=== PATIENT | male | born 1980 | race Caucasian/White ===

== ENCOUNTER 2025-01-16 10:36 | Inpatient (IN) | payer OTHER, SELFPAY ==
--- NOTE | ~2025-01-16 | MR_ITS ---
EXAM: MRI of the left foot without and with IV contrast. TECHNIQUE: Multiplanar multisequence MR imaging was performed through the left midfoot and forefoot before and after administration of contrast. INDICATION: Soft tissue ulceration the second digit Contrast: 10 mL Gadavist. PRIOR: January 16, 2025 x-ray FINDINGS: Lisfranc ligament: Intact Soft tissues: There is edema and moderate to severe fatty replacement of foot musculature. There is no hyperenhancement of the deep soft tissues. There is edema in the dorsal subcutaneous soft tissues without hyperenhancement. There is edema involving the deep and superficial soft tissues of the second digit at the base of the toe through the left lateral of the DIP joint with hyperenhancement. There is an 18 mm wide area of skin ulceration dorsal to the head of the proximal phalanx. There is no loculated fluid collection. There is a joint effusion with mild hyperenhancement of the synovium. Metatarsophalangeal (MTP) joint and sesamoids of the great toe: There is a joint effusion. Joint capsule structures and plantar plate complex are intact. Lesser MTP joints & Plantar plates: Intact and unremarkable. Bones/Marrow: The head of the proximal phalanx of the second digit demonstrates very subtle decreased signal on T1 imaging with cortical thinning. There is mildly increased signal on fluid sensitive sequences in the diaphysis through the head of the proximal phalanx with concordant mild enhancement. Bone marrow signal is physiologic otherwise. MR/MR foot LT wo/w con IMPRESSION: There is dorsal skin ulceration adjacent the second proximal phalanx head with cellulitis involving deep and superficial soft tissues of the second toe extending from the base of the toe through the DIP joint. There are subtle signal changes on T1 imaging in the head of the proximal phalanx that could be reactive in nature or could represent early osteomyelitis. Signal changes and mild enhancement in the diaphysis of the proximal phalanx are probably reactive in nature. Small joint effusion with mild enhancement without thickening of the synovium is probably reactive in nature and less likely to represent a septic arthritis. First MTP joint effusion. Electronically signed by: Lai Escudero MD 01/16/2025 04:30 PM EDT
--- NOTE | ~2025-01-16 | XR_ITS ---
EXAMINATION: XR FOOT, LEFT CLINICAL INFORMATION: pain, injury COMPARISON: None available. TECHNIQUE: AP, lateral, and oblique views of the left foot. FINDINGS: No acute cortical disruption or gross malalignment. No lytic or blastic lesions. Exostosis at the Achilles tendon insertion. No gross joint effusion. No subcutaneous emphysema. Soft tissue calcifications in the plantar regions of the toes. Sclerosis in the navicular. XR/XR foot LT min 3V IMPRESSION: Degenerative changes without acute fracture or dislocation. Enthesopathy, Achilles tendon. Electronically signed by: Adolfo Ho MD 01/16/2025 01:11 PM EDT
--- NOTE | ~2025-01-16 | US_ITS ---
EXAMINATION: US TRIPLEX LOWER EXTREMITY, LEFT CLINICAL INFORMATION: Edema, left lower extremity COMPARISON: None available. TECHNIQUE: Color-flow triplex imaging with spectral analysis and compression Doppler were performed on the left lower extremity. FINDINGS: Respiratory variation, normal compression and augmented flow are demonstrated in the interrogated left common femoral vein, superficial femoral vein, profunda femoral vein, popliteal vein and midcalf peroneal and posterior tibial venous segments . There is no Pennington's cyst. US/US venous duplex LE IMPRESSION: No acute deep venous thrombosis interrogated veins, left lower extremity. Negative for DVT. Electronically signed by: Adolfo Ho MD 01/16/2025 12:06 PM EDT
[2025-01-16 10:43] VITALS: BP 181/85; PULSE 122; RESP 18; TEMP 36.4; O2SAT 97; BMI 43.0
--- NOTE | 2025-01-16 10:50 | ECG_ITS ---
Test Reason : stomach pain Blood Pressure : */* mmHG Vent. Rate : 123 BPM Atrial Rate : 123 BPM P-R Int : 146 ms QRS Dur : 86 ms QT Int : 312 ms P-R-T Axes : 7 -58 19 degrees QTcB Int : 446 ms Sinus tachycardia Left axis deviation cannot exclude old Inferior infarct , age undetermined Abnormal ECG No previous ECGs available Referred By: Sahara Xavier Electronically Signed By: HARSHAD MESA
[2025-01-16 11:08] LABS: MANUAL DIFF FLAG NO
[2025-01-16 11:15] LABS: Hematocrit 40.6 % (42.0-52.0); Hemoglobin 13.9 g/dl (14.0-18.0); Imm Gran Abs Auto 0.03 X10*3/uL (0.00-0.03); Imm Gran Pct Auto 0.2 % (0.0-0.4); Lymphocytes Absolute Auto 1.2 X10*3/uL (1.2-4.9); Mean Corpuscular HGB Conc 34.2 g/dl (31.0-36.0); Mean Corpuscular Hemoglobin 27.4 pg (27.0-33.0); Mean Corpuscular Volume 79.9 fL (80.0-98.0); NRBC Abs Auto 0.000 X10*3/uL (0.0-0.012); NRBC Pct Auto 0.0 /100WBC (0.0-0.2); Platelet Count 219 X10*3/uL (160-400); Red Blood Count 5.08 X10*6/uL (4.60-5.80); White Blood Count 13.2 X10*3/uL (4.8-10.8)
[2025-01-16 11:30] LABS: Alanine Aminotransferase 23 U/L (0-40); Albumin Level 4.3 g/dL (3.5-5.0); Alkaline Phosphatase 97 U/L (39-117); Anion Gap 15 (12-20); Aspartate Amino Transferase 16 U/L (5-37); Blood Urea Nitrogen 15 mg/dL (9-16); Calcium 9.8 mg/dL (8.4-10.2); Carbon Dioxide 21 mmol/L (22-29); Chloride 100 mmol/L (96-108); Creatinine Clr Calc Pharmacy 193.8; Estimated Glomerular Filt Rate > 60; Magnesium 1.6 mg/dL (1.6-2.6); Potassium 4.3 mmol/L (3.3-5.1); Sodium 132 mmol/L (135-145); Total Protein 7.4 g/dL (6.5-8.0)
[2025-01-16 11:31] LABS: B Type Natriuretic Peptide 31 pg/mL (<100)
[2025-01-16 11:34] LABS: Troponin-I High Sensitivity 3.1 ng/L (<3.5-35.0)
--- NOTE | 2025-01-16 12:01 | ED_ITS ---
HPI - General Adult General Chief complaint: General Medical Stated complaint: Upset Stomach Head Pain Leg Pain Time Seen by Provider: 01/16/25 12:01 Source: patient Mode of arrival: ambulatory Limitations: no limitations History of Present Illness ED Provider: Sahara Xavier PA-C HPI narrative: Patient is a 44 year old assigned male at with no reported medical history presenting to the emergency department today with a headache, nausea, and left lower ankle / foot pain. Patient states that over the last 2 weeks he has had fogginess and headaches as well as a left foot wound that is worsening. Patient states that the wound on his foot started as a blister and has now worsened. Patient states that he started feeling nauseous this morning. Patient denies any dizziness, lightheadedness, abdominal pain, vomiting, fever, chills, blurry vision, double vision, loss of vision, chest pain, difficulty breathing, shortness of breath, back pain, night sweats, pain with urination, increased urinary frequency, increased urinary urgency, blood in his urine or stool, syncope or a near syncopal episode, bowel incontinence, bladder incontinence, or any other complaints at this time. Related Data Home Medications ?Medication ?Instructions ?Recorded ?Confirmed No Known Home Meds 01/16/25 01/16/25 Allergies Allergy/AdvReac Type Severity Reaction Status Date / Time No Known Allergies* Allergy Unknown Uncoded 01/16/25 10:47 Review of Systems 2 Constitutional: Constitutional: Reports no additional constitutional complaints, Denies chills, Denies fever(s), Reports headache(s) and Denies night sweats Eyes: Eyes: Reports no additional eye complaints, Denies blurry vision, Denies change in vision, Denies diplopia, Denies eye discharge, Denies loss of vision and Denies eye pain ENT: Denies dizziness and Reports headache(s) Cardiovascular: Cardiovascular: Reports no additional cardiovascular complaints, Denies chest pain, Denies lightheadedness, Denies Loss of Consciousness and Denies dyspnea Respiratory: Respiratory: Reports no additional respiratory complaints and Denies dyspnea Gastrointestinal: Gastrointestinal: Reports no additional gastrointestinal complaints, Denies abdominal pain, Denies melena, Denies hematochezia, Denies change in bowel habits, Denies change in stool character, Reports nausea and Denies vomiting Genitourinary: Genitourinary: Reports no additional male genitourinary complaints, Denies hematuria, Denies oliguria, Denies difficulty urinating, Denies dysuria, Denies urinary frequency, Denies urinary hesitancy, Denies urinary incontinence and Denies urinary urgency Musculoskeletal: Musculoskeletal: Reports no additional musculoskeletal complaints, Denies numbness and Denies tingling Comments: left foot pain / left ankle pain / left foot wound Neurologic: Denies dizziness, Reports headache(s), Denies loss of vision, Denies numbness and Denies tingling Psychiatric: Psychiatric: Reports no additional psychiatric complaints Endocrine: Endocrine: Reports no additional endocrine complaints Hematologic/Lymphatic: Hematologic/Lymphatic: Reports no additional hematologic/lymphatic complaints Allergic/Immunologic: Allergic/Immunologic: Reports no additional allergic/immunologic complaints [facility] Past Medical History Attestation statement: The following information was validated with the patient. Source: old records reviewed and nursing notes reviewed Social History Social History Advance Directives: No Advance Directives Information Provided: Yes Do you have a plan to hurt others: No Plan Physical Exam ED Vital Signs: Vital Signs - 24 hr 01/16/25 10:43 01/16/25 12:45 Temperature 97.6 F 99.9 F Pulse Rate 122 H 121 H Respiratory Rate 18 18 Blood Pressure 181/85 H 127/81 Pulse Oximetry 97 96 Oxygen Delivery Method Room Air Room Air BMI result Body Mass Index 43.0 Const General: cooperative, no acute distress, alert and awake Nutritional Appearance: well nourished Orientation/consciousness: patient oriented x3 HENMT Head: Yes normal to inspection and Yes atraumatic Ears: hearing grossly normal bilaterally and external ears normal General nose exam: Normal external nose present, no nasal discharge noted and no epistaxis Face and sinus: Yes normal facial exam, No abrasion and No laceration Mouth: Normal oral and palatal mucosa present, no drooling and no muffled voice Eyes General: appearance normal, both eyes and all related structures Periorbital: periorbital findings normal Eyelids: Yes eyelids normal Conjunctivae: conjunctivae normal Pupils: Equal, round and reactive pupils present EOM: EOMs intact bilaterally Neck Neck: Yes normal visual inspection and Yes full ROM Resp Effort & Inspection: normal respiratory effort and able to speak in complete sentences Neuro General: patient oriented x3, moves all extremities and CN's II-XI intact bilaterally Cranial nerves: Yes Equal, round and reactive pupils present Cognition (Neuro): normal cognition Extrem Other: General: Yes full ROM and Yes capillary refill normal Psych Appearance: grossly normal Mental Status: mental status grossly normal Affect: normal affect Attitude: cooperative Thought process: Normal thought process present Thought content: Normal thought content present Insight: Good insight present (Psych) Medications Administered Generic Name Dose Route Start Last Admin Trade Name Freq PRN Reason Stop Dose Admin Piperacillin Sod/Tazobactam 50 mls @ 100 mls/hr 01/16/25 18:00 01/16/25 18:19 Sod 3.375 gm/ Sodium Chloride IV Infused Q6H GIGI Infusion Insulin Human Lispro 0 unit 01/16/25 16:30 01/16/25 17:49 Insulin Lispro 100 Unit/Ml 3 Ml Vial SUBCUT 8 unit QIDACHS [facility] Administration Protocol Sodium Chloride 3 ml 01/16/25 16:00 01/16/25 15:48 0.9 % Sodium Chloride Flush 3 Ml Syringe IVFLUSH Not Given QSHIFT [facility] Discontinued Medications Generic Name Dose Route Start Last Admin Trade Name Freq PRN Reason Stop Dose Admin Gadobutrol 10 ml 01/16/25 16:16 01/16/25 16:17 Gadobutrol 10 Ml Vial IVPUSH 01/16/25 16:17 10 ml ONCE ONE Administration Piperacillin Sod/Tazobactam 50 mls @ 100 mls/hr 01/16/25 12:15 01/16/25 13:01 Sod 3.375 gm/ Sodium Chloride IV 01/16/25 12:44 Infused ONCE ONE Infusion Vancomycin HCl 2,000 mg in 500 mls @ 250 mls/hr 01/16/25 12:30 01/16/25 15:07 Vancomycin/Ns IV 01/16/25 14:29 Infused ONCE ONE Infusion Lactated Ringer's 1,000 mls @ 999 mls/hr 01/16/25 13:45 01/16/25 15:36 Lr IV 01/16/25 14:45 Infused .Q1H1M GIGI Infusion Sodium Chloride 1,000 mls @ 999 mls/hr 01/16/25 14:37 01/16/25 16:26 Ns IV 01/16/25 15:37 Infused .Q1H1M STA Infusion Medical Decision Making Medical Decision Making MDM Narrative: Patient is a 44 year old assigned male at with no reported medical history presenting to the emergency department today with a headache, nausea, and left lower ankle / foot pain. Patient's physical exam was as noted in the physical exam portion of this note. Patient's blood work showed WBC 13.2, ESR 26, glucose 377, hgb A1C 11.6, CRP 15.30, and beta-hydroxy of 0.40. Patient's EKG showed tachycardia. Patient's foot x-ray and left lower US showed no acute process. Patient's clinical presentation is most consistent with new onset DM and cellulitis of the left foot. I spoke with the hospitalist team who agreed to admission. I explained my physical exam findings as well as all test results to the patient. I answered all questions asked by the patient. I became suspicious of sepsis in this patient at 1215pm however I did NOT suspect severe sepsis. Patient was given IV Vancomycin and Zosyn. Patient verbalized agreement and understanding with this treatment plan and admission. Differential Diagnosis Differential Diagnoses: The differential diagnosis associated with the presentation includes Cellulitis Osteomyelitis Sepsis New onset DM Admission/Observation Consideration of admission/observation: Escalation of care including admission/observation considered Patient admitted as noted in the MDM Rationale portion of this note. Consult Healthcare Provider Management of the patient was discussed with: Hospitalist (agreed to admission as noted in the MDM Rationale portion of this note. ) Lab Data [facility] Lab Attestation statement: I reviewed the patient's lab results. My interpretation of these results are in the MDM Rationale portion of this note. 01/16/25 11:04 01/16/25 11:04 Labs: Lab Results 01/16/25 01/16/25 Range/Units 11:04 12:25 WBC 13.2 H (4.8-10.8) X10*3/uL RBC 5.08 (4.60-5.80) X10*6/uL Hgb 13.9 L (14.0-18.0) g/dl Hct 40.6 L (42.0-52.0) % MCV 79.9 L (80.0-98.0) fL MCH 27.4 (27.0-33.0) pg MCHC 34.2 (31.0-36.0) g/dl RDW 14.0 (11.0-16.0) % Plt Count 219 (160-400) X10*3/uL MPV 10.2 (9.4-12.4) fL Immature Gran % (Auto) 0.2 (0.0-0.4) % Neut % (Auto) 84.7 H (45-73) % Lymph % (Auto) 8.9 L (20-40) % [place] % (Auto) 5.9 (2-11) % Eos % (Auto) 0.1 (0-4) % Baso % (Auto) 0.2 (0-2) % Lymph # (Auto) 1.2 (1.2-4.9) X10*3/uL [place] # (Auto) 0.8 (0.1-1.2) X10*3/uL Eos # (Auto) 0.0 (0.0-0.4) X10*3/uL Baso # (Auto) 0.0 (0.0-0.2) X10*3/uL Abs Immat Gran (auto) 0.03 (0.00-0.03) X10*3/uL Absolute Neuts (auto) 11.2 H (2.0-8.3) x10*3/uL Absolute Nucleated RBC 0.000 (0.0-0.012) X10*3/uL Nucleated RBC % (auto) 0.0 (0.0-0.2) /100WBC ESR 26 H (0-15) MM/HR Sodium 132 L (135-145) mmol/L Potassium 4.3 (3.3-5.1) mmol/L Chloride 100 (96-108) mmol/L Carbon Dioxide 21 L (22-29) mmol/L Anion Gap 15 (12-20) BUN 15 (9-16) mg/dL Creatinine 0.75 (0.5-1.4) mg/dL Estim Creat Clear Calc 193.8 Estimated GFR > 60 Random Glucose 377 H* (60-115) mg/dL Estimat Average Glucose 286 mg/dL Hemoglobin A1c % 11.6 H (<6.0) % Lactic Acid 2.0 (0.5-2.0) mmol/L Calcium 9.8 (8.4-10.2) mg/dL Magnesium 1.6 (1.6-2.6) mg/dL Total Bilirubin 0.9 (0.0-1.0) mg/dL AST 16 (5-37) U/L ALT 23 (0-40) U/L Alkaline Phosphatase 97 (39-117) U/L Troponin I High Sens 3.1 (<3.5-35.0) ng/L C-Reactive Protein 15.30 H (< or = 0.50) mg/dL B-Natriuretic Peptide 31 (<100) pg/mL Total Protein 7.4 (6.5-8.0) g/dL Albumin 4.3 (3.5-5.0) g/dL Beta-Hydroxybutyrate 0.40 H (0.02-0.27) mmol/L Independent Interpretation I performed an independent interpretation of an: EKG, Plain X-Ray and Ultrasound Interpretation: My interpretation is in agreement with the radiologist's impression of these imaging studies. L EXAMINATION: US TRIPLEX LOWER EXTREMITY, LEFT CLINICAL INFORMATION: Edema, left lower extremity COMPARISON: None available. TECHNIQUE: Color-flow triplex imaging with spectral analysis and compression Doppler were performed on the left lower extremity. FINDINGS: Respiratory variation, normal compression and augmented flow are demonstrated in the interrogated left common femoral vein, superficial femoral vein, profunda femoral vein, popliteal vein and midcalf peroneal and posterior tibial venous segments . There is no Pennington's cyst. US/US venous duplex LE IMPRESSION: No acute deep venous thrombosis interrogated veins, left lower extremity. Negative for DVT. Electronically signed by: Adolfo Ho MD 01/16/2025 12:06 PM EDT Dictated By: Adolfo Angelo MD Signed By: Electronically signed by Adolfo Smith MD 01/16/25 1206 EXAMINATION: XR FOOT, LEFT CLINICAL INFORMATION: pain, injury COMPARISON: None available. TECHNIQUE: AP, lateral, and oblique views of the left foot. FINDINGS: No acute cortical disruption or gross malalignment. No lytic or blastic lesions. Exostosis at the Achilles tendon insertion. No gross joint effusion. No subcutaneous emphysema. Soft tissue calcifications in the plantar regions of the toes. Sclerosis in the navicular. XR/XR foot LT min 3V IMPRESSION: Degenerative changes without acute fracture or dislocation. Enthesopathy, Achilles tendon. Electronically signed by: Adolfo Ho MD 01/16/2025 01:11 PM EDT Dictated By: Adolfo Angelo MD Signed By: Electronically signed by Adolfo Smith MD 01/16/25 1311 I independently interpreted this EKG and am in agreement with the below findings: Vent. Rate: 123 BPM Atrial Rate: 123 BPM P-R Int: 146 ms QRS Dur: 86 ms QT Int: 312 ms P-R-T Axes: 7 -58 19 degrees QTcB Int: 446 ms Sinus tachycardia Left anterior fascicular block Inferior infarct, age undetermined Abnormal ECG No previous ECGs available DD/ 1059 Radiology Impression Discussion of test interpretation with radiology: I have reviewed the radiologist's reading. Chronic Conditions Patient?s care impacted by: Diabetes (new onset) Critical Care Time Critical Care Time Critical Care Time: Yes Total Critical Care Time: 49 Attestation: I spent 49 minutes of Critical Care Time with this patient. This does not include time spent on separately reported billable procedures. Discharge Plan Discharge Clinical Impression: Diabetes, Cellulitis Patient Disposition: Admitted As Inpatient
[2025-01-16 12:32] LABS: Hemoglobin A1C 374.4909 umol/L; Total Hemoglobin (HGBA1C) 3609.8410 umol/L
[2025-01-16 12:45] VITALS: BP 127/81; PULSE 121; RESP 18; TEMP 37.7; O2SAT 96
[2025-01-16] MEDS: vancomycin/NS 2,000 MG/500 ML PLAST..BAG 250 MG IV (13:07)
--- NOTE | 2025-01-16 13:56 | P.HPHOSP_ITS ---
History of Present Illness Date of Service: 01/16/25 Attending physician on admission: Tank Arzola Chief Complaint: Left foot swelling Florentin Philippe is a 44 years old man with past medical history significant for type 2 diabetes mellitus not on therapy due to insurance issue presents to the emergency department complaining of left foot swelling that started yesterday. About a week ago he noted a blister on top of the 2nd toe that is now draining foul-smelling discharge. He denied any fever, chills, nausea or vomiting. He denied any acute cardiopulmonary or gastrointestinal symptoms. He denied alcohol abuse, illicit drug use or tobacco smoking. In the ED, he was found to have stable vital signs except for tachycardia. Blood workup showed leukocytosis of 13.2. CRP is 15.30. Hemoglobin is 13.9 and platelets 219. There are no significant electrolyte imbalances. Glucose is 377. Renal function and LFTs are normal. Beta hydroxybutyrate is 0.40. Left lower extremity venous ultrasound showed no DVT. Left foot x-ray showed degenerative changes without acute fracture, dislocation or osteomyelitis changes. ECG shows sinus tachycardia, 123 beats per minute, left anterior fascicular block without ischemic changes. ED tx: Zosyn 3.375 mg IV, vancomycin 2 g, LR 1 L bolus Review of Systems 2 Review of Systems: All 12 systems were reviewed and normal except as noted in HPI. [facility] Social History Advance Directives: No Advance Directives Information Provided: Yes Do you have a plan to hurt others: No Plan Meds Allergies Allergy/AdvReac Type Severity Reaction Status Date / Time No Known Allergies* Allergy Unknown Uncoded 01/16/25 10:47 Active Medications: Current Medications Acetaminophen (Acetaminophen 325 Mg Tablet) 975 mg PO Q6H PRN PRN Reason: Pain, Mild 1-3,fever,headache Calcium Carbonate (Calcium Carbonate 750 Mg Tab.Chew) 750 mg PO Q4H PRN PRN Reason: Heartburn Enoxaparin Sodium (Enoxaparin Sodium 40 Mg/0.4 Ml Syringe) 40 mg SUBCUT Q24H GIGI Vancomycin HCl (Vancomycin/Ns) 2,000 mg in 500 mls @ 250 mls/hr IV ONCE ONE Stop: 01/16/25 14:29 Last Admin: 01/16/25 13:07 Dose: 250 mls/hr Lactated Ringer's (Lr) 1,000 mls @ 999 mls/hr IV .Q1H1M GIGI Stop: 01/16/25 14:45 Magnesium Hydroxide (Milk Of Magnesia 30 Ml Oral.Susp) 30 ml PO DAILY PRN PRN Reason: Constipation Melatonin (Melatonin 3 Mg Tablet) 6 mg PO BEDTIME PRN PRN Reason: Insomnia Sodium Chloride (0.9 % Sodium Chloride Flush 3 Ml Syringe) 3 ml IVFLUSH QSHIFT GIGI Home Medications ?Medication ?Instructions ?Recorded ?Confirmed ?Last Taken ?Type No Known Home Meds 01/16/25 01/16/25 Un known History Physical Exam 2 Vital Signs and Narrative: Vital Signs: Last Vital Signs Temp 99.9 F 01/16/25 12:45 Pulse 121 H 01/16/25 12:45 Resp 18 01/16/25 12:45 BP 127/81 01/16/25 12:45 Pulse Ox 96 01/16/25 12:45 O2 Del Method Room Air 01/16/25 12:45 BMI result Body Mass Index 43.0 Constitutional - Awake and Alert, No apparent distress. Afebrile. HEENT - PER, EOMI Heart - RRR, No murmurs. Lungs - Normal lung expansion, Normal respiratory effort, No respiratory distress, CTA bilaterally Abdomen - NT / ND; +BS; No rebound or guarding Extremities - left lower extremity: Pitting edema up to upper third of the leg. Left foot: Diffuse erythema and discoloration of the skin over the dorsum of the foot and toes. Quite toe with dystrophic thickened nail. Second toe with well demarcated sacral ulcer over the dorsum surface measuring approximately 1- 1.5 cm with surrounding erythema and no necrosis. Wound is foul smelling. Musculoskeletal - Normal inspection, normal ROM Skin - Warm/Dry Neurological - Alert & oriented x3. Moving all the extremities spontaneously. Normal speech. Psychological - Appropriate affect Results Labs 01/16/25 11:04 01/16/25 11:04 Labs: Laboratory Results - last 24 hr 01/16/25 01/16/25 11:04 12:25 MCV 79.9 L MCH 27.4 MCHC 34.2 RDW 14.0 Plt Count 219 MPV 10.2 Immature Gran % (Auto) 0.2 Neut % (Auto) 84.7 H Lymph % (Auto) 8.9 L [place] % (Auto) 5.9 Eos % (Auto) 0.1 Baso % (Auto) 0.2 Lymph # (Auto) 1.2 [place] # (Auto) 0.8 Eos # (Auto) 0.0 Baso # (Auto) 0.0 Abs Immat Gran (auto) 0.03 Absolute Neuts (auto) 11.2 H Absolute Nucleated RBC 0.000 Nucleated RBC % (auto) 0.0 ESR 26 H Anion Gap 15 Estim Creat Clear Calc 193.8 Estimated GFR > 60 Random Glucose 377 H* Estimat Average Glucose 286 Hemoglobin A1c % 11.6 H Lactic Acid 2.0 Calcium 9.8 Magnesium 1.6 Total Bilirubin 0.9 AST 16 ALT 23 Alkaline Phosphatase 97 C-Reactive Protein 15.30 H B-Natriuretic Peptide 31 Total Protein 7.4 Albumin 4.3 Beta-Hydroxybutyrate 0.40 H Imaging Radiologist's Impressions: Impressions Venous Duplex 01/16/25 11:24 IMPRESSION: No acute deep venous thrombosis interrogated veins, left lower extremity. Negative for DVT. Electronically signed by: Adolfo Ho MD 01/16/2025 12:06 PM EDT RP Foot X-Ray 01/16/25 12:50 IMPRESSION: Degenerative changes without acute fracture or dislocation. Enthesopathy, Achilles tendon. Electronically signed by: Adolfo Ho MD 01/16/2025 01:11 PM EDT RP Assessment and Plan (1) Uncontrolled type 2 diabetes mellitus with hyperglycemia: Status: Acute (2) Obesity, class 3: Status: Acute Plan Florentin Philippe is a 44 y/o man presents with: Left 2nd toe infected diabetic ulcer with SIRS/sepsis criteria but no severe sepsis Continue empiric IV antibiotic therapy with ceftriaxone and azithromycin. Continue IV fluids. One consult. Blood cultures obtained in the ED -will follow results. Obtain left foot MRI to assess for osteomyelitis. Elevate extremity. Uncontrolled type 2 diabetes mellitus. BG checks before meals and bedtime. Insulin sliding scale. Diabetic diet. Check hemoglobin A1c. Obesity, class 3. Weight loss. Code status: Full DVT prophylaxis: Lovenox Patient will need hospitalization for at least 2 midnights for left foot infected diabetic ulcer treatment with IV antibiotics and diabetes mellitus control with insulin. Quality Stroke Does the patient have a stroke diagnosis?: No VTE Prior VTE?: No VTE Risk Level:: Medical - moderate - high VTE Device Contraindication: Treatment Not Indicated VTE Drug Contraindication: N/A - Med Ordered
--- NOTE | 2025-01-16 14:05 | PHA.MEDREC ---
Addendum entered by Grace Weinstein RPh 01/16/25 15:03: MED REC REVIEWED BY [facility] Original Note: Pharmacy Consult ? Medication Reconciliation Pharmacy has completed the medication reconciliation. Patient states he is not taking any medications.
[2025-01-16] MEDS: Lactated Ringers 1,000 ML 999 ML IV (14:35)
--- NOTE | 2025-01-16 14:58 | PC.NURSE ---
MRI screening form completed with patient-- faxed to MRI dept
--- NOTE | 2025-01-16 15:35 | PC.NURSE ---
pt taken to MRI by ED transport
[2025-01-16 16:30] VITALS: BP 139/86; PULSE 110; RESP 20; TEMP 37.7; O2SAT 97
[2025-01-16 17:26] LABS: Glucose, Whole Blood 325 mg/dL (60-115)
[2025-01-16 18:45] VITALS: BP 136/78; PULSE 106; RESP 19; TEMP 37.4; O2SAT 97
[2025-01-16 20:54] VITALS: BP 133/60; PULSE 93; RESP 18; TEMP 37.6; O2SAT 97
[2025-01-16 20:54] LABS: Glucose, Whole Blood 295 mg/dL (60-115)
[2025-01-16 21:33] VITALS: BMI 43.3
--- NOTE | 2025-01-16 22:37 | HO.SKINPHOTO ---
Location: Left 2nd toe Category: DM ulcer Stage: Length: Width: Depth: cm Location: Category: Stage: Length: Width: Depth: cm Location: Category: Stage: Length: Width: Depth: cm Location: Category: Stage: Length: Width: Depth: cm Location: Category: Stage: Length: Width: Depth: cm Location: Category: Stage: Length: Width: Depth: cm
[2025-01-16] MEDS: 0.9 % Sodium Chloride Flush 3 ML SYRINGE IVFLUSH (23:13)
[2025-01-17 03:37] VITALS: BP 114/58; PULSE 90; RESP 16; TEMP 36.3; O2SAT 97
[2025-01-17 04:00] VITALS: BP 132/60; PULSE 80; RESP 18; TEMP 36.2; O2SAT 95
[2025-01-17 07:19] LABS: Glucose, Whole Blood 266 mg/dL (60-115)
[2025-01-17 07:31] VITALS: BP 136/78; PULSE 90; RESP 18; TEMP 36.2; O2SAT 96
[2025-01-17 07:57] LABS: Hematocrit 35.5 % (42.0-52.0); Hemoglobin 11.8 g/dl (14.0-18.0); Mean Corpuscular HGB Conc 33.2 g/dl (31.0-36.0); Mean Corpuscular Hemoglobin 26.9 pg (27.0-33.0); Mean Corpuscular Volume 81.1 fL (80.0-98.0); NRBC Abs Auto 0.000 X10*3/uL (0.0-0.012); NRBC Pct Auto 0.0 /100WBC (0.0-0.2); Platelet Count 176 X10*3/uL (160-400); Red Blood Count 4.38 X10*6/uL (4.60-5.80); White Blood Count 7.2 X10*3/uL (4.8-10.8)
[2025-01-17 08:06] LABS: Hemoglobin A1C 315.1418 umol/L; Total Hemoglobin (HGBA1C) 3071.3168 umol/L
[2025-01-17 08:17] LABS: Anion Gap 13 (12-20); Blood Urea Nitrogen 15 mg/dL (9-16); Calcium 8.8 mg/dL (8.4-10.2); Carbon Dioxide 25 mmol/L (22-29); Chloride 102 mmol/L (96-108); Cholesterol 214 mg/dL (<200); Creatinine Clr Calc Pharmacy 191.8; Estimated Glomerular Filt Rate > 60; HDL Cholesterol 33 mg/dL (>40); Magnesium 1.7 mg/dL (1.6-2.6); Potassium 4.2 mmol/L (3.3-5.1); Sodium 136 mmol/L (135-145); Thyroid Stimulating Hormone 0.62 uIU/mL (0.32-4.0); Triglycerides 323 mg/dL (<150)
[2025-01-17] MEDS: Insulin Glargine,Hum.rec.anlog 100 UNIT/ML 10 ML VIAL 15 UNIT SUBCUT (08:51)
[2025-01-17] MEDS: 0.9 % Sodium Chloride Flush 3 ML SYRINGE IVFLUSH ×3 (08:51→23:39)
--- NOTE | 2025-01-17 09:55 | MHC.CM.PN ---
Addendum entered by Rahel Rosenberg 01/17/25 10:15: PER MD ROUNDS, PT LIKELY TO NEED IV ABX, REFERRAL SENT TO [facility] PT HAS NO PCP, [facility] ALSO ASKED TO PROVIDE RN SERVICES Original Note: PT REPORTS HE LIVES WITH HIS PARENTS AND IS INDEPENDENT WITH CARE HE HAS NO SERVICES, HE HAS BEEN WITHOUT DM MEDS/SUPPLIES HE ALSO HAS NO PCP HE WAS UNINSURED UNTIL RECENTLY PCP BROCHURE PROVIDED HE DECLINES A HCP DCP: HOME NO SERVICES VIA FAMILY TRANSPORT. PT WILL NEED COST OF MEDS/SUPPLIES CHECKED PRIOR TO DC
[2025-01-17 10:08] LABS: Reflex LDLD? No
--- NOTE | 2025-01-17 10:59 | HO.WOUND ---
Wound Consult: Initial 44yr old?male admitted to [facility] [place] - See progress notes and H&P for detailed history.? Wound consult placed for .? Patient agreeable to assessment and photo documentation.? Etiology: ??Present on Admission Measurements: cm x cm x cm Wound Bed: Drainage / Odor: Edges: ? Judi wound: ? No Induration, Fluctuance or Warmth noted Pain: Goals of Treatment: ? Recommendations: 1. Turn and Reposition every 2 hours and as needed for patient comfort.? Use pillows or wedges to support off loading positions. 2. Off Load all bony prominences with use of pillows and heel boots if needed.? Apply Preventative foams where needed. ? 3. Monitor for incontinence and moisture control, use barrier creams when needed for prevention and treatment. 4. Provide adequate and supplemental nutrition.? 5. Order or Continue low air loss mattress. 6. When applicable maintain blood glucose levels per Providers order. Re-consult wound care Nurse for wound deterioration or wound changes. Left Toe- Cleanse with NS moist gauze, Pat dry.? Apply barrier to periwound, apply Durafiber AG to wound bed, cover with dry gauze, ABd pad and wrap.? Change Daily while inpatient and Change every other day at time of d/c. Recommend follow up out patient Wound Clinic at [address] [place] [id number] and to call for an appointment at time of discharge. [phone].?
[2025-01-17 11:11] LABS: Glucose, Whole Blood 317 mg/dL (60-115)
--- NOTE | 2025-01-17 12:01 | HE.PHANOTE ---
RE: vanco Trough returned @ 6.5. Increased frequency to 1500 mg Q8H with predicted AUC 539 and trough 16.6. Next trough to be drawn 01/18 @1000. Will continue to monitor.
--- NOTE | 2025-01-17 12:53 | HO.WOUND ---
Wound Consult: Initial 44yr old?male admitted to [facility] [place] on 01/16/25 - See progress notes and H&P for detailed history.? Wound consult placed for Left 2nd toe.? Patient agreeable to assessment and photo documentation.? Patient reports he was not treating his diabetes prior to this admission. Patient was educated on importance of outpatient folow up with his PCP and Endocrinolgist for Diabetic teaching and management, in addition I recommend he follow up with out pt wound clinic for continued wound healing. Left Foot Etiology: Diabetic 2nd Toe??Present on Admission Measurements: 2.5cm x 2cm x 0.6cm Wound Bed: Drainage / Odor: No odor banks creamy yellow drainage Edges: ? macerated and epibole Judi wound: ?Macerated red pink tissue No Induration, No Fluctuance noted Pain: denies reports neuropathy Goals of Treatment: ? Moisture management with antimicrobial properties with Durafiber AG Plantar and web space noted to be intact at this time. Recommendations: Provide adequate and supplemental nutrition.? When applicable maintain blood glucose levels per Providers order. Left Toe- Elevate foot with pillows. Limit prolonged walking and standing. Cleanse with NS moist gauze, Pat dry.? Apply barrier to periwound, apply Durafiber AG to wound bed, cover with dry gauze, ABd pad and wrap.? Change Daily while inpatient and Change every other day at time of d/c. Recommend follow up out patient Wound Clinic at [address] [place] [id number] and to call for an appointment at time of discharge. [phone].? Re-consult wound care Nurse for wound deterioration or wound changes.
--- NOTE | 2025-01-17 13:01 | HO.PM.IMPN ---
Subjective Subjective Date of Service: 01/17/25 Interval History: Feeling better overall Pain well-controlled No fever or chills Reports has not been on diabetic medications in some time; not adhering to a diabetic diet 1/2 blood cultures positive for Gram+ cocci Review of Systems Review of Systems: Yes all other systems are reviewed and are negative Physical Exam Exam: Exam: General: AOx3, no acute distress Resp: CTA bilaterally CVS: S1, S2, RRR GI: +BS, NT, no distention Skin: Warm, dry Neuro: Cranial nerves II-XII grossly intact bilaterally. Motor grossly intact bilaterally Extremities: Right foot wrapped in clean and dry dressing; see picture in H&P for initial presentation Psych: Appropriate affect Vital Signs: Vital Signs: Last Vital Signs Temp 97.2 F 01/17/25 07:31 Pulse 90 01/17/25 07:31 Resp 18 01/17/25 07:31 BP 136/78 01/17/25 07:31 Pulse Ox 96 01/17/25 07:31 O2 Del Method Room Air 01/17/25 07:31 BMI result Body Mass Index 43.3 Objective Data Active Medications Acetaminophen (Acetaminophen 325 Mg Tablet) 975 mg PO Q6H PRN PRN Reason: Pain, Mild 1-3,fever,headache Calcium Carbonate (Calcium Carbonate 750 Mg Tab.Chew) 750 mg PO Q4H PRN PRN Reason: Heartburn Dextrose (Dextrose 50 % 25 Gm/50 Ml Syringe) 25 gm IVPUSH Q15M PRN; Protocol PRN Reason: per Hypoglycemia Standing Ord. Enoxaparin Sodium (Enoxaparin Sodium 40 Mg/0.4 Ml Syringe) 40 mg SUBCUT Q24H [facility] Last Admin: 01/17/25 08:52 Dose: 40 mg Documented By: VALERI Glucose (Glucose Gel 15 Gm Gel..Gram.) 15 gm PO Q15M PRN; Protocol PRN Reason: per Hypoglycemia Standing Ord. Piperacillin Sod/Tazobactam (Sod 3.375 gm/ Sodium Chloride) 50 mls @ 100 mls/hr IV Q6H [facility] Last Admin: 01/17/25 12:40 Dose: 100 mls/hr Documented By: VALERI Vancomycin HCl 1,500 mg/ (Sodium Chloride) 500 mls @ 333.333 mls/hr IV Q8H [facility] Insulin Glargine (Insulin Glargine,Hum.Rec.Anlog 100 Unit/Ml 10 Ml Vial) 15 unit SUBCUT DAILY [facility] Last Admin: 01/17/25 08:51 Dose: 15 unit Documented By: VALERI Insulin Human Lispro (Insulin Lispro 100 Unit/Ml 3 Ml Vial) 0 unit SUBCUT QIDACHS [facility]; Protocol Last Admin: 01/17/25 12:40 Dose: 8 unit Documented By: VALERI Magnesium Hydroxide (Milk Of Magnesia 30 Ml Oral.Susp) 30 ml PO DAILY PRN PRN Reason: Constipation Melatonin (Melatonin 3 Mg Tablet) 6 mg PO BEDTIME PRN PRN Reason: Insomnia Pharmacy Consult (Consult Rx Vancomycin Dosing) 1 each MISCELLANE DAILY PRN PRN Reason: Consult order Sodium Chloride (0.9 % Sodium Chloride Flush 3 Ml Syringe) 3 ml IVFLUSH QSHIFT [facility] Last Admin: 01/17/25 08:51 Dose: 3 ml Documented By: VALERI Labs 01/17/25 07:29 01/17/25 07:29 Labs: Laboratory Results - last 24 hr 01/16/25 01/16/25 01/16/25 11:04 17:22 20:50 MCV MCH MCHC RDW Plt Count MPV Absolute Nucleated RBC Nucleated RBC % (auto) ESR 26 H Anion Gap Estim Creat Clear Calc Estimated GFR POC Glucose 325 H 295 H Random Glucose Estimat Average Glucose Hemoglobin A1c % Calcium Magnesium Triglycerides Cholesterol LDL Cholesterol, Calc HDL Cholesterol TSH Random Vancomycin 01/17/25 01/17/25 01/17/25 07:15 07:29 10:56 MCV 81.1 MCH 26.9 L MCHC 33.2 RDW 14.0 Plt Count 176 MPV 10.2 Absolute Nucleated RBC 0.000 Nucleated RBC % (auto) 0.0 ESR Anion Gap 13 Estim Creat Clear Calc 191.8 Estimated GFR > 60 POC Glucose 266 H Random Glucose 321 H Estimat Average Glucose 283 Hemoglobin A1c % 11.5 H Calcium 8.8 D Magnesium 1.7 Triglycerides 323 H Cholesterol 214 H LDL Cholesterol, Calc 117 H HDL Cholesterol 33 L TSH 0.62 Random Vancomycin 6.5 L 01/17/25 11:07 MCV MCH MCHC RDW Plt Count MPV Absolute Nucleated RBC Nucleated RBC % (auto) ESR Anion Gap Estim Creat Clear Calc Estimated GFR POC Glucose 317 H Random Glucose Estimat Average Glucose Hemoglobin A1c % Calcium Magnesium Triglycerides Cholesterol LDL Cholesterol, Calc HDL Cholesterol TSH Random Vancomycin Microbiology Microbiology Results: Microbiology 01/16/25 12:25 Blood Culture - Preliminary Blood - Venous Prelim: GPC Gram Stain only Assessment and Plan (1) Cellulitis: Status: Acute Plan Pt is a 44-year-old male with a PMH significant for diabetes type 2 currently not on home medication due to insurance who presented to the ED with left foot swelling and wound on 2nd foot. Pt was admitted to the hospital for left lower extremity cellulitis with concerns for early osteomyelitis. Left foot cellulitis with sepsis and concerns for early osteomyelitis Initially met sepsis criteria with leukocytosis and tachycardia; no severe features MRI showing possible early osteomyelitis of 2nd toe In the setting of uncontrolled diabetes Continue vanc and Zosyn, day 2 Infectious disease consult Wound care consult Gram-positive bacteremia 1/2 BCx ppositive for Gram-positive cocci Treat with vanc and Zosyn as above Infectious disease consult Follow culture sensitivities Uncontrolled diabetes type 2 Has not been taking any home medication due to insurance issues A1c 11.[address] on sliding scale insulin, Lantus 15 units daily Diabetic diet, diabetic counseling Hyperlipidemia Triglycerides 323, cholesterol 214, LDL 117, HDL 33 Needs to establish with PCP for followup and monitoring Pt needs continued hospitalization due to need for continued IV antibiotics while awaiting culture sensitivities and possible PICC line for prolonged IV antibiotics. Quality Stroke Does the patient have a stroke diagnosis?: No VTE Prior VTE?: No VTE Risk Level:: Medical - moderate - high VTE Device Contraindication: Treatment Not Indicated VTE Drug Contraindication: N/A - Med Ordered
[2025-01-17 15:15] VITALS: BP 135/84; PULSE 72; RESP 18; TEMP 36.4; O2SAT 97
[2025-01-17 16:00] LABS: Glucose, Whole Blood 259 mg/dL (60-115)
[2025-01-17 20:00] VITALS: BP 148/81; PULSE 92; RESP 19; TEMP 36.7; O2SAT 97
[2025-01-17 21:05] LABS: Glucose, Whole Blood 264 mg/dL (60-115)
[2025-01-18 03:58] VITALS: BP 128/58; PULSE 83; RESP 20; TEMP 36.1; O2SAT 97
[2025-01-18 06:47] LABS: Creatinine Clr Calc Pharmacy 199.7; Estimated Glomerular Filt Rate > 60
[2025-01-18 07:43] LABS: Glucose, Whole Blood 272 mg/dL (60-115)
[2025-01-18 07:51] VITALS: BP 145/89; PULSE 80; RESP 18; TEMP 36; O2SAT 97
[2025-01-18] MEDS: Insulin Glargine,Hum.rec.anlog 100 UNIT/ML 10 ML VIAL 15 UNIT SUBCUT (07:52)
[2025-01-18] MEDS: 0.9 % Sodium Chloride Flush 3 ML SYRINGE IVFLUSH ×2 (07:55→21:23)
[2025-01-18] MEDS: Insulin Glargine,Hum.rec.anlog 100 UNIT/ML 10 ML VIAL SUBCUT (08:43)
--- NOTE | 2025-01-18 09:20 | P.CONGS_ITS ---
History of Present Illness Consult details Consult date: 01/18/25 <Indiana Martinez PA-C - Last Filed: 01/18/25 11:00> Reason for consult: wound care <DEVORAH River Last Filed: 01/18/25 11:00> Requesting physician: Jermaine Andrade <Indiana Martinez PA-C - Last Filed: 01/18/25 11:00> Narrative: Florentin Philippe is a 44 year old man with PMH significant for type 2 diabetes mellitus not on medication who presented to the ED with complaints of left foot pain, swelling and redness. He reports he developed a blister on the top of his left foot about a week ago. It ruptured and he developed an open wound. He then began to develop pain, redness and swelling of his left second toe/foot. He denied any fever, chills, nausea or vomiting. He was admitted to the hospitalist service for further treatment of the infected left foot ulcer, cellulitis and sepsis. He is on IV vanco and zosyn. General surgery was consulted for the left foot ulcer. 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 He had new boots on and developed the blister. He denies similar prior episodes. He is a diabetic not on any medications with POCs in the mid 200s to 300s. He currently denies any foot pain and thinks the swelling has improved. <DEVORAH River Last Filed: 01/18/25 11:00> Review of Systems 2 Review of Systems: Yes all other systems are reviewed and are negative < DEVORAH River Last Filed: 01/18/25 11:00> [facility] Social History Social History: Social History Household Members: Family Housing: House Do you presently have visiting nurse or other home services: No Patient Tobacco Use Status: Never used Tobacco service: No <DEVORAH River Last Filed: 01/18/25 11:00> Meds Allergies/Adverse reactions: Allergies Allergy/AdvReac Type Severity Reaction Status Date / Time No Known Allergies* Allergy Unknown Uncoded 01/16/25 10:47 <Indiana Martinez PA-C - Last Filed: 01/18/25 11:00> Active Medications: Current Medications Acetaminophen (Acetaminophen 325 Mg Tablet) 975 mg PO Q6H PRN PRN Reason: Pain, Mild 1-3,fever,headache Calcium Carbonate (Calcium Carbonate 750 Mg Tab.Chew) 750 mg PO Q4H PRN PRN Reason: Heartburn Dextrose (Dextrose 50 % 25 Gm/50 Ml Syringe) 25 gm IVPUSH Q15M PRN; Protocol PRN Reason: per Hypoglycemia Standing Ord. Enoxaparin Sodium (Enoxaparin Sodium 40 Mg/0.4 Ml Syringe) 40 mg SUBCUT Q24H [facility] Last Admin: 01/18/25 07:53 Dose: 40 mg Glucose (Glucose Gel 15 Gm Gel..Gram.) 15 gm PO Q15M PRN; Protocol PRN Reason: per Hypoglycemia Standing Ord. Piperacillin Sod/Tazobactam (Sod 3.375 gm/ Sodium Chloride) 50 mls @ 100 mls/hr IV Q6H [facility] Last Infusion: 01/18/25 07:21 Dose: Infused Vancomycin HCl 1,500 mg/ (Sodium Chloride) 500 mls @ 333.333 mls/hr IV Q8H [facility] Last Infusion: 01/18/25 06:40 Dose: Infused Insulin Glargine (Insulin Glargine,Hum.Rec.Anlog 100 Unit/Ml 10 Ml Vial) 20 unit SUBCUT DAILY [facility] Last Admin: 01/18/25 08:38 Dose: Not Given Insulin Human Lispro (Insulin Lispro 100 Unit/Ml 3 Ml Vial) 0 unit SUBCUT QIDACHS [facility]; Protocol Last Admin: 01/18/25 07:53 Dose: 6 unit Magnesium Hydroxide (Milk Of Magnesia 30 Ml Oral.Susp) 30 ml PO DAILY PRN PRN Reason: Constipation Melatonin (Melatonin 3 Mg Tablet) 6 mg PO BEDTIME PRN PRN Reason: Insomnia Pharmacy Consult (Consult Rx Vancomycin Dosing) 1 each MISCELLANE DAILY PRN PRN Reason: Consult order Sodium Chloride (0.9 % Sodium Chloride Flush 3 Ml Syringe) 3 ml IVFLUSH QSHIFT [facility] Last Admin: 01/18/25 07:55 Dose: 3 ml <Indiana Martinez PA-C - Last Filed: 01/18/25 11:00> Home medications: Home Medications ?Medication ?Instructions ?Recorded ?Confirmed ?Last Taken ?Type No Known Home Meds 01/16/25 01/16/25 Un known History <DEVORAH River Last Filed: 01/18/25 11:00> Physical Exam 2 Vital Signs: Vital Signs: Last Vital Signs Temp 96.8 F 01/18/25 07:51 Pulse 80 01/18/25 07:51 Resp 18 01/18/25 07:51 BP 145/89 H 01/18/25 07:51 Pulse Ox 97 01/18/25 07:51 O2 Del Method Room Air 01/18/25 07:51 BMI result Body Mass Index 43.3 <DEVORAH River Last Filed: 01/18/25 11:00> Const: General: comfortable, no acute distress and alert <DEVORAH River Last Filed: 01/18/25 11:00> Nutritional Appearance: obese <DEVORAH River Last Filed: 01/18/25 11:00> Orientation/consciousness: patient oriented x3 <DEVORAH River Last Filed: 01/18/25 11:00> Resp: Effort & Inspection: normal respiratory effort <DEVORAH River Last Filed: 01/18/25 11:00> Skin: Other: warm and dry <DEVORAH River Last Filed: 01/18/25 11:00> Neuro: General: patient oriented x3 and moves all extremities <DEVORAH River Last Filed: 01/18/25 11:00> Extrem: Other: left foot with 2cm x 2cm ulcer of dorsal aspect of second toe with some overlying slough, no necrotic tissue, no purulence or drainage noted, very mild edema and surrounding erythema <DEVORAH River Last Filed: 01/18/25 11:00> Results Labs Result diagrams: 01/17/25 07:29 01/20/25 06:15 <DEVORAH River Last Filed: 01/18/25 11:00> Labs: Abnormal lab results 01/17/25 01/17/2501/17/25 Range/Units 10:56 11:07 15:57 POC Glucose 317 H 259 H (60-115) mg/dL Random Vancomycin 6.5 L (15-20) mcg/mL 01/17/25 01/18/25 Range/Units 21:01 07:40 POC Glucose 264 H 272 H (60-115) mg/dL Random Vancomycin (15-20) mcg/mL [facility] 01/18/25 05:47 Creatinine 0.73 All other labs normal. <Indiana Martinez PA-C - Last Filed: 01/18/25 11:00> Imaging Additional studies: MRI and labs reviewed left foot MRI: dorsal skin ulceration adjacent the second proximal phalanx head with cellulitis involving deep and superficial soft tissues of the second toe extending from the base of the toe through the DIP joint with subtle signal changes on T1 imaging in the head of the proximal phalanx that could be reactive in nature or could represent early osteomyelitis. <Indiana Martinez PA-C Last Filed: 01/18/25 11:00> Assessment and Plan (1) Cellulitis: Qualifiers: Laterality: left Site of cellulitis: extremity Site of cellulitis of extremity: toe Qualified Code(s): L03.032 - Cellulitis of left toe <DEVORAH River Last Filed: 01/18/25 11:00> Status: Acute <DEVORAH River Last Filed: 01/18/25 11:00> (2) Uncontrolled type 2 diabetes mellitus with hyperglycemia: Status: Acute <DEVORAH River Last Filed: 01/18/25 11:00> (3) Ulcer of left second toe: Status: Acute <DEVORAH River Last Filed: 01/18/25 11:00> 44 year old man with PMH significant for type 2 diabetes mellitus who developed open wound to left second toe followed by erythema, pain and edema admitted for infected wound of left toe with cellulitis, sepsis. He is on IV vanco and zosyn. Overall, wound is clean appearing and no debridement is currently necessary. He was seen by wound care coordinator and silver alginate was recommended to wound bed and I agree with this, continue daily local wound care while he remains inpatient. Left foot elevation to reduce edema, cont IV abx. 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 We discussed good local wound care with f/u in wound care center and POC control to promote wound healing. Recommend good fitting shoes to prevent further skin breakdown. He understands and agrees with the plan. <Indiana Martinez PA-C - Last Filed: 01/18/25 11:00> 44 year old man with PMH significant for type 2 diabetes mellitus who developed open wound to left second toe followed by erythema, pain and edema admitted for infected wound of left toe with cellulitis, sepsis. He is on IV vanco and zosyn. Overall, wound is clean appearing and no debridement is currently necessary. He was seen by wound care coordinator and silver alginate was recommended to wound bed and I agree with this, continue daily local wound care while he remains inpatient. Left foot elevation to reduce edema, cont IV abx. Would recommend ID consult for concern of the osteomyelitis for her recommendations about possible nursing home IV abx. We discussed good local wound care with f/u in wound care center and POC control to promote wound healing. Recommend good fitting shoes to prevent further skin breakdown. He understands and agrees with the plan. Patient is seen and examined independently. Hemoglobin A1c in the range of 11.5 isn't going to allow for good wound healing. Patient has palpable pedal pulse so vascular system is good. Wound is as described above and involving the tendon tissue. Plan to do dressing changes and treat with IV antibiotics. Aggressive glucose control both short term and nursing home is essential. Offloading shoe we will be helpful to not rub this area. Patient understands and agrees with the above plan <Pepper Giraldo MD - Last Filed: 01/20/25 21:22> Procedures Date of Service Date of Service: 01/18/25 <Indiana Martinez PA-C - Last Filed: 01/18/25 11:00> 01/20/25 <Pepper Giraldo MD - Last Filed: 01/20/25 21:22>
--- NOTE | 2025-01-18 09:57 | HO.PM.IMPN ---
Subjective Subjective Date of Service: 01/18/25 Interval History: Feeling better No significant pain in foot No acute events overnight No other acute medical complaints at this time Review of Systems Review of Systems: Yes all other systems are reviewed and are negative Physical Exam Exam: Exam: General: AOx3, no acute distress Resp: CTA bilaterally CVS: S1, S2, RRR GI: +BS, NT, no distention Skin: Warm, dry Neuro: Cranial nerves II-XII grossly intact bilaterally. Motor grossly intact bilaterally Extremities: Left foot and 2nd toe as pictured below Psych: Appropriate affect Vital Signs: Vital Signs: Last Vital Signs Temp 96.8 F 01/18/25 07:51 Pulse 80 01/18/25 07:51 Resp 18 01/18/25 07:51 BP 145/89 H 01/18/25 07:51 Pulse Ox 97 01/18/25 07:51 O2 Del Method Room Air 01/18/25 07:51 BMI result Body Mass Index 43.3 Objective Data Active Medications Acetaminophen (Acetaminophen 325 Mg Tablet) 975 mg PO Q6H PRN PRN Reason: Pain, Mild 1-3,fever,headache Calcium Carbonate (Calcium Carbonate 750 Mg Tab.Chew) 750 mg PO Q4H PRN PRN Reason: Heartburn Dextrose (Dextrose 50 % 25 Gm/50 Ml Syringe) 25 gm IVPUSH Q15M PRN; Protocol PRN Reason: per Hypoglycemia Standing Ord. Enoxaparin Sodium (Enoxaparin Sodium 40 Mg/0.4 Ml Syringe) 40 mg SUBCUT Q24H COUNT INCLUDES [facility] Last Admin: 01/18/25 07:53 Dose: 40 mg Documented By: KIRSTIE Glucose (Glucose Gel 15 Gm Gel..Gram.) 15 gm PO Q15M PRN; Protocol PRN Reason: per Hypoglycemia Standing Ord. Piperacillin Sod/Tazobactam (Sod 3.375 gm/ Sodium Chloride) 50 mls @ 100 mls/hr IV Q6H COUNT INCLUDES THE [facility] Last Infusion: 01/18/25 07:21 Dose: Infused Documented By: SHANTA Vancomycin HCl 1,500 mg/ (Sodium Chloride) 500 mls @ 333.333 mls/hr IV Q8H COUNT INCLUDES [facility] Last Infusion: 01/18/25 06:40 Dose: Infused Documented By: SHANTA Insulin Glargine (Insulin Glargine,Hum.Rec.Anlog 100 Unit/Ml 10 Ml Vial) 20 unit SUBCUT DAILY COUNT INCLUDES [facility] Last Admin: 01/18/25 08:38 Dose: Not Given Documented By: KIRSTIE Non-Admin Reason: Physician Approved Insulin Human Lispro (Insulin Lispro 100 Unit/Ml 3 Ml Vial) 0 unit SUBCUT QIDACHS COUNT INCLUDES THE [facility]; Protocol Last Admin: 01/18/25 07:53 Dose: 6 unit Documented By: KIRSTIE Magnesium Hydroxide (Milk Of Magnesia 30 Ml Oral.Susp) 30 ml PO DAILY PRN PRN Reason: Constipation Melatonin (Melatonin 3 Mg Tablet) 6 mg PO BEDTIME PRN PRN Reason: Insomnia Pharmacy Consult (Consult Rx Vancomycin Dosing) 1 each MISCELLANE DAILY PRN PRN Reason: Consult order Sodium Chloride (0.9 % Sodium Chloride Flush 3 Ml Syringe) 3 ml IVFLUSH QSHIFT COUNT [facility]CLUDES [facility] Last Admin: 01/18/25 07:55 Dose: 3 ml Documented By: KIRSTIE Labs 01/17/25 07:29 01/18/25 05:47 Labs: Laboratory Results - last 24 hr 01/17/25 01/17/25 01/17/25 10:56 11:07 15:57 Estim Creat Clear Calc Estimated GFR POC Glucose 317 H 259 H Random Vancomycin 6.5 L 01/17/25 01/18/25 01/18/25 21:01 05:47 07:40 Estim Creat Clear Calc 199.7 Estimated GFR > 60 POC Glucose 264 H 272 H Random Vancomycin Microbiology Microbiology Results: Microbiology 01/16/25 12:25 Blood Culture - Preliminary Blood - Venous No growth after 24 hours. 01/16/25 12:25 Blood Culture - Preliminary Blood - Venous Prelim: GPC Gram Stain only Assessment and Plan (1) Cellulitis: Status: Acute Assessment and Plan: Pt is a 44-year-old male with a PMH significant for diabetes type 2 currently not on home medication due to insurance who presented to the ED with left foot swelling and wound on 2nd foot. Pt was admitted to the hospital for left lower extremity cellulitis with concerns for early osteomyelitis. Left foot cellulitis and ulceration with sepsis and concerns for early osteomyelitis Initially met sepsis criteria with leukocytosis and tachycardia; no severe features MRI showing possible early osteomyelitis of 2nd toe In the setting of uncontrolled diabetes Continue vanc and Zosyn, day 3 Infectious disease consult General surgery consult Wound care consult Gram-positive bacteremia 1/2 BCx ppositive for Gram-positive cocci Treat with vanc and Zosyn as above Infectious disease consult Follow culture sensitivities Uncontrolled diabetes type 2 Has not been taking any home medication due to insurance issues A1c 11.[address] on sliding scale insulin, Lantus 20 units daily Diabetic diet, diabetic counseling Hyperlipidemia Triglycerides 323, cholesterol 214, LDL 117, HDL 33 Needs to establish with PCP for followup and monitoring Pt needs continued hospitalization due to need for continued IV antibiotics while awaiting culture sensitivities and possible PICC line for prolonged IV antibiotics. Quality Stroke Does the patient have a stroke diagnosis?: No VTE Prior VTE?: No VTE Risk Level:: Medical - moderate - high VTE Device Contraindication: Treatment Not Indicated VTE Drug Contraindication: N/A - Med Ordered
[2025-01-18 11:10] LABS: Glucose, Whole Blood 258 mg/dL (60-115)
--- NOTE | 2025-01-18 11:35 | HE.PHANOTE ---
re: vanco Trough returned at 15.3. Decreasing dose to 1250 mg Q8H to ensure safety and efficacy. Predicted AUC 426 and trough 13. Next trough to be drawn 01/19 @1000.
--- NOTE | 2025-01-18 11:52 | MHC.CM.PN ---
Per MD rounds patient not medically cleared for dc. Awaiting ID eval. Will likely need PICC & IV abx. [facility] can accept and provide nursing (no PCP). CM will continue to follow.
--- NOTE | 2025-01-18 13:27 | P.CNID_ITS ---
History of Present Illness Data of Consult Service Date: 01/18/25 Requesting physician: Jermaine Andrade Primary Care Provider: None Physician HPI Reason for consult: infection left foot,DM He presents with second toe redness and swelling. He had blister one week ago and it popped and was worse after. He has no fever or chills. MRI shows possible second proximal phalanx T1 signal. Blood culture 1/2 staph species,pending. Review of Systems 2 Review of Systems: Yes all other systems are reviewed and are negative [facility] Family History Family history: reviewed and not pertinent Social History Social History Household Members: Family Housing: House Do you presently have visiting nurse or other home services: No Patient Tobacco Use Status: Never used Tobacco service: No Meds Allergies Allergy/AdvReac Type Severity Reaction Status Date / Time No Known Allergies* Allergy Unknown Uncoded 01/16/25 10:47 Active Medications: Current Medications Acetaminophen (Acetaminophen 325 Mg Tablet) 975 mg PO Q6H PRN PRN Reason: Pain, Mild 1-3,fever,headache Calcium Carbonate (Calcium Carbonate 750 Mg Tab.Chew) 750 mg PO Q4H PRN PRN Reason: Heartburn Dextrose (Dextrose 50 % 25 Gm/50 Ml Syringe) 25 gm IVPUSH Q15M PRN; Protocol PRN Reason: per Hypoglycemia Standing Ord. Enoxaparin Sodium (Enoxaparin Sodium 40 Mg/0.4 Ml Syringe) 40 mg SUBCUT Q24H [facility] Last Admin: 01/18/25 07:53 Dose: 40 mg Glucose (Glucose Gel 15 Gm Gel..Gram.) 15 gm PO Q15M PRN; Protocol PRN Reason: per Hypoglycemia Standing Ord. Piperacillin Sod/Tazobactam (Sod 3.375 gm/ Sodium Chloride) 50 mls @ 100 mls/hr IV Q6H [facility] Last Infusion: 01/18/25 12:45 Dose: Infused Vancomycin HCl 1,250 mg/ (Sodium Chloride) 250 mls @ 166.667 mls/hr IV Q8H [facility] Last Admin: 01/18/25 12:42 Dose: 166.67 mls/hr Insulin Glargine (Insulin Glargine,Hum.Rec.Anlog 100 Unit/Ml 10 Ml Vial) 20 unit SUBCUT DAILY [facility] Last Admin: 01/18/25 08:38 Dose: Not Given Insulin Human Lispro (Insulin Lispro 100 Unit/Ml 3 Ml Vial) 0 unit SUBCUT QIDACHS [facility]; Protocol Last Admin: 01/18/25 11:20 Dose: 6 unit Magnesium Hydroxide (Milk Of Magnesia 30 Ml Oral.Susp) 30 ml PO DAILY PRN PRN Reason: Constipation Melatonin (Melatonin 3 Mg Tablet) 6 mg PO BEDTIME PRN PRN Reason: Insomnia Pharmacy Consult (Consult Rx Vancomycin Dosing) 1 each MISCELLANE DAILY PRN PRN Reason: Consult order Sodium Chloride (0.9 % Sodium Chloride Flush 3 Ml Syringe) 3 ml IVFLUSH QSHIFT [facility] Last Admin: 01/18/25 07:55 Dose: 3 ml Home Medications ?Medication ?Instructions ?Recorded ?Confirmed ?Last Taken ?Type No Known Home Meds 01/16/25 01/16/25 Un known History Physical Exam 2 Vital Signs: Vital Signs: Last Vital Signs Temp 96.8 F 01/18/25 07:51 Pulse 80 01/18/25 07:51 Resp 18 01/18/25 07:51 BP 145/89 H 01/18/25 07:51 Pulse Ox 97 01/18/25 07:51 O2 Del Method Room Air 01/18/25 07:51 BMI result Body Mass Index 43.3 Const: General: cooperative HEENT: Head: Yes normal to inspection Face and sinus: Yes normal facial exam Mouth: Normal oral and palatal mucosa present Teeth and gingiva: d entition normal Eyes: General: appearance normal, both eyes and all related structures P upils: Equal, round and reactive pupils present Resp: Effort & Inspection: normal respiratory effort Cardio: Rate: regular rate Rhythm: regular rhythm GI: Palpation (GI): Soft to palpation and nontender : General: Yes no CVA tenderness Back/Spine/Pelvis: Back: no CVA tenderness Skin: General skin exam: no rashes or lesions noted Neuro: General: moves all extremities Cranial nerves: Yes Equal, round and reactive pupils present Extrem: Other: left second toe open and red,rounded area .5 cm Psych: Appearance: grossly normal Results Labs 01/17/25 07:29 01/18/25 05:47 Labs: BMP 01/18/25 05:47 Creatinine 0.73 Microbiology Microbiology Results: Microbiology 01/16/25 12:25 Blood - Venous Blood Culture - Preliminary Staphylococcus species 01/16/25 12:25 Blood - Venous Blood Culture - Preliminary No growth after 24 hours. Assessment and Plan (1) Uncontrolled type 2 diabetes mellitus with hyperglycemia: Status: Acute (2) Ulcer of left second toe: Status: Acute Plan Possible staph or strep,less likely gram negative. Vancomycin and piperacillin/tazobactam for now. Will get six weeks IV antibiotics ?Daptomycin. Follow Podiatry outpatient.
[2025-01-18 15:29] VITALS: BP 165/80; PULSE 91; RESP 16; TEMP 36.6; O2SAT 95
[2025-01-18 16:07] LABS: Glucose, Whole Blood 244 mg/dL (60-115)
[2025-01-18 19:35] VITALS: BP 142/80; PULSE 102; RESP 18; TEMP 36.4; O2SAT 95
[2025-01-18 20:09] LABS: Glucose, Whole Blood 265 mg/dL (60-115)
[2025-01-19 03:18] VITALS: BP 132/61; PULSE 81; RESP 18; TEMP 36.2; O2SAT 98
[2025-01-19 07:23] LABS: Creatinine Clr Calc Pharmacy 199.7; Estimated Glomerular Filt Rate > 60
[2025-01-19 07:34] LABS: Glucose, Whole Blood 269 mg/dL (60-115)
[2025-01-19 07:43] VITALS: BP 144/82; PULSE 83; RESP 16; TEMP 36.4; O2SAT 97
[2025-01-19] MEDS: Insulin Glargine,Hum.rec.anlog 100 UNIT/ML 10 ML VIAL 25 UNIT SUBCUT (07:50)
[2025-01-19] MEDS: 0.9 % Sodium Chloride Flush 3 ML SYRINGE IVFLUSH ×2 (07:51→19:29)
[2025-01-19 11:18] LABS: Glucose, Whole Blood 192 mg/dL (60-115)
--- NOTE | 2025-01-19 11:27 | HO.PM.IMPN ---
Subjective Subjective Date of Service: 01/19/25 Interval History: No acute events overnight Overall feeling well POCs remain elevated over 200 Review of Systems Review of Systems: Yes all other systems are reviewed and are negative Physical Exam Exam: Exam: General: AOx3, no acute distress Resp: CTA bilaterally CVS: S1, S2, RRR GI: +BS, NT, no distention Skin: Warm, dry Neuro: Cranial nerves II-XII grossly intact bilaterally. Motor grossly intact bilaterally Extremities: Left foot covered in clean dressing Psych: Appropriate affect Vital Signs: Vital Signs: Last Vital Signs Temp 97.5 F 01/19/25 07:43 Pulse 83 01/19/25 07:43 Resp 16 01/19/25 07:43 BP 144/82 H 01/19/25 07:43 Pulse Ox 97 01/19/25 07:43 O2 Del Method Room Air 01/19/25 07:43 BMI result Body Mass Index 43.3 Objective Data Active Medications Acetaminophen (Acetaminophen 325 Mg Tablet) 975 mg PO Q6H PRN PRN Reason: Pain, Mild 1-3,fever,headache Calcium Carbonate (Calcium Carbonate 750 Mg Tab.Chew) 750 mg PO Q4H PRN PRN Reason: Heartburn Dextrose (Dextrose 50 % 25 Gm/50 Ml Syringe) 25 gm IVPUSH Q15M PRN; Protocol PRN Reason: per Hypoglycemia Standing Ord. Enoxaparin Sodium (Enoxaparin Sodium 40 Mg/0.4 Ml Syringe) 40 mg SUBCUT Q24H [facility] Last Admin: 01/19/25 07:51 Dose: 40 mg Documented By: KIRSTIE Glipizide (Glipizide 5 Mg Tablet) 5 mg PO BIDWM [facility] Last Admin: 01/19/25 07:50 Dose: 5 mg Documented By: KIRSTIE Glucose (Glucose Gel 15 Gm Gel..Gram.) 15 gm PO Q15M PRN; Protocol PRN Reason: per Hypoglycemia Standing Ord. Piperacillin Sod/Tazobactam (Sod 3.375 gm/ Sodium Chloride) 50 mls @ 100 mls/hr IV Q6H [facility] Last Infusion: 01/19/25 06:48 Dose: Infused Documented By: JAIRO Vancomycin HCl 1,250 mg/ (Sodium Chloride) 250 mls @ 166.667 mls/hr IV Q8H [facility] Last Infusion: 01/19/25 06:12 Dose: Infused Documented By: JAIRO Insulin Glargine (Insulin Glargine,Hum.Rec.Anlog 100 Unit/Ml 10 Ml Vial) 25 unit SUBCUT DAILY [facility] Last Admin: 01/19/25 07:50 Dose: 25 unit Documented By: KIRSTIE Insulin Human Lispro (Insulin Lispro 100 Unit/Ml 3 Ml Vial) 0 unit SUBCUT QIDACHS [facility]; Protocol Last Admin: 01/19/25 07:50 Dose: 6 unit Documented By: KIRSTIE Magnesium Hydroxide (Milk Of Magnesia 30 Ml Oral.Susp) 30 ml PO DAILY PRN PRN Reason: Constipation Melatonin (Melatonin 3 Mg Tablet) 6 mg PO BEDTIME PRN PRN Reason: Insomnia Pharmacy Consult (Consult Rx Vancomycin Dosing) 1 each MISCELLANE DAILY PRN PRN Reason: Consult order Sodium Chloride (0.9 % Sodium Chloride Flush 3 Ml Syringe) 3 ml IVFLUSH QSHIFT [facility] Last Admin: 01/19/25 07:51 Dose: 3 ml Documented By: KIRSTIE Labs 01/17/25 07:29 01/19/25 06:06 Labs: Laboratory Results - last 24 hr 01/18/25 01/18/25 01/19/25 16:02 20:03 06:06 Hold Purple Top SEE NOTE Estim Creat Clear Calc 199.7 Estimated GFR > 60 POC Glucose 244 H 265 H Hold Yellow Top See Note Vancomycin Trough 01/19/25 01/19/25 01/19/25 07:29 10:07 11:14 Hold Purple Top Estim Creat Clear Calc Estimated GFR POC Glucose 269 H 192 H Hold Yellow Top Vancomycin Trough 13.2 Microbiology Microbiology Results: Microbiology 01/16/25 12:25 Blood Culture - Final Blood - Venous Staphylococcus aureus 01/16/25 12:25 Blood Culture - Preliminary Blood - Venous No growth after 48 hours. Assessment and Plan (1) Ulcer of left second toe: Status: Acute (2) Cellulitis: Status: Acute Plan Pt is a 44-year-old male with a PMH significant for diabetes type 2 currently not on home medication due to insurance who presented to the ED with left foot swelling and wound on 2nd foot. Pt was admitted to the hospital for left lower extremity cellulitis with concerns for early osteomyelitis. Left foot cellulitis and ulceration with sepsis and concerns for early osteomyelitis Initially met sepsis criteria with leukocytosis and tachycardia; no severe features MRI showing possible early osteomyelitis of 2nd toe In the setting of uncontrolled diabetes Continue vanc and Zosyn, day 4 Infectious disease following, recommended IV antibiotics x6 weeks upon d/c, ?dapto General surgery consulted, no debridement currently necessary Wound care consulted, recommend: Provide adequate and supplemental nutrition.? When applicable maintain blood glucose levels per Providers order. Left Toe- Elevate foot with pillows. Limit prolonged walking and standing. Cleanse with NS moist gauze, Pat dry.? Apply barrier to periwound, apply Durafiber AG to wound bed, cover with dry gauze, ABd pad and wrap.? Change Daily while inpatient and Change every other day at time of d/c. Recommend follow up out patient Wound Clinic at [address] [place] [id number] and to call for an appointment at time of discharge. [phone].? Gram-positive bacteremia 1/2 BCx ppositive for Gram-positive cocci Treat with vanc and Zosyn as above Infectious disease following Follow culture sensitivities Uncontrolled diabetes type 2 Has not been taking any home medication due to insurance issues A1c 11.6 POCs continue to be elevated, >200 Continue SSI, Lantus increased to 25 units daily, will start Glipizide 5mg bidwm Diabetic diet, diabetic counseling Hyperlipidemia Triglycerides 323, cholesterol 214, LDL 117, HDL 33 Needs to establish with PCP for followup and monitoring Pt needs continued hospitalization due to need for continued IV antibiotics while awaiting culture sensitivities and PICC line for prolonged IV antibiotics. Quality Stroke Does the patient have a stroke diagnosis?: No VTE Prior VTE?: No VTE Risk Level:: Medical - moderate - high VTE Device Contraindication: Treatment Not Indicated VTE Drug Contraindication: N/A - Med Ordered
[2025-01-19 15:18] VITALS: BP 145/70; PULSE 89; RESP 16; TEMP 36.1; O2SAT 97
[2025-01-19 16:26] LABS: Glucose, Whole Blood 159 mg/dL (60-115)
[2025-01-19 20:00] VITALS: BP 148/80; PULSE 94; RESP 18; TEMP 36.5; O2SAT 98
[2025-01-19 20:15] LABS: Glucose, Whole Blood 235 mg/dL (60-115)
[2025-01-20 03:27] VITALS: BP 148/76; PULSE 82; RESP 18; TEMP 36.3; O2SAT 96
[2025-01-20 06:51] LABS: Creatinine Clr Calc Pharmacy 227.8; Estimated Glomerular Filt Rate > 60
[2025-01-20 07:24] VITALS: BP 141/81; PULSE 85; RESP 16; TEMP 36.6; O2SAT 97
[2025-01-20 07:40] LABS: Glucose, Whole Blood 205 mg/dL (60-115)
[2025-01-20] MEDS: Insulin Glargine,Hum.rec.anlog 100 UNIT/ML 10 ML VIAL 25 UNIT SUBCUT (08:02)
[2025-01-20] MEDS: 0.9 % Sodium Chloride Flush 3 ML SYRINGE IVFLUSH ×2 (08:04→23:54)
[2025-01-20 11:16] LABS: Glucose, Whole Blood 189 mg/dL (60-115)
--- NOTE | 2025-01-20 11:26 | P.PNIM_ITS ---
Subjective Subjective Date of Service: 01/20/25 Interval History: No acute events overnight Doing well, no complaints Blood sugars mildly improved BCx staph aureus with pen/amp susceptibility Review of Systems Review of Systems: Yes all other systems are reviewed and are negative Physical Exam 2 Exam: Exam: General: AOx3, no acute distress Resp: CTA bilaterally CVS: S1, S2, RRR GI: +BS, NT, no distention Skin: Warm, dry Neuro: Cranial nerves II-XII grossly intact bilaterally. Motor grossly intact bilaterally Extremities: Left foot and 2nd toe as below Psych: Appropriate affect Vital Signs: Vital Signs: Last Vital Signs Temp 97.9 F 01/20/25 07:24 Pulse 85 01/20/25 07:24 Resp 16 01/20/25 07:24 BP 141/81 H 01/20/25 07:24 Pulse Ox 97 01/20/25 07:24 O2 Del Method Room Air 01/20/25 07:24 BMI result Body Mass Index 43.3 Objective Data Active Medications Acetaminophen (Acetaminophen 325 Mg Tablet) 975 mg PO Q6H PRN PRN Reason: Pain, Mild 1-3,fever,headache Calcium Carbonate (Calcium Carbonate 750 Mg Tab.Chew) 750 mg PO Q4H PRN PRN Reason: Heartburn Dextrose (Dextrose 50 % 25 Gm/50 Ml Syringe) 25 gm IVPUSH Q15M PRN; Protocol PRN Reason: per Hypoglycemia Standing Ord. Enoxaparin Sodium (Enoxaparin Sodium 40 Mg/0.4 Ml Syringe) 40 mg SUBCUT Q24H [facility] Last Admin: 01/20/25 08:02 Dose: 40 mg Documented By: KIRSTIE Glipizide (Glipizide 5 Mg Tablet) 5 mg PO BIDWM [facility] Last Admin: 01/20/25 08:02 Dose: 5 mg Documented By: KIRSTIE Glucose (Glucose Gel 15 Gm Gel..Gram.) 15 gm PO Q15M PRN; Protocol PRN Reason: per Hypoglycemia Standing Ord. Piperacillin Sod/Tazobactam (Sod 3.375 gm/ Sodium Chloride) 50 mls @ 100 mls/hr IV Q6H [facility] Last Infusion: 01/20/25 05:53 Dose: Infused Documented By: JAIRO Vancomycin HCl 1,250 mg/ (Sodium Chloride) 250 mls @ 166.667 mls/hr IV Q8H [facility] Last Infusion: 01/20/25 05:18 Dose: Infused Documented By: JAIRO Insulin Glargine (Insulin Glargine,Hum.Rec.Anlog 100 Unit/Ml 10 Ml Vial) 25 unit SUBCUT DAILY [facility] Last Admin: 01/20/25 08:02 Dose: 25 unit Documented By: KIRSTIE Insulin Human Lispro (Insulin Lispro 100 Unit/Ml 3 Ml Vial) 0 unit SUBCUT QIDACHS [facility]; Protocol Last Admin: 01/20/25 08:02 Dose: 4 unit Documented By: KIRSTIE Magnesium Hydroxide (Milk Of Magnesia 30 Ml Oral.Susp) 30 ml PO DAILY PRN PRN Reason: Constipation Melatonin (Melatonin 3 Mg Tablet) 6 mg PO BEDTIME PRN PRN Reason: Insomnia Pharmacy Consult (Consult Rx Vancomycin Dosing) 1 each MISCELLANE DAILY PRN PRN Reason: Consult order Sodium Chloride (0.9 % Sodium Chloride Flush 3 Ml Syringe) 3 ml IVFLUSH QSHIFT [facility] Last Admin: 01/20/25 08:04 Dose: 3 ml Documented By: KIRSTIE Labs 01/17/25 07:29 01/20/25 06:15 Labs: Laboratory Results - last 24 hr 01/19/25 01/19/25 01/20/25 16:22 19:42 06:15 Hold Purple Top SEE NOTE Estim Creat Clear Calc 227.8 Estimated GFR > 60 POC Glucose 159 H 235 H Random Vancomycin 01/20/25 01/20/25 01/20/25 07:27 09:54 11:08 Hold Purple Top Estim Creat Clear Calc Estimated GFR POC Glucose 205 H 189 H Random Vancomycin 13.3 L Microbiology Microbiology Results: Microbiology 01/16/25 12:25 Blood Culture - Final Blood - Venous Staphylococcus aureus Assessment and Plan (1) Osteophyte, left foot: Status: Acute Assessment and Plan: Pt is a 44-year-old male with a PMH significant for diabetes type 2 currently not on home medication due to insurance who presented to the ED with left foot swelling and wound on 2nd foot. Pt was admitted to the hospital for left lower extremity cellulitis with concerns for early osteomyelitis. Left foot cellulitis and ulceration with sepsis and concerns for early osteomyelitis Initially met sepsis criteria with leukocytosis and tachycardia; no severe features MRI showing possible early osteomyelitis of 2nd toe In the setting of uncontrolled diabetes Continue vanc and Zosyn, day 5 Infectious disease following, recommended IV antibiotics x6 weeks upon d/c, ?dapto General surgery consulted, no debridement currently necessary Wound care consulted, recommend: Left Toe- Elevate foot with pillows. Limit prolonged walking and standing. Cleanse with NS moist gauze, Pat dry.? Apply barrier to periwound, apply Durafiber AG to wound bed, cover with dry gauze, ABd pad and wrap.? Change Daily while inpatient and Change every other day at time of d/c. Recommend follow up out patient Wound Clinic at [address] [place] [phone] and to call for an appointment at time of discharge. [phone].? Gram-positive bacteremia 1/2 BCx positive for Staphylococcus aureus susceptible to pen/amp Treat with vanc and Zosyn as above Will repeat BXc on 01/20 Infectious disease following Follow repeat BCx Uncontrolled diabetes type 2 Has not been taking any home medication due to insurance issues A1c 11.6 POCs getting better, though still often >200 Continue SSI, Lantus 25 units daily, Glipizide 5mg bidwm Diabetic diet, diabetic counseling Hyperlipidemia Triglycerides 323, cholesterol 214, LDL 117, HDL 33 Needs to establish with PCP for followup and monitoring Pt needs continued hospitalization due to need for continued IV antibiotics while awaiting culture sensitivities and PICC line for prolonged IV antibiotics. Quality Stroke Does the patient have a stroke diagnosis?: No VTE Prior VTE?: No VTE Risk Level:: Medical - moderate - high VTE Device Contraindication: Treatment Not Indicated VTE Drug Contraindication: N/A - Med Ordered
[2025-01-20 16:00] VITALS: BP 141/76; PULSE 93; RESP 16; TEMP 36.3; O2SAT 97
[2025-01-20 16:29] LABS: Glucose, Whole Blood 208 mg/dL (60-115)
[2025-01-20 19:47] VITALS: BP 133/69; PULSE 95; RESP 17; TEMP 36.2; O2SAT 97
[2025-01-20 20:47] LABS: Glucose, Whole Blood 238 mg/dL (60-115)
--- NOTE | 2025-01-20 21:23 | P.PNGS_ITS ---
Subjective Subjective Date of Service: 01/20/25 Interval history: Patient feeling better no new issues glucose levels are more in control he wants to do whatever he can to save this foot Physical Exam 2 Vital Signs: Vital Signs: Last Vital Signs Temp 97.2 F 01/20/25 19:47 Pulse 95 01/20/25 19:47 Resp 17 01/20/25 19:47 BP 133/69 01/20/25 19:47 Pulse Ox 97 01/20/25 19:47 O2 Del Method Room Air 01/20/25 19:47 BMI result Body Mass Index 43.3 Const: General: cooperative, healthy appearing, comfortable and no acute distress Extrem: Other: Left 2nd toe wound looks a little stitch cleaner the surrounding skin that was peeling off is removed there is underlying erythema that looks more reactive. The actual open ulcerated wound involves the tendon but no true bone is seen at the base. Overall looks stitch cleaner and healthier. Objective Data Active Medications Acetaminophen (Acetaminophen 325 Mg Tablet) 975 mg PO Q6H PRN PRN Reason: Pain, Mild 1-3,fever,headache Calcium Carbonate (Calcium Carbonate 750 Mg Tab.Chew) 750 mg PO Q4H PRN PRN Reason: Heartburn Dextrose (Dextrose 50 % 25 Gm/50 Ml Syringe) 25 gm IVPUSH Q15M PRN; Protocol PRN Reason: per Hypoglycemia Standing Ord. Enoxaparin Sodium (Enoxaparin Sodium 40 Mg/0.4 Ml Syringe) 40 mg SUBCUT Q24H [facility] Last Admin: 01/20/25 08:02 Dose: 40 mg Documented By: KIRSTIE Glipizide (Glipizide 5 Mg Tablet) 5 mg PO BIDWM [facility] Last Admin: 01/20/25 17:05 Dose: 5 mg Documented By: KIRSTIE Glucose (Glucose Gel 15 Gm Gel..Gram.) 15 gm PO Q15M PRN; Protocol PRN Reason: per Hypoglycemia Standing Ord. Piperacillin Sod/Tazobactam (Sod 3.375 gm/ Sodium Chloride) 50 mls @ 100 mls/hr IV Q6H [facility] Last Infusion: 01/20/25 18:20 Dose: Infused Documented By: KIRSTIE Vancomycin HCl 1,250 mg/ (Sodium Chloride) 250 mls @ 166.667 mls/hr IV Q8H [facility] Last Admin: 01/20/25 19:38 Dose: 166.67 mls/hr Documented By: IVONE Insulin Glargine (Insulin Glargine,Hum.Rec.Anlog 100 Unit/Ml 10 Ml Vial) 25 unit SUBCUT DAILY [facility] Last Admin: 01/20/25 08:02 Dose: 25 unit Documented By: KIRSTIE Insulin Human Lispro (Insulin Lispro 100 Unit/Ml 3 Ml Vial) 0 unit SUBCUT QIDACHS [facility]; Protocol Last Admin: 01/20/25 20:47 Dose: 4 unit Documented By: IVONE Magnesium Hydroxide (Milk Of Magnesia 30 Ml Oral.Susp) 30 ml PO DAILY PRN PRN Reason: Constipation Melatonin (Melatonin 3 Mg Tablet) 6 mg PO BEDTIME PRN PRN Reason: Insomnia Pharmacy Consult (Consult Rx Vancomycin Dosing) 1 each MISCELLANE DAILY PRN PRN Reason: Consult order Sodium Chloride (0.9 % Sodium Chloride Flush 3 Ml Syringe) 3 ml IVFLUSH QSHIFT [facility] Last Admin: 01/20/25 16:59 Dose: Not Given Documented By: KIRSTIE Non-Admin Reason: Previously Administered Labs 01/17/25 07:29 01/20/25 06:15 Labs: Laboratory Results - last 24 hr 01/20/25 01/20/25 01/20/25 06:15 07:27 09:54 Hold Purple Top SEE NOTE Estim Creat Clear Calc 227.8 Estimated GFR > 60 POC Glucose 205 H Random Vancomycin 13.3 L 01/20/25 01/20/25 01/20/25 11:08 16:16 20:32 Hold Purple Top Estim Creat Clear Calc Estimated GFR POC Glucose 189 H 208 H 238 H Random Vancomycin Procedures Date of Service Date of Service: 01/20/25 Progress Note: A&P Assessment and plan (1) Ulcer of left second toe: Status: Acute Plan 44-year-old male with diabetic foot left 2nd toe wound 1st of all need to be very aggressive with his glucose control is his hemoglobin A1c is very elevated 11.5. Continue with IV antibiotics as above and we will do just daily dressing changes of saline wet-to-dry while he is here in the hospital and can convert to alginate as an outpatient with follow up in the [facility]. Patient understands and agrees with the above plan Time Spent With Patient Time: Total time managing care of this patient today ____ minutes. Quality Stroke Does the patient have a stroke diagnosis?: No VTE Prior VTE?: No VTE Risk Level:: Medical - moderate - high VTE Device Contraindication: Treatment Not Indicated VTE Drug Contraindication: N/A - Med Ordered
[2025-01-21 03:25] VITALS: BP 129/64; PULSE 78; RESP 16; TEMP 36.1; O2SAT 98
[2025-01-21 07:09] VITALS: BP 136/79; PULSE 87; RESP 16; TEMP 36.1; O2SAT 97
[2025-01-21 07:17] LABS: Glucose, Whole Blood 212 mg/dL (60-115)
[2025-01-21 07:33] LABS: Creatinine Clr Calc Pharmacy 211.3; Estimated Glomerular Filt Rate > 60
--- NOTE | 2025-01-21 07:41 | P.PNIM_ITS ---
Subjective Subjective Date of Service: 01/21/25 Interval History: Left 2nd toe ulcer secondary to suboptimally controlled type 2 DM currently improving Patient does not have any current issues Wishes to know when he would get discharged-explained to him that we need to get insurance and outpatient management settled up before he can be discharged Physical Exam 2 Exam: Exam: General: AOx3, morbid obesity Resp: CTA bilaterally CVS: S1, S2, RRR GI: +BS, NT, no distention Neuro: Cranial nerves II-XII grossly intact bilaterally. Motor grossly intact bilaterally Extremities: L 2nd toe cellulituis Psych: Appropriate affect Vital Signs: Vital Signs: Last Vital Signs Temp 96.9 F 01/21/25 07:09 Pulse 87 01/21/25 07:09 Resp 16 01/21/25 07:09 BP 136/79 01/21/25 07:09 Pulse Ox 97 01/21/25 07:09 O2 Del Method Room Air 01/21/25 07:09 BMI result Body Mass Index 43.3 Objective Data Active Medications Acetaminophen (Acetaminophen 325 Mg Tablet) 975 mg PO Q6H PRN PRN Reason: Pain, Mild 1-3,fever,headache Calcium Carbonate (Calcium Carbonate 750 Mg Tab.Chew) 750 mg PO Q4H PRN PRN Reason: Heartburn Dextrose (Dextrose 50 % 25 Gm/50 Ml Syringe) 25 gm IVPUSH Q15M PRN; Protocol PRN Reason: per Hypoglycemia Standing Ord. Enoxaparin Sodium (Enoxaparin Sodium 40 Mg/0.4 Ml Syringe) 40 mg SUBCUT Q24H [facility] Last Admin: 01/20/25 08:02 Dose: 40 mg Documented By: KIRSTIE Glipizide (Glipizide 5 Mg Tablet) 5 mg PO BIDWM [facility] Last Admin: 01/20/25 17:05 Dose: 5 mg Documented By: KIRSTIE Glucose (Glucose Gel 15 Gm Gel..Gram.) 15 gm PO Q15M PRN; Protocol PRN Reason: per Hypoglycemia Standing Ord. Piperacillin Sod/Tazobactam (Sod 3.375 gm/ Sodium Chloride) 50 mls @ 100 mls/hr IV Q6H [facility] Last Infusion: 01/21/25 05:55 Dose: Infused Documented By: IVONE Vancomycin HCl 1,250 mg/ (Sodium Chloride) 250 mls @ 166.667 mls/hr IV Q8H [facility] Last Infusion: 01/21/25 05:06 Dose: Infused Documented By: IVONE Insulin Glargine (Insulin Glargine,Hum.Rec.Anlog 100 Unit/Ml 10 Ml Vial) 25 unit SUBCUT DAILY [facility] Last Admin: 01/20/25 08:02 Dose: 25 unit Documented By: KIRSTIE Insulin Human Lispro (Insulin Lispro 100 Unit/Ml 3 Ml Vial) 0 unit SUBCUT QIDACHS [facility]; Protocol Last Admin: 01/20/25 20:47 Dose: 4 unit Documented By: IVONE Magnesium Hydroxide (Milk Of Magnesia 30 Ml Oral.Susp) 30 ml PO DAILY PRN PRN Reason: Constipation Melatonin (Melatonin 3 Mg Tablet) 6 mg PO BEDTIME PRN PRN Reason: Insomnia Pharmacy Consult (Consult Rx Vancomycin Dosing) 1 each MISCELLANE DAILY PRN PRN Reason: Consult order Sodium Chloride (0.9 % Sodium Chloride Flush 3 Ml Syringe) 3 ml IVFLUSH QSHIFT [facility] Last Admin: 01/20/25 23:54 Dose: 3 ml Documented By: IVONE Labs 01/17/25 07:29 01/21/25 06:41 Labs: Laboratory Results - last 24 hr 01/20/25 01/20/25 01/20/25 09:54 11:08 16:16 Hold Purple Top Estim Creat Clear Calc Estimated GFR POC Glucose 189 H 208 H Random Vancomycin 13.3 L 01/20/25 01/21/25 01/21/25 20:32 06:29 06:41 Hold Purple Top Cancelled SEE NOTE Estim Creat Clear Calc 211.3 Estimated GFR > 60 POC Glucose 238 H Random Vancomycin 01/21/25 07:13 Hold Purple Top Estim Creat Clear Calc Estimated GFR POC Glucose 212 H Random Vancomycin Assessment and Plan (1) Osteophyte, left foot: Status: Acute Assessment and Plan: Pt is a 44-year-old male with a PMH significant for diabetes type 2 currently not on home medication due to insurance who presented to the ED with left foot swelling and wound on 2nd foot. Pt was admitted to the hospital for left lower extremity cellulitis with concerns for early osteomyelitis. Currently improving, we will need to have PCP, Wound Care prior to discharge Left foot cellulitis and ulceration with sepsis and concerns for early osteomyelitis secondary to skin comments all staph or strep-currently improving on broad-spectrum antibiotics Initially met sepsis criteria with leukocytosis and tachycardia; no severe features MRI showing possible early osteomyelitis of 2nd toe Continue vanc and Zosyn, day 6 Infectious disease following, recommended IV antibiotics x6 weeks upon d/c, ?dapto General surgery consulted, no debridement currently necessary Wound care consulted, recommend: Left Toe- Elevate foot with pillows. Limit prolonged walking and standing. Cleanse with NS moist gauze, Pat dry.? Apply barrier to periwound, apply Durafiber AG to wound bed, cover with dry gauze, ABd pad and wrap.? Change Daily while inpatient and Change every other day at time of d/c. Recommend follow up out patient Wound Clinic at [address] [place] [id number] and to call for an appointment at time of discharge. [phone].? Gram-positive MSSA bacteremia ?likely contaminant-pansensitive 1/2 BCx positive for MSSA pansensitive Treat with vanc and Zosyn as above Uncontrolled diabetes type 2, A1C -11.6 Has not been taking any home medication due to insurance issues POCs getting better, though still often >200 Continue SSI, Lantus 25 units daily, Glipizide 5mg bidwm Diabetic diet, diabetic counseling, supplies needs to be adjusted Hyperlipidemia Triglycerides 323, cholesterol 214, LDL 117, HDL 33 Needs to establish with PCP for followup and monitoring Pt needs continued hospitalization due to need for continued IV antibiotics while awaiting culture sensitivities and PICC line for prolonged IV antibiotics. Case management and wound care to be coordinated prior to DC Quality Stroke Does the patient have a stroke diagnosis?: No VTE Prior VTE?: No VTE Risk Level:: Medical - moderate - high VTE Device Contraindication: Treatment Not Indicated VTE Drug Contraindication: N/A - Med Ordered
[2025-01-21] MEDS: Insulin Glargine,Hum.rec.anlog 100 UNIT/ML 10 ML VIAL 25 UNIT SUBCUT (07:53)
[2025-01-21] MEDS: 0.9 % Sodium Chloride Flush 3 ML SYRINGE IVFLUSH ×3 (07:56→20:41)
--- NOTE | 2025-01-21 10:36 | P.PNGS_ITS ---
Subjective Subjective Date of Service: 01/24/25 Interval history: Patient feeling good no new issues. Physical Exam 2 Vital Signs: Vital Signs: Last Vital Signs Temp 96.9 F 01/21/25 07:09 Pulse 87 01/21/25 07:09 Resp 16 01/21/25 07:09 BP 136/79 01/21/25 07:09 Pulse Ox 97 01/21/25 07:09 O2 Del Method Room Air 01/21/25 07:09 BMI result Body Mass Index 43.3 Skin: Other: Dressings are intact. Objective Data Active Medications Acetaminophen (Acetaminophen 325 Mg Tablet) 975 mg PO Q6H PRN PRN Reason: Pain, Mild 1-3,fever,headache Calcium Carbonate (Calcium Carbonate 750 Mg Tab.Chew) 750 mg PO Q4H PRN PRN Reason: Heartburn Dextrose (Dextrose 50 % 25 Gm/50 Ml Syringe) 25 gm IVPUSH Q15M PRN; Protocol PRN Reason: per Hypoglycemia Standing Ord. Enoxaparin Sodium (Enoxaparin Sodium 40 Mg/0.4 Ml Syringe) 40 mg SUBCUT Q24H [facility] Last Admin: 01/21/25 07:54 Dose: 40 mg Documented By: ANANT Glipizide (Glipizide 5 Mg Tablet) 5 mg PO BIDWM [facility] Last Admin: 01/21/25 07:54 Dose: 5 mg Documented By: ANANT Glucose (Glucose Gel 15 Gm Gel..Gram.) 15 gm PO Q15M PRN; Protocol PRN Reason: per Hypoglycemia Standing Ord. Piperacillin Sod/Tazobactam (Sod 3.375 gm/ Sodium Chloride) 50 mls @ 100 mls/hr IV Q6H [facility] Last Infusion: 01/21/25 05:55 Dose: Infused Documented By: IVONE Vancomycin HCl 1,250 mg/ (Sodium Chloride) 250 mls @ 166.667 mls/hr IV Q8H [facility] Last Infusion: 01/21/25 05:06 Dose: Infused Documented By: IVONE Insulin Glargine (Insulin Glargine,Hum.Rec.Anlog 100 Unit/Ml 10 Ml Vial) 25 unit SUBCUT DAILY [facility] Last Admin: 01/21/25 07:53 Dose: 25 unit Documented By: ANANT Insulin Human Lispro (Insulin Lispro 100 Unit/Ml 3 Ml Vial) 0 unit SUBCUT QIDACHS [facility]; Protocol Last Admin: 01/21/25 07:53 Dose: 4 unit Documented By: ANANT Magnesium Hydroxide (Milk Of Magnesia 30 Ml Oral.Susp) 30 ml PO DAILY PRN PRN Reason: Constipation Melatonin (Melatonin 3 Mg Tablet) 6 mg PO BEDTIME PRN PRN Reason: Insomnia Pharmacy Consult (Consult Rx Vancomycin Dosing) 1 each MISCELLANE DAILY PRN PRN Reason: Consult order Sodium Chloride (0.9 % Sodium Chloride Flush 3 Ml Syringe) 3 ml IVFLUSH [facility] Last Admin: 01/21/25 07:56 Dose: 3 ml Documented By: ANANT Labs 01/24/25 05:51 01/24/25 05:51 Labs: Laboratory Results - last 24 hr 01/20/25 01/20/25 01/20/25 11:08 16:16 20:32 Hold Purple Top Estim Creat Clear Calc Estimated GFR POC Glucose 189 H 208 H 238 H Random Vancomycin 01/21/25 01/21/25 01/21/25 06:29 06:41 07:13 Hold Purple Top Cancelled SEE NOTE Estim Creat Clear Calc 211.3 Estimated GFR > 60 POC Glucose 212 H Random Vancomycin 01/21/25 10:00 Hold Purple Top Estim Creat Clear Calc Estimated GFR POC Glucose Random Vancomycin 12.7 L Procedures Date of Service Date of Service: 01/24/25 Progress Note: A&P Assessment and plan (1) Diabetes: Status: Acute (2) Ulcer of left second toe: Status: Acute Assessment and Plan: 44 year old male with diabetic foot wound on toe - cont with dressing and iv antibiotics. Time Spent With Patient Time: Total time managing care of this patient today ____ minutes. Quality Stroke Does the patient have a stroke diagnosis?: No VTE Prior VTE?: No VTE Risk Level:: Medical - moderate - high VTE Device Contraindication: Treatment Not Indicated VTE Drug Contraindication: N/A - Med Ordered
[2025-01-21 11:34] LABS: Glucose, Whole Blood 172 mg/dL (60-115)
[2025-01-21 15:30] VITALS: BP 130/79; PULSE 89; RESP 18; TEMP 36.3; O2SAT 98
[2025-01-21 16:12] LABS: Glucose, Whole Blood 158 mg/dL (60-115)
[2025-01-21 20:00] VITALS: BP 135/87; PULSE 95; RESP 18; TEMP 36.1; O2SAT 96
[2025-01-21 20:22] LABS: Glucose, Whole Blood 220 mg/dL (60-115)
--- NOTE | 2025-01-22 00:43 | PM.EVENT ---
Event Note Date of Service: 01/22/25 Event Note: MSSA bacteremia even though 1/2 in setting of probable OM never contaminant Needs six weeks Kefzol preferably,did stop Zosyn and Vancomycin Needs TTE as well. Time Spent With Patient Time: Total time managing care of this patient today ____ minutes.
[2025-01-22 03:17] VITALS: BP 132/75; PULSE 86; RESP 18; TEMP 37.4; O2SAT 99
[2025-01-22 06:23] LABS: MANUAL DIFF FLAG NO
[2025-01-22 06:37] LABS: Hematocrit 35.9 % (42.0-52.0); Hemoglobin 12.1 g/dl (14.0-18.0); Imm Gran Abs Auto 0.04 X10*3/uL (0.00-0.03); Imm Gran Pct Auto 0.6 % (0.0-0.4); Lymphocytes Absolute Auto 1.2 X10*3/uL (1.2-4.9); Mean Corpuscular HGB Conc 33.7 g/dl (31.0-36.0); Mean Corpuscular Hemoglobin 27.1 pg (27.0-33.0); Mean Corpuscular Volume 80.3 fL (80.0-98.0); NRBC Abs Auto 0.000 X10*3/uL (0.0-0.012); NRBC Pct Auto 0.0 /100WBC (0.0-0.2); Platelet Count 200 X10*3/uL (160-400); Red Blood Count 4.47 X10*6/uL (4.60-5.80); White Blood Count 6.4 X10*3/uL (4.8-10.8)
[2025-01-22 07:06] LABS: Alanine Aminotransferase 38 U/L (0-40); Albumin Level 3.6 g/dL (3.5-5.0); Alkaline Phosphatase 72 U/L (39-117); Anion Gap 12 (12-20); Aspartate Amino Transferase 24 U/L (5-37); Blood Urea Nitrogen 12 mg/dL (9-16); Calcium 9.0 mg/dL (8.4-10.2); Carbon Dioxide 24 mmol/L (22-29); Chloride 108 mmol/L (96-108); Creatinine Clr Calc Pharmacy 197.0; Estimated Glomerular Filt Rate > 60; Potassium 3.9 mmol/L (3.3-5.1); Sodium 140 mmol/L (135-145); Total Protein 6.5 g/dL (6.5-8.0)
[2025-01-22 07:16] VITALS: BP 163/81; PULSE 89; RESP 16; TEMP 36.1; O2SAT 97
[2025-01-22 07:20] LABS: Glucose, Whole Blood 182 mg/dL (60-115)
[2025-01-22] MEDS: Insulin Glargine,Hum.rec.anlog 100 UNIT/ML 10 ML VIAL 25 UNIT SUBCUT (07:49)
[2025-01-22] MEDS: 0.9 % Sodium Chloride Flush 3 ML SYRINGE IVFLUSH ×3 (07:56→21:06)
--- NOTE | 2025-01-22 08:47 | P.PNIM_ITS ---
Subjective Subjective Date of Service: 01/22/25 Interval History: Patient has been deemed to have MSSA bacteremia, hence Zosyn and vanc have been stopped and Kefzol has been initiated He is getting TTE and if negative we will likely switch him to have 6 weeks of Kefzol Review of Systems Review of Systems: Yes all other systems are reviewed and are negative Physical Exam 2 Exam: Exam: General: AOx3, morbid obesity Resp: CTA bilaterally CVS: S1, S2, RRR GI: +BS, NT, no distention Neuro: Cranial nerves II-XII grossly intact bilaterally. Motor grossly intact bilaterally Extremities: L 2nd toe cellulituis Psych: Appropriate affect Vital Signs: Vital Signs: Last Vital Signs Temp 97.0 F 01/22/25 07:16 Pulse 89 01/22/25 07:16 Resp 16 01/22/25 07:16 BP 163/81 H 01/22/25 07:16 Pulse Ox 97 01/22/25 07:16 O2 Del Method Room Air 01/22/25 07:16 BMI result Body Mass Index 43.3 Objective Data Active Medications Acetaminophen (Acetaminophen 325 Mg Tablet) 975 mg PO Q6H PRN PRN Reason: Pain, Mild 1-3,fever,headache Calcium Carbonate (Calcium Carbonate 750 Mg Tab.Chew) 750 mg PO Q4H PRN PRN Reason: Heartburn Dextrose (Dextrose 50 % 25 Gm/50 Ml Syringe) 25 gm IVPUSH Q15M PRN; Protocol PRN Reason: per Hypoglycemia Standing Ord. Enoxaparin Sodium (Enoxaparin Sodium 40 Mg/0.4 Ml Syringe) 40 mg SUBCUT Q24H [facility] Last Admin: 01/22/25 07:49 Dose: 40 mg Documented By: ANANT Glipizide (Glipizide 5 Mg Tablet) 5 mg PO BIDWM [facility] Last Admin: 01/22/25 07:49 Dose: 5 mg Documented By: ANANT Glucose (Glucose Gel 15 Gm Gel..Gram.) 15 gm PO Q15M PRN; Protocol PRN Reason: per Hypoglycemia Standing Ord. Cefazolin Sodium/Dextrose (Ancef) 2 gm in 50 mls @ 100 mls/hr IV Q8H [facility] Last Infusion: 01/22/25 08:24 Dose: Infused Documented By: ANANT Insulin Glargine (Insulin Glargine,Hum.Rec.Anlog 100 Unit/Ml 10 Ml Vial) 25 unit SUBCUT DAILY [facility] Last Admin: 01/22/25 07:49 Dose: 25 unit Documented By: ANANT Insulin Human Lispro (Insulin Lispro 100 Unit/Ml 3 Ml Vial) 0 unit SUBCUT QIDACHS [facility]; Protocol Last Admin: 01/22/25 07:48 Dose: 2 unit Documented By: ANANT Magnesium Hydroxide (Milk Of Magnesia 30 Ml Oral.Susp) 30 ml PO DAILY PRN PRN Reason: Constipation Melatonin (Melatonin 3 Mg Tablet) 6 mg PO BEDTIME PRN PRN Reason: Insomnia Sodium Chloride (0.9 % Sodium Chloride Flush 3 Ml Syringe) 3 ml IVFLUSH QSHIFT [facility] Last Admin: 01/22/25 07:56 Dose: 3 ml Documented By: ANANT Labs 01/22/25 06:00 01/22/25 06:00 Labs: Laboratory Results - last 24 hr 01/21/25 01/21/25 01/21/25 10:00 11:29 16:04 MCV MCH MCHC RDW Plt Count MPV Immature Gran % (Auto) Neut % (Auto) Lymph % (Auto) Harper % (Auto) Eos % (Auto) Baso % (Auto) Lymph # (Auto) Harper # (Auto) Eos # (Auto) Baso # (Auto) Abs Immat Gran (auto) Absolute Neuts (auto) Absolute Nucleated RBC Nucleated RBC % (auto) Anion Gap Estim Creat Clear Calc Estimated GFR POC Glucose 172 H 158 H Random Glucose Calcium Total Bilirubin AST ALT Alkaline Phosphatase Total Protein Albumin Random Vancomycin 12.7 L 01/21/25 01/22/25 01/22/25 20:18 06:00 07:16 MCV 80.3 MCH 27.1 MCHC 33.7 RDW 13.8 Plt Count 200 MPV 9.9 Immature Gran % (Auto) 0.6 H Neut % (Auto) 73.9 H Lymph % (Auto) 18.0 L Harper % (Auto) 5.6 Eos % (Auto) 1.4 Baso % (Auto) 0.5 Lymph # (Auto) 1.2 Harper # (Auto) 0.4 Eos # (Auto) 0.1 Baso # (Auto) 0.0 Abs Immat Gran (auto) 0.04 H Absolute Neuts (auto) 4.7 Absolute Nucleated RBC 0.000 Nucleated RBC % (auto) 0.0 Anion Gap 12 Estim Creat Clear Calc 197.0 Estimated GFR > 60 POC Glucose 220 H 182 H Random Glucose 172 H Calcium 9.0 Total Bilirubin 0.4 AST 24 ALT 38 Alkaline Phosphatase 72 Total Protein 6.5 Albumin 3.6 Random Vancomycin Microbiology Microbiology Results: Microbiology 01/16/25 12:25 Blood Culture - Final Blood - Venous No growth after 5 days. 01/20/25 11:43 Blood Culture - Preliminary Blood - Venous No growth after 24 hours. 01/20/25 11:43 Blood Culture - Preliminary Blood - Venous No growth after 24 hours. Assessment and Plan (1) Osteophyte, left foot: Status: Acute Assessment and Plan: Pt is a 44-year-old male with a PMH significant for diabetes type 2 currently not on home medication due to insurance who presented to the ED with left foot swelling and wound on 2nd foot. Pt was admitted to the hospital for left lower extremity cellulitis with concerns for early osteomyelitis. Currently improving, we will need to have PCP, Wound Care prior to discharge Left foot cellulitis and ulceration with sepsis and concerns for early osteomyelitis secondary to skin comments all staph or strep-currently improving on broad-spectrum antibiotics Pansensitive MSSA bacteremia MRI showing possible early osteomyelitis of 2nd toe Blood culture 1/2 bottles was positive for MSSA bacteremia Initially was treated with broad-spectrum antibiotics on vancomycin and Zosyn and is currently being switched to cefazolin 2 g t.i.d. TTE ordered Will likely be DC on PICC line with Cefazolin to complete 6 weeks of abx Will reorder BCX 2 to look for resolution of bacteremia Wound care consulted, recommend: Left Toe- Elevate foot with pillows. Limit prolonged walking and standing. Cleanse with NS moist gauze, Pat dry.? Apply barrier to periwound, apply Durafiber AG to wound bed, cover with dry gauze, ABd pad and wrap.? Change Daily while inpatient and Change every other day at time of d/c. Recommend follow up out patient Wound Clinic at [address] [place] [phone] and to call for an appointment at time of discharge. [phone].? Uncontrolled diabetes type 2, A1C -11.6 Has without home medication due to insurance issues POC euglycemic with current regimen Continue SSI, Lantus 25 units daily, Glipizide 5mg bidwm Diabetic diet, diabetic counseling, supplies needs to be adjusted Hyperlipidemia Triglycerides 323, cholesterol 214, LDL 117, HDL 33 Initiated him on statins 20 mg Needs to establish with PCP for followup and monitoring DVT prophylaxis with Lovenox Quality Stroke Does the patient have a stroke diagnosis?: No VTE Prior VTE?: No VTE Risk Level:: Medical - moderate - high VTE Device Contraindication: Treatment Not Indicated VTE Drug Contraindication: N/A - Med Ordered
[2025-01-22 11:12] LABS: Glucose, Whole Blood 158 mg/dL (60-115)
--- NOTE | 2025-01-22 12:00 | CA_ITS ---
Transthoracic Echocardiogram Patient (Last, First, Middle): Florentin Philippe A Gender: Male Date of : 1980 Age: 44 Procedure Date: 01/22/2025 Procedure Type: Transthoracic Echocardiogram Location: S3E Height: 187.96 cm Weight: 152.86 kg BSA: 2.71 m2 Heart Rate: bpm BP: 163 / 81 mmHg Release Coordinator: Referring MD: Nely Wilson MD Symptoms: mssa BACTEREMIA Study Quality: Technically Difficult due to body habitus ECG Rhythm: Sinus Conclusions: - Normal left ventricular size and systolic function. There is mildly increased left ventricular wall thickness. The visually estimated ejection fraction is between 55-60%. - E/E prime ratio is between 8 and 15 consistent with indeterminate filling pressures. - Normal right ventricular cavity size and systolic function. - The aortic valve was not well visualized. Findings Left Ventricle Normal left ventricular size and systolic function. There is mildly increased left ventricular wall thickness. The visually estimated ejection fraction is between 55-60%. Abnormal diastolic function is noted. Spectral Doppler is indicative of a pseudonormal filling pattern. E/E prime ratio is between 8 and 15 consistent with indeterminate filling pressures. Right Ventricle Normal right ventricular cavity size and systolic function. Atria The left atrium is mildly dilated. The right atrium is normal in size. Aortic Valve The aortic valve was not well visualized. There is no aortic valve stenosis. There is no aortic valve regurgitation. Mitral Valve Likely normal mitral valve structure and function. There is no mitral valve regurgitation. There is no mitral valve stenosis. Pulmonic Valve The pulmonic valve was not well visualized. Tricuspid Valve Likely normal tricuspid valve structure and function. There is no tricuspid valve regurgitation. The right ventricular systolic pressure is 31 mmHg. Significantly elevated right atrial pressure. There is no evidence of pulmonary hypertension. Great Vessels There is mild dilatation of the ascending aorta measuring 3.70 cm. Venous The inferior vena cava is dilated and does not collapse with inspiration. Pericardium/Pleural There is no evidence of pericardial effusion. Prior Study Comparison No prior study available for comparison. Recommendations, Care & Conclusions Consider a TRUPTI if clinically appropriate. Measurements 2D Linear Measurements IVSd: 1.21 0.6-0.9/0.6-1.0 cm LVIDd: 4.09 3.9-5.3/4.2-5.9 cm LVIDd Index: 1.51 2.4-3.2/2.2-3.1 cm/m2 LVIDs: 2.73 2.0-3.6 cm LVPWd: 1.24 0.7-1.1 cm Ao Root: 3.60 2.1-3.5 cm LA Diam: 4.60 2.7-3.8/3.0-4.0 cm LAIDs Index: 1.70 1.5-2.3 cm/m2 LV Mass: 219.76 67-162/88-224 g LV Mass Index: 81.09 43-95/49-115 g/m2 LVOT Diam: 2.60 3.0+(-)1.3 cm Mitral Valve MV Pk E: 0.80 MV PK A: 0.77 MV Decel Time: 124.00 E/A: 1.00 E'Lateral: 6.74 E'Medial: 5.00 E/E' Med: 15.90 E/E' Lat: 11.80 PHT: 36.00 MVA PHT: 6.11 Decel Charlotte: 6.42 Aortic Valve AoV Pk Damon: 0.95 AoV Mn Damon: 0.63 AoV VTI: 0.18 AoV Pk Grad: 4.00 Aov Mn Grad: 2.00 JIM Cont.VTI: 4.22 LVOT LVOT Pk Damon: 0.69 LVOT Mn Damon: 0.45 LVOT VTI: 0.14 LVOT Pk Grad: 2.00 LVOT Mn Grad: 1.00 LVOT Diam: 2.60 LVOT Area: 5.31 Diastolic Function MV Pk E: 0.80 MV Pk A: 0.77 E/A: 1.00 E'Medial: 5.00 E/E' Med: 15.90 E' Laterial: 6.74 E/E' Lat: 11.80 Right Ventricle TAPSE (mm): 30.00 TVS' Damon: 16.00 Tricuspid Valve TR Pk Damon: 2.41 TR Pk Grad: 23.00 RA Press: 8.00 RVSP: 31.00 Great Vessels Aorta Ao Root-2D: 3.60 2.0-3.7 cm Ao Asc: 3.70 2.1-3.4 cm Pulmonary Valve PV Pk Damon: 1.12 Peak PV Grad: 5.00 Updated in Other Vendor System with Status of Final Jaswinder Miles MD electronically signed on 01/22/2025 8:08:10 PM with status of Final
[2025-01-22 15:03] VITALS: BP 138/79; PULSE 87; RESP 16; TEMP 36.4; O2SAT 99
[2025-01-22 16:09] LABS: Glucose, Whole Blood 147 mg/dL (60-115)
[2025-01-22 19:30] VITALS: BP 140/73; PULSE 90; RESP 18; TEMP 37.2; O2SAT 96
[2025-01-22 20:13] LABS: Glucose, Whole Blood 184 mg/dL (60-115)
[2025-01-23 03:06] VITALS: BP 117/59; PULSE 84; RESP 18; TEMP 36.8; O2SAT 98
[2025-01-23 05:56] LABS: MANUAL DIFF FLAG NO
[2025-01-23 06:01] LABS: Hematocrit 34.6 % (42.0-52.0); Hemoglobin 11.5 g/dl (14.0-18.0); Imm Gran Abs Auto 0.03 X10*3/uL (0.00-0.03); Imm Gran Pct Auto 0.4 % (0.0-0.4); Lymphocytes Absolute Auto 1.4 X10*3/uL (1.2-4.9); Mean Corpuscular HGB Conc 33.2 g/dl (31.0-36.0); Mean Corpuscular Hemoglobin 26.9 pg (27.0-33.0); Mean Corpuscular Volume 81.0 fL (80.0-98.0); NRBC Abs Auto 0.000 X10*3/uL (0.0-0.012); NRBC Pct Auto 0.0 /100WBC (0.0-0.2); Platelet Count 200 X10*3/uL (160-400); Red Blood Count 4.27 X10*6/uL (4.60-5.80); White Blood Count 7.2 X10*3/uL (4.8-10.8)
[2025-01-23 06:16] LABS: Alanine Aminotransferase 35 U/L (0-40); Albumin Level 3.8 g/dL (3.5-5.0); Alkaline Phosphatase 72 U/L (39-117); Anion Gap 12 (12-20); Aspartate Amino Transferase 22 U/L (5-37); Blood Urea Nitrogen 13 mg/dL (9-16); Calcium 9.3 mg/dL (8.4-10.2); Carbon Dioxide 27 mmol/L (22-29); Chloride 107 mmol/L (96-108); Creatinine Clr Calc Pharmacy 160.2; Estimated Glomerular Filt Rate > 60; Potassium 4.2 mmol/L (3.3-5.1); Sodium 142 mmol/L (135-145); Total Protein 6.7 g/dL (6.5-8.0)
[2025-01-23 07:01] VITALS: BP 140/73; PULSE 87; RESP 16; TEMP 36.7; O2SAT 97
[2025-01-23 07:28] LABS: Glucose, Whole Blood 168 mg/dL (60-115)
[2025-01-23] MEDS: Insulin Glargine,Hum.rec.anlog 100 UNIT/ML 10 ML VIAL 25 UNIT SUBCUT (07:42)
[2025-01-23] MEDS: 0.9 % Sodium Chloride Flush 3 ML SYRINGE IVFLUSH ×3 (07:43→23:53)
--- NOTE | 2025-01-23 08:11 | P.PNIM_ITS ---
Subjective Subjective Date of Service: 01/23/25 Interval History: Nonbacteremic thus far Wound looks clinically better If -ve BC prelim until tomorrow, will likely get a PICC line and be started on IV 6 weeks abx Review of Systems Review of Systems: Yes all other systems are reviewed and are negative Physical Exam 2 Exam: Exam: General: AOx3, morbid obesity Resp: CTA bilaterally CVS: S1, S2, RRR GI: +BS, NT, no distention Extremities: L 2nd toe cellulituis bandaged Vital Signs: Vital Signs: Last Vital Signs Temp 98.1 F 01/23/25 07:01 Pulse 87 01/23/25 07:01 Resp 16 01/23/25 07:01 BP 140/73 H 01/23/25 07:01 Pulse Ox 97 01/23/25 07:01 O2 Del Method Room Air 01/23/25 07:01 BMI result Body Mass Index 43.3 Objective Data Active Medications Acetaminophen (Acetaminophen 325 Mg Tablet) 975 mg PO Q6H PRN PRN Reason: Pain, Mild 1-3,fever,headache Atorvastatin Calcium (Atorvastatin Calcium 20 Mg Tablet) 20 mg PO DAILY [facility] Last Admin: 01/23/25 07:42 Dose: 20 mg Documented By: STACY Calcium Carbonate (Calcium Carbonate 750 Mg Tab.Chew) 750 mg PO Q4H PRN PRN Reason: Heartburn Dextrose (Dextrose 50 % 25 Gm/50 Ml Syringe) 25 gm IVPUSH Q15M PRN; Protocol PRN Reason: per Hypoglycemia Standing Ord. Enoxaparin Sodium (Enoxaparin Sodium 40 Mg/0.4 Ml Syringe) 40 mg SUBCUT Q24H [facility] Last Admin: 01/23/25 07:44 Dose: 40 mg Documented By: STACY Glipizide (Glipizide 5 Mg Tablet) 5 mg PO BIDWM [facility] Last Admin: 01/23/25 07:42 Dose: 5 mg Documented By: STACY Glucose (Glucose Gel 15 Gm Gel..Gram.) 15 gm PO Q15M PRN; Protocol PRN Reason: per Hypoglycemia Standing Ord. Cefazolin Sodium/Dextrose (Ancef) 2 gm in 50 mls @ 100 mls/hr IV Q8H [facility] Last Admin: 01/23/25 07:44 Dose: 100 mls/hr Documented By: STACY Insulin Glargine (Insulin Glargine,Hum.Rec.Anlog 100 Unit/Ml 10 Ml Vial) 25 unit SUBCUT DAILY [facility] Last Admin: 01/23/25 07:42 Dose: 25 unit Documented By: STACY Insulin Human Lispro (Insulin Lispro 100 Unit/Ml 3 Ml Vial) 0 unit SUBCUT QIDACHS [facility]; Protocol Last Admin: 01/23/25 07:43 Dose: 2 unit Documented By: STACY Magnesium Hydroxide (Milk Of Magnesia 30 Ml Oral.Susp) 30 ml PO DAILY PRN PRN Reason: Constipation Melatonin (Melatonin 3 Mg Tablet) 6 mg PO BEDTIME PRN PRN Reason: Insomnia Sodium Chloride (0.9 % Sodium Chloride Flush 3 Ml Syringe) 3 ml IVFLUSH QSHIFT [facility] Last Admin: 01/23/25 07:43 Dose: 3 ml Documented By: STACY Labs 01/23/25 05:41 01/23/25 05:41 Labs: Laboratory Results - last 24 hr 01/22/25 01/22/25 01/22/25 11:09 16:03 17:38 MCV MCH MCHC RDW Plt Count MPV Immature Gran % (Auto) Neut % (Auto) Lymph % (Auto) [place] % (Auto) Eos % (Auto) Baso % (Auto) Lymph # (Auto) [place] # (Auto) Eos # (Auto) Baso # (Auto) Abs Immat Gran (auto) Absolute Neuts (auto) Absolute Nucleated RBC Nucleated RBC % (auto) Hold Purple Top SEE NOTE Anion Gap Estim Creat Clear Calc Estimated GFR POC Glucose 158 H 147 H Random Glucose Calcium Total Bilirubin AST ALT Alkaline Phosphatase Total Protein Albumin 01/22/25 01/23/25 01/23/25 20:02 05:41 07:03 MCV 81.0 MCH 26.9 L MCHC 33.2 RDW 13.9 Plt Count 200 MPV 9.6 Immature Gran % (Auto) 0.4 Neut % (Auto) 71.2 Lymph % (Auto) 19.2 L [place] % (Auto) 7.1 Eos % (Auto) 1.7 Baso % (Auto) 0.4 Lymph # (Auto) 1.4 [place] # (Auto) 0.5 Eos # (Auto) 0.1 Baso # (Auto) 0.0 Abs Immat Gran (auto) 0.03 Absolute Neuts (auto) 5.1 Absolute Nucleated RBC 0.000 Nucleated RBC % (auto) 0.0 Hold Purple Top Anion Gap 12 Estim Creat Clear Calc 160.2 Estimated GFR > 60 POC Glucose 184 H 168 H Random Glucose 166 H Calcium 9.3 Total Bilirubin 0.5 AST 22 ALT 35 Alkaline Phosphatase 72 Total Protein 6.7 Albumin 3.8 Microbiology Microbiology Results: Microbiology 01/20/25 11:43 Blood Culture - Preliminary Blood - Venous No growth after 48 hours. 01/20/25 11:43 Blood Culture - Preliminary Blood - Venous No growth after 48 hours. Assessment and Plan (1) Osteophyte, left foot: Status: Acute Assessment and Plan: Pt is a 44-year-old male with a PMH significant for diabetes type 2 currently not on home medication due to insurance who presented to the ED with left foot swelling and wound on 2nd foot. Pt was admitted to the hospital for left lower extremity cellulitis with concerns for early osteomyelitis. Currently improving, we will need to have PCP, Wound Care prior to discharge Left foot cellulitis and ulceration with sepsis and concerns for early osteomyelitis secondary to skin comments all staph or strep-currently improving on broad-spectrum antibiotics Pansensitive MSSA bacteremia MRI showing possible early osteomyelitis of 2nd toe Blood culture 1/2 bottles was positive for MSSA bacteremia Initially was treated with broad-spectrum antibiotics is currently on cefazolin 2 g t.i.d. TTE ordered -ve for vegetation Will likely be DC on PICC line with Cefazolin to complete 6 weeks of abx Wound care consulted, recommend: Left Toe- Elevate foot with pillows. Limit prolonged walking and standing. Cleanse with NS moist gauze, Pat dry.? Apply barrier to periwound, apply Durafiber AG to wound bed, cover with dry gauze, ABd pad and wrap.? Change Daily while inpatient and Change every other day at time of d/c. Recommend follow up out patient Wound Clinic at [address] [place] [id number] and to call for an appointment at time of discharge. [phone].? Uncontrolled diabetes type 2, A1C -11.6 Has without home medication due to insurance issues POC euglycemic with current regimen Continue SSI, Lantus 25 units daily, Glipizide 5mg bidwm Diabetic diet, diabetic counseling, supplies needs to be adjusted Hyperlipidemia Initiated him on statins 20 mg Needs to establish with PCP for followup and monitoring DVT prophylaxis with Lovenox This note is constructed using voice recognition software. While every effort has been made to ensure accuracy, infantry operations specialist errors may have been included. Quality Stroke Does the patient have a stroke diagnosis?: No VTE Prior VTE?: No VTE Risk Level:: Medical - moderate - high VTE Device Contraindication: Treatment Not Indicated VTE Drug Contraindication: N/A - Med Ordered
--- NOTE | 2025-01-23 10:46 | MHC.CM.PN ---
Per MD rounds patient not medically clear for dc. Awaiting final cultures. Will need PICC, likely tomorrow. [facility] updated. CM will continue to follow.
[2025-01-23 11:09] LABS: Glucose, Whole Blood 142 mg/dL (60-115)
--- NOTE | 2025-01-23 12:51 | HO.WOUND ---
Wound Consult: Follow up 44 yr old male admitted to [facility] on 01/16/25 - See progress notes and H&P for detailed history. Wound consult placed for left foot/second toe. Patient agreeable to assessment and photo documentation. Discussed importance of blood glucose management and outpatient wound center follow up upon discharge. Patient verbalized understanding, in agreement. Patient reports overall improvement to swelling and redness in foot and toe. patient was seen by general surgery over the weekend with recommendations for wet to dry. upon assessment today there is increased moisture noted to raised tissue in wound bed, moisture to erick wound, would recommend changing to durafiber ag for moisture management, increased drainage absorption. Etiology: left second toe diabetic foot wound Measurements: 1.5cm x 1cm x 0.2cm Wound Bed: moist red raised tissue, moist yellow with central area of moist exposed tendon Drainage / Odor: small amount of serosanguineous no odor Edges: ? open attached Erick wound: ? No Induration, Fluctuance or Warmth noted, swelling and redness noted to toe, patient reports decreased since admission. Pain: none Goals of Treatment: ? moisture balance, moisture management with durafiber ag Recommendations: 1. Turn and Reposition every 2 hours and as needed for patient comfort. Use pillows or wedges to support off loading positions. 2. Off Load all bony prominences with use of pillows and heel boots if needed. Apply Preventative foams where needed. 3. Monitor for incontinence and moisture control, use barrier creams when needed for prevention and treatment. 4. Provide adequate and supplemental nutrition. 5. Order or Continue low air loss mattress. 6. When applicable maintain blood glucose levels per Providers order. Left second toe: cleanse with normal saline, pat dry, apply durafiber ag, wrap with rolled gauze, change every other day and PRN. Re-consult wound care Nurse for wound deterioration or wound changes.
--- NOTE | 2025-01-23 12:57 | MHC.CM.PN ---
Addendum entered by Clare Palafox RN 01/23/25 13:10: REFERRAL FAXED TO WOUND CLINIC Original Note: PER MD ROUNDS NOT MEDICALLY CLEARED FOR DC AT THIS TIME. WILL NEED PICC FOR 6 WKS IV CEFAZOLIN Q8. [facility] TO BEDSIDE FOR TEACH AND ORDERS. WILL NEED TO UPDATE ORDERS W/ END DATE ONCE AVAILABLE. [facility] WILL ALSO PROVIDE SN, PATIENT DOES NOT HAVE PCP. CM DISCUSSED W/ PATIENT WHO IS COMFORTABLE WITH PLAN. HE REPORTS HIS MOM CAN ASSIST W/ WOUND CARE & WILL COME TO [facility] TODAY FOR WOUND CARE TEACH. RN AWARE. DISCUSSED THE IMPORTANCE OF ESTABLISHING CARE W/ PCP AND PROVIDED [facility] PROVIDER BROCHURE. PATIENT WILL SCHEDULE AN APPT. CM WILL CONTINUE TO FOLLOW.
--- NOTE | 2025-01-23 13:26 | PC.NURSE ---
Education provided to family regarding wound care for discharge. Taught via demonstration of dressing change, Cleanse with NS, pat dry, apply durafiber and ABD pad and wrap with gauze. Mother verbalized that she is confident in her abilities to provide this specific wound care.
[2025-01-23 15:18] VITALS: BP 130/78; PULSE 90; RESP 20; TEMP 36.6; O2SAT 98
[2025-01-23 16:09] LABS: Glucose, Whole Blood 143 mg/dL (60-115)
--- NOTE | 2025-01-23 19:15 | P.CDIM_ITS ---
PROVIDER RESPONSE TEXT: To clarify, the appropriate diagnosis supported by the clinical indicators: Acute osteomyelitis: 2nd digit of left foot QUERY TEXT: PHYSICIAN'S DOCUMENTATION REQUEST Date of Query: 01/18/2025 11:31 AM EDT Patient Name: Florentin Philippe Admit Date: 01/16/2025 Dear Jermaine NIEVES, A review of the medical record indicates additional documentation may be needed. Please review below and update the documentation accordingly. Documentation on (insert date) indicates Osteomyelitis. Clinical Indicators: Based on the above, please clarify in the Progress Notes further specificity regarding the type of Osteomyelitis. Acute osteomyelitis Please include specific site with laterality and known or suspected infectious agent Acute hematogenous osteomyelitis Please include specific site with laterality and known or suspected infectious agent Subacute osteomyelitis Please include specific site with laterality and known or suspected infectious agent Chronic osteomyelitis Please include specific site with laterality and known or suspected infectious agent Chronic hemotogenous osteomyelitis Please include specific site with laterality and known or suspected infectious agent Chronic multifocal osteomyelitis Please include specific site with laterality and known or suspected infectious agent Chronic osteomyelitis with draining sinus Please include specific site with laterality and known or suspected infectious agent Vasyl's abscess Please include specific site with laterality and known or suspected infectious agent Osteomyelitis Please include specific site with laterality and known or suspected infectious agent Periostitis without osteomyelitis Please include specific site with laterality and known or suspected infectious agent Other (explain) Clinically unable to determine (explain) Thank you, Kristel Nicholson, CCS, CDIS Use of terms such as suspected, likely, concern for, or probable (associated with a specific diagnosis that is being evaluated, monitored, or treated as if it exists) are acceptable and can be coded in the inpatient setting, when documented at the time of discharge. Please use your independent medical judgment in providing your response. THIS QUERY IS PART OF THE PERMANENT MEDICAL RECORD
[2025-01-23 19:34] VITALS: BP 136/77; PULSE 95; RESP 18; TEMP 36.2; O2SAT 98
[2025-01-23 19:50] LABS: Glucose, Whole Blood 177 mg/dL (60-115)
[2025-01-24 03:59] VITALS: BP 108/59; PULSE 81; RESP 19; TEMP 36.5; O2SAT 96
[2025-01-24 06:08] LABS: MANUAL DIFF FLAG NO
[2025-01-24 06:15] LABS: Hematocrit 35.0 % (42.0-52.0); Hemoglobin 11.9 g/dl (14.0-18.0); Imm Gran Abs Auto 0.03 X10*3/uL (0.00-0.03); Imm Gran Pct Auto 0.4 % (0.0-0.4); Lymphocytes Absolute Auto 1.5 X10*3/uL (1.2-4.9); Mean Corpuscular HGB Conc 34.0 g/dl (31.0-36.0); Mean Corpuscular Hemoglobin 26.9 pg (27.0-33.0); Mean Corpuscular Volume 79.2 fL (80.0-98.0); NRBC Abs Auto 0.000 X10*3/uL (0.0-0.012); NRBC Pct Auto 0.0 /100WBC (0.0-0.2); Platelet Count 203 X10*3/uL (160-400); Red Blood Count 4.42 X10*6/uL (4.60-5.80); White Blood Count 6.7 X10*3/uL (4.8-10.8)
[2025-01-24 06:31] LABS: Alanine Aminotransferase 30 U/L (0-40); Albumin Level 3.8 g/dL (3.5-5.0); Alkaline Phosphatase 71 U/L (39-117); Anion Gap 13 (12-20); Aspartate Amino Transferase 22 U/L (5-37); Blood Urea Nitrogen 17 mg/dL (9-16); Calcium 9.1 mg/dL (8.4-10.2); Carbon Dioxide 23 mmol/L (22-29); Chloride 108 mmol/L (96-108); Creatinine Clr Calc Pharmacy 202.5; Estimated Glomerular Filt Rate > 60; Potassium 4.0 mmol/L (3.3-5.1); Sodium 140 mmol/L (135-145); Total Protein 6.7 g/dL (6.5-8.0)
[2025-01-24 07:17] LABS: Glucose, Whole Blood 167 mg/dL (60-115)
[2025-01-24] MEDS: Insulin Glargine,Hum.rec.anlog 100 UNIT/ML 10 ML VIAL 25 UNIT SUBCUT (07:36)
[2025-01-24 07:59] VITALS: BP 135/76; PULSE 80; RESP 18; TEMP 36.6; O2SAT 97
--- NOTE | 2025-01-24 08:28 | HO.PM.IMPN ---
Subjective Subjective Date of Service: 01/24/25 Physical Exam Vital Signs: Vital Signs: Last Vital Signs Temp 97.9 F 01/24/25 07:59 Pulse 80 01/24/25 07:59 Resp 18 01/24/25 07:59 BP 135/76 01/24/25 07:59 Pulse Ox 97 01/24/25 07:59 O2 Del Method Room Air 01/24/25 07:59 BMI result Body Mass Index 43.3 Objective Data Active Medications Acetaminophen (Acetaminophen 325 Mg Tablet) 975 mg PO Q6H PRN PRN Reason: Pain, Mild 1-3,fever,headache Atorvastatin Calcium (Atorvastatin Calcium 20 Mg Tablet) 20 mg PO DAILY [facility] Last Admin: 01/23/25 07:42 Dose: 20 mg Documented By: STACY Calcium Carbonate (Calcium Carbonate 750 Mg Tab.Chew) 750 mg PO Q4H PRN PRN Reason: Heartburn Dextrose (Dextrose 50 % 25 Gm/50 Ml Syringe) 25 gm IVPUSH Q15M PRN; Protocol PRN Reason: per Hypoglycemia Standing Ord. Enoxaparin Sodium (Enoxaparin Sodium 40 Mg/0.4 Ml Syringe) 40 mg SUBCUT Q24H [facility] Last Admin: 01/23/25 07:44 Dose: 40 mg Documented By: STACY Glipizide (Glipizide 5 Mg Tablet) 5 mg PO BIDWM [facility] Last Admin: 01/24/25 07:36 Dose: 5 mg Documented By: OSCAR Glucose (Glucose Gel 15 Gm Gel..Gram.) 15 gm PO Q15M PRN; Protocol PRN Reason: per Hypoglycemia Standing Ord. Cefazolin Sodium/Dextrose (Ancef) 2 gm in 50 mls @ 100 mls/hr IV Q8H [facility] Last Infusion: 01/24/25 00:28 Dose: Infused Documented By: SHANTA Insulin Glargine (Insulin Glargine,Hum.Rec.Anlog 100 Unit/Ml 10 Ml Vial) 25 unit SUBCUT DAILY [facility] Last Admin: 01/24/25 07:36 Dose: 25 unit Documented By: OSCAR Insulin Human Lispro (Insulin Lispro 100 Unit/Ml 3 Ml Vial) 0 unit SUBCUT QIDACHS [facility]; Protocol Last Admin: 01/24/25 07:36 Dose: 2 unit Documented By: OSCAR Magnesium Hydroxide (Milk Of Magnesia 30 Ml Oral.Susp) 30 ml PO DAILY PRN PRN Reason: Constipation Melatonin (Melatonin 3 Mg Tablet) 6 mg PO BEDTIME PRN PRN Reason: Insomnia Sodium Chloride (0.9 % Sodium Chloride Flush 3 Ml Syringe) 3 ml IVFLUSH QSHIFT [facility] Last Admin: 01/23/25 23:53 Dose: 3 ml Documented By: SHANTA Labs 01/24/25 05:51 01/24/25 05:51 Labs: Laboratory Results - last 24 hr 01/23/25 01/23/25 01/23/25 10:59 16:03 19:45 MCV MCH MCHC RDW Plt Count MPV Immature Gran % (Auto) Neut % (Auto) Lymph % (Auto) [place] % (Auto) Eos % (Auto) Baso % (Auto) Lymph # (Auto) [place] # (Auto) Eos # (Auto) Baso # (Auto) Abs Immat Gran (auto) Absolute Neuts (auto) Absolute Nucleated RBC Nucleated RBC % (auto) Anion Gap Estim Creat Clear Calc Estimated GFR POC Glucose 142 H 143 H 177 H Random Glucose Calcium Total Bilirubin AST ALT Alkaline Phosphatase Total Protein Albumin 01/24/25 01/24/25 05:51 07:12 MCV 79.2 L MCH 26.9 L MCHC 34.0 RDW 13.8 Plt Count 203 MPV 9.8 Immature Gran % (Auto) 0.4 Neut % (Auto) 69.8 Lymph % (Auto) 21.8 [place] % (Auto) 6.4 Eos % (Auto) 1.3 Baso % (Auto) 0.3 Lymph # (Auto) 1.5 [place] # (Auto) 0.4 Eos # (Auto) 0.1 Baso # (Auto) 0.0 Abs Immat Gran (auto) 0.03 Absolute Neuts (auto) 4.7 Absolute Nucleated RBC 0.000 Nucleated RBC % (auto) 0.0 Anion Gap 13 Estim Creat Clear Calc 202.5 Estimated GFR > 60 POC Glucose 167 H Random Glucose 169 H Calcium 9.1 Total Bilirubin 0.5 AST 22 ALT 30 Alkaline Phosphatase 71 Total Protein 6.7 Albumin 3.8 Microbiology Microbiology Results: Microbiology 01/22/25 17:33 Blood Culture - Preliminary Blood - Venous No growth after 24 hours. 01/22/25 17:33 Blood Culture - Preliminary Blood - Venous No growth after 24 hours. Blood Culture - Preliminary No growth after 24 hours. Quality Stroke Does the patient have a stroke diagnosis?: No VTE Prior VTE?: No VTE Risk Level:: Medical - moderate - high VTE Device Contraindication: Treatment Not Indicated VTE Drug Contraindication: N/A - Med Ordered
[2025-01-24] MEDS: 0.9 % Sodium Chloride Flush 3 ML SYRINGE IVFLUSH ×2 (08:33→21:02)
[2025-01-24 11:34] LABS: Glucose, Whole Blood 129 mg/dL (60-115)
--- NOTE | 2025-01-24 14:31 | MHC.CM.PN ---
Patient still awaiting PICC line insertion. Scheduled for this afternoon. Per [facility] pharmacist, they are unable to schedule med delivery for tonight without line report by 3pm. Patient has not been brought down to IR and will not be brought down prior to 3pm. Plan for PICC today, stay overnight and dc after morning dose of abx. Will need to send PICC report to [facility] in am. Patient, RN updated. CM will continue to follow.
--- NOTE | 2025-01-24 15:07 | HO.PM.IMPN ---
Subjective Subjective Date of Service: 01/24/25 Interval History: Was supposed to get a PICC line today and be discharged, however by logistics he will likely be discharged tomorrow Review of Systems Review of Systems: Yes all other systems are reviewed and are negative Physical Exam Exam: Exam: General: AOx3, morbid obesity Resp: CTA bilaterally CVS: S1, S2, RRR GI: +BS, NT, no distention Extremities: L 2nd toe cellulituis bandaged Vital Signs: Vital Signs: Last Vital Signs Temp 97.9 F 01/24/25 07:59 Pulse 80 01/24/25 07:59 Resp 18 01/24/25 07:59 BP 135/76 01/24/25 07:59 Pulse Ox 97 01/24/25 07:59 O2 Del Method Room Air 01/24/25 07:59 BMI result Body Mass Index 43.3 Objective Data Active Medications Acetaminophen (Acetaminophen 325 Mg Tablet) 975 mg PO Q6H PRN PRN Reason: Pain, Mild 1-3,fever,headache Atorvastatin Calcium (Atorvastatin Calcium 20 Mg Tablet) 20 mg PO DAILY [facility] Last Admin: 01/24/25 08:32 Dose: 20 mg Documented By: OSCAR Calcium Carbonate (Calcium Carbonate 750 Mg Tab.Chew) 750 mg PO Q4H PRN PRN Reason: Heartburn Dextrose (Dextrose 50 % 25 Gm/50 Ml Syringe) 25 gm IVPUSH Q15M PRN; Protocol PRN Reason: per Hypoglycemia Standing Ord. Enoxaparin Sodium (Enoxaparin Sodium 40 Mg/0.4 Ml Syringe) 40 mg SUBCUT Q24H [facility] Last Admin: 01/24/25 08:32 Dose: 40 mg Documented By: OSCAR Glipizide (Glipizide 5 Mg Tablet) 5 mg PO BIDWM [facility] Last Admin: 01/24/25 07:36 Dose: 5 mg Documented By: OSCAR Glucose (Glucose Gel 15 Gm Gel..Gram.) 15 gm PO Q15M PRN; Protocol PRN Reason: per Hypoglycemia Standing Ord. Cefazolin Sodium/Dextrose (Ancef) 2 gm in 50 mls @ 100 mls/hr IV Q8H [facility] Last Infusion: 01/24/25 09:10 Dose: Infused Documented By: OSCAR Insulin Glargine (Insulin Glargine,Hum.Rec.Anlog 100 Unit/Ml 10 Ml Vial) 25 unit SUBCUT DAILY [facility] Last Admin: 01/24/25 07:36 Dose: 25 unit Documented By: OSCAR Insulin Human Lispro (Insulin Lispro 100 Unit/Ml 3 Ml Vial) 0 unit SUBCUT QIDACHS [facility]; Protocol Last Admin: 01/24/25 11:34 Dose: Not Given Documented By: OSCAR Non-Admin Reason: No Insulin Coverage Magnesium Hydroxide (Milk Of Magnesia 30 Ml Oral.Susp) 30 ml PO DAILY PRN PRN Reason: Constipation Melatonin (Melatonin 3 Mg Tablet) 6 mg PO BEDTIME PRN PRN Reason: Insomnia Sodium Chloride (0.9 % Sodium Chloride Flush 3 Ml Syringe) 3 ml IVFLUSH QSHIFT [facility] Last Admin: 01/24/25 08:33 Dose: 3 ml Documented By: OSCAR Labs 01/24/25 05:51 01/24/25 05:51 Labs: Laboratory Results - last 24 hr 01/23/25 01/23/25 01/24/25 16:03 19:45 05:51 MCV 79.2 L MCH 26.9 L MCHC 34.0 RDW 13.8 Plt Count 203 MPV 9.8 Immature Gran % (Auto) 0.4 Neut % (Auto) 69.8 Lymph % (Auto) 21.8 [place] % (Auto) 6.4 Eos % (Auto) 1.3 Baso % (Auto) 0.3 Lymph # (Auto) 1.5 [place] # (Auto) 0.4 Eos # (Auto) 0.1 Baso # (Auto) 0.0 Abs Immat Gran (auto) 0.03 Absolute Neuts (auto) 4.7 Absolute Nucleated RBC 0.000 Nucleated RBC % (auto) 0.0 Anion Gap 13 Estim Creat Clear Calc 202.5 Estimated GFR > 60 POC Glucose 143 H 177 H Random Glucose 169 H Calcium 9.1 Total Bilirubin 0.5 AST 22 ALT 30 Alkaline Phosphatase 71 Total Protein 6.7 Albumin 3.8 01/24/25 01/24/25 07:12 11:30 MCV MCH MCHC RDW Plt Count MPV Immature Gran % (Auto) Neut % (Auto) Lymph % (Auto) [place] % (Auto) Eos % (Auto) Baso % (Auto) Lymph # (Auto) [place] # (Auto) Eos # (Auto) Baso # (Auto) Abs Immat Gran (auto) Absolute Neuts (auto) Absolute Nucleated RBC Nucleated RBC % (auto) Anion Gap Estim Creat Clear Calc Estimated GFR POC Glucose 167 H 129 H Random Glucose Calcium Total Bilirubin AST ALT Alkaline Phosphatase Total Protein Albumin Microbiology Microbiology Results: Microbiology 01/22/25 17:33 Blood Culture - Preliminary Blood - Venous No growth after 24 hours. 01/22/25 17:33 Blood Culture - Preliminary Blood - Venous No growth after 24 hours. Blood Culture - Preliminary No growth after 24 hours. Assessment and Plan (1) Osteophyte, left foot: Status: Acute Assessment and Plan: Pt is a 44-year-old male with a PMH significant for diabetes type 2 currently not on home medication due to insurance who presented to the ED with left foot swelling and wound on 2nd foot. Pt was admitted to the hospital for left lower extremity cellulitis with concerns for early osteomyelitis. Resolved, currently awaiting PICC line and IV antibiotic management prior to discharge Left foot cellulitis and ulceration with sepsis and concerns for early osteomyelitis secondary to skin comments all staph or strep-currently improving on broad-spectrum antibiotics Pansensitive MSSA bacteremia MRI showing possible early osteomyelitis of 2nd toe Blood culture 1/2 bottles was positive for MSSA bacteremia TTE was negative for any clear vegetation, however [place] is currently not possible required as the patient appears to be responding to the current management Initially was treated with broad-spectrum antibiotics is currently on cefazolin 2 g t.i.d. since 01/22/2025 and the last date of total antibiotics 6 weeks dose is 03/04/2025 Wound care consulted, recommend: Left Toe- Elevate foot with pillows. Limit prolonged walking and standing. Cleanse with NS moist gauze, Pat dry.? Apply barrier to periwound, apply Durafiber AG to wound bed, cover with dry gauze, ABd pad and wrap.? Change Daily while inpatient and Change every other day at time of d/c. Recommend follow up out patient Wound Clinic at [address] [place] [id number] and to call for an appointment at time of discharge. [phone].? Uncontrolled diabetes type 2, A1C -11.6 Has without home medication due to insurance issues POC euglycemic with current regimen Continue SSI, Lantus 25 units daily, Glipizide 5mg bidwm Diabetic diet, diabetic counseling, supplies needs to be adjusted Hyperlipidemia Initiated him on statins 20 mg Needs to establish with PCP for followup and monitoring DVT prophylaxis with Lovenox This note is constructed using voice recognition software. While every effort has been made to ensure accuracy, cert pharmacy tech errors may have been included. Quality Stroke Does the patient have a stroke diagnosis?: No VTE Prior VTE?: No VTE Risk Level:: Medical - moderate - high VTE Device Contraindication: Treatment Not Indicated VTE Drug Contraindication: N/A - Med Ordered
[2025-01-24 16:06] VITALS: BP 146/82; PULSE 94; RESP 18; TEMP 36.4; O2SAT 97
--- NOTE | 2025-01-24 17:44 | P.PICC_ITS ---
PICC Line Insertion NPICC Diagnosis: Osteomyelitis Indication: halfway ABT Pertinent Labs: reviewed Technique: Following informed consent including risks, benefits and alternatives and using sterile technique including cap and mask, sterile gown, glove and drape, the right arm was prepped and draped in the usual sterile fashion of full barrier technique with CHG. Following completion of [place] Protocol the skin and soft tissues were anesthetized with 1% Lidocaine plain. Using ultrasound guidance, right brachial vein access was obtained. Over an 0.018 wire through peel-away sheath, a 4fr single lumen PASV PICC line was positioned. Catheter length is 44cm internal length, ocm external length, for a total trimmed length of 44cm. The procedure was performed in [facility]. Tip verification was performed by Enrico Klein with Sherlock 3CG. Tip located in SVC. Ultrasound was used to document vein patency and for needle entry. A formal ultrasound picture and cardiac rhythm strip was recorded. [facility] [employer] has released the line for use and it is currently dressed with a StatLock, Tegaderm, and CHG disc. Verification has been performed for blood return and line patency. Arm Circumference: 40cm Equipment: [email or web address] powerPICC solo catheter with sherlock 3CG tip Catheter Type: 4fr single lumen PASV catheter Lot #: [id number]
[2025-01-24 17:51] LABS: Glucose, Whole Blood 135 mg/dL (60-115)
[2025-01-24 20:00] VITALS: BP 154/84; PULSE 104; RESP 18; TEMP 36.3; O2SAT 98
[2025-01-24 20:21] LABS: Glucose, Whole Blood 186 mg/dL (60-115)
[2025-01-25 03:46] VITALS: BP 128/65; PULSE 80; RESP 18; TEMP 36.2; O2SAT 99
[2025-01-25 05:44] LABS: MANUAL DIFF FLAG NO
[2025-01-25 05:49] LABS: Hematocrit 35.1 % (42.0-52.0); Hemoglobin 11.9 g/dl (14.0-18.0); Imm Gran Abs Auto 0.04 X10*3/uL (0.00-0.03); Imm Gran Pct Auto 0.6 % (0.0-0.4); Lymphocytes Absolute Auto 1.4 X10*3/uL (1.2-4.9); Mean Corpuscular HGB Conc 33.9 g/dl (31.0-36.0); Mean Corpuscular Hemoglobin 26.9 pg (27.0-33.0); Mean Corpuscular Volume 79.2 fL (80.0-98.0); NRBC Abs Auto 0.000 X10*3/uL (0.0-0.012); NRBC Pct Auto 0.0 /100WBC (0.0-0.2); Platelet Count 214 X10*3/uL (160-400); Red Blood Count 4.43 X10*6/uL (4.60-5.80); White Blood Count 7.2 X10*3/uL (4.8-10.8)
[2025-01-25 06:14] LABS: Alanine Aminotransferase 29 U/L (0-40); Albumin Level 3.9 g/dL (3.5-5.0); Alkaline Phosphatase 73 U/L (39-117); Anion Gap 13 (12-20); Aspartate Amino Transferase 23 U/L (5-37); Blood Urea Nitrogen 16 mg/dL (9-16); Calcium 9.1 mg/dL (8.4-10.2); Carbon Dioxide 24 mmol/L (22-29); Chloride 107 mmol/L (96-108); Creatinine Clr Calc Pharmacy 173.6; Estimated Glomerular Filt Rate > 60; Potassium 4.0 mmol/L (3.3-5.1); Sodium 140 mmol/L (135-145); Total Protein 6.8 g/dL (6.5-8.0)
[2025-01-25 07:27] LABS: Glucose, Whole Blood 147 mg/dL (60-115)
[2025-01-25] MEDS: Insulin Glargine,Hum.rec.anlog 100 UNIT/ML 10 ML VIAL 25 UNIT SUBCUT (07:55)
[2025-01-25 07:59] VITALS: BP 129/79; PULSE 87; RESP 18; TEMP 36.1; O2SAT 96
--- NOTE | 2025-01-25 11:51 | P.DS_ITS ---
DS: Providers Provider Date of Service: 01/25/25 Date of admission: 01/16/25 14:04 Date of discharge: 01/25/25 Primary care physician: None Physician Consults: 01/16/25 14:19 Consult to Wound Care Routine Reason for consultation: Left foot 3rd digit infected ulcer 01/17/25 07:36 Consult to Infectious Diseases Routine [place]ing [place] [facility] [place] [place] [facility] Reason for consultation: ?Early osteo 01/17/25 16:26 Consult to General Surgery Routine Consulting Provider[place] [facility] [place] [facility] Reason for consultation: Open diabetic ulcer right 2nd toe DS: Diagnosis Discharge Diagnosis (1) Osteophyte, left foot: Status: Acute DS: Summary Hospital Course Hospital Course: Left foot cellulitis and ulceration with sepsis and concerns for early osteomyelitis secondary to skin comments all staph or strep-currently improving on broad-spectrum antibiotics Diabetic foot ulcer Pansensitive MSSA bacteremia resolving-need 6 weeks of total antibiotics last day is 03/04/2025 Pt is a 44-year-old male with a PMH significant for newly diagnosed untreated/undertreated due to insurance issues, diabetes type 2 currently not on home medication due to insurance who presented to the ED with left foot swelling and wound on 2nd foot. Pt was admitted to the hospital for left lower extremity cellulitis with concerns for early osteomyelitis. MRI showing possible early osteomyelitis of 2nd toe Blood culture 1/2 bottles was positive for MSSA bacteremia TTE was negative for any clear vegetation, however medina is currently not possible required as the patient appears to be responding to the current management Initially was treated with broad-spectrum antibiotics is currently on cefazolin 2 g t.i.d. since 01/22/2025 and the last date of total antibiotics 6 weeks dose is 03/04/2025 Patient has a new PCP and we will get FMLA through PCP Wound care consulted, recommend: Left Toe- Elevate foot with pillows. Limit prolonged walking and standing. Cleanse with NS moist gauze, Pat dry. Apply barrier to periwound, apply Durafiber AG to wound bed, cover with dry gauze, ABd pad and wrap. Change Daily while inpatient and Change every other day at time of d/c. Recommend follow up out patient Wound Clinic at [address] [place] [id number] and to call for an appointment at time of discharge. [phone]. Uncontrolled diabetes type 2, A1C -11.6 Has without home medication due to insurance issues POC euglycemic with current regimen Continue SSI, Lantus 25 units daily, Glipizide 5mg bidwm Diabetic diet, diabetic counseling, supplies needs to be adjusted Hyperlipidemia Initiated him on statins 20 mg Needs to establish with PCP for followup and monitoring DVT prophylaxis with Lovenox This note is constructed using voice recognition software. While every effort has been made to ensure accuracy, student recruiter errors may have been included. Time Attestation Discharge Coordination Time (in mins): Thirty-five Quality: Safe Use of Opioids Does Pt have an Active Cancer Diagnosis on the Problem List?: No Quality: Stroke Does the patient have a stroke diagnosis?: No Physical Exam Vital Signs: Vital Signs: Last Vital Signs Temp 97.0 F 01/25/25 07:59 Pulse 87 01/25/25 07:59 Resp 18 01/25/25 07:59 BP 129/79 01/25/25 07:59 Pulse Ox 96 01/25/25 07:59 O2 Del Method Room Air 01/25/25 07:59 BMI result Body Mass Index 43.3 DS: Data Data Completed and Pending Labs on day of discharge: Laboratory Results - last 24 hr 01/24/25 01/24/25 01/25/25 17:47 19:29 05:37 WBC 7.2 RBC 4.43 L Hgb 11.9 L Hct 35.1 L MCV 79.2 L MCH 26.9 L MCHC 33.9 RDW 13.7 Plt Count 214 MPV 9.6 Immature Gran % (Auto) 0.6 H Neut % (Auto) 71.9 Lymph % (Auto) 19.0 L Mclennan % (Auto) 6.4 Eos % (Auto) 1.7 Baso % (Auto) 0.4 Lymph # (Auto) 1.4 Mclennan # (Auto) 0.5 Eos # (Auto) 0.1 Baso # (Auto) 0.0 Abs Immat Gran (auto) 0.04 H Absolute Neuts (auto) 5.2 Absolute Nucleated RBC 0.000 Nucleated RBC % (auto) 0.0 Sodium 140 Potassium 4.0 Chloride 107 Carbon Dioxide 24 Anion Gap 13 BUN 16 Creatinine 0.84 Estim Creat Clear Calc 173.6 Estimated GFR > 60 POC Glucose 135 H 186 H Random Glucose 150 H Calcium 9.1 Total Bilirubin 0.5 AST 23 ALT 29 Alkaline Phosphatase 73 Total Protein 6.8 Albumin 3.9 01/25/25 07:23 WBC RBC Hgb Hct MCV MCH MCHC RDW Plt Count MPV Immature Gran % (Auto) Neut % (Auto) Lymph % (Auto) Mclennan % (Auto) Eos % (Auto) Baso % (Auto) Lymph # (Auto) Mclennan # (Auto) Eos # (Auto) Baso # (Auto) Abs Immat Gran (auto) Absolute Neuts (auto) Absolute Nucleated RBC Nucleated RBC % (auto) Sodium Potassium Chloride Carbon Dioxide Anion Gap BUN Creatinine Estim Creat Clear Calc Estimated GFR POC Glucose 147 H Random Glucose Calcium Total Bilirubin AST ALT Alkaline Phosphatase Total Protein Albumin Preliminary micro results at discharge 01/22/25 17:33 Blood Culture - Preliminary Blood - Venous No growth after 48 hours. Blood Culture - Preliminary No growth after 48 hours. 01/22/25 17:33 Blood Culture - Preliminary Blood - Venous No growth after 48 hours. 01/20/25 11:43 Blood Culture - Preliminary Blood - Venous No growth after 48 hours. 01/20/25 11:43 Blood Culture - Preliminary Blood - Venous No growth after 48 hours. Discharge Plan Discharge Anticipated Discharge Date/Time: 01/25/25 11:50 Patient Disposition: Home, Self-Care Discharge Diagnosis: OM L toe 2/2 newly diag DM2 Referrals: [facility] [Other] - 1 [place] [facility] [place] [place] - 1 Day Referral Note: Call the wound clinic to schedule a follow up appointment Physician,None [Primary Care Provider, Medical] - 1 Week Discharge Medications: New cefazolin in dextrose (iso-os) 2 gram/50 mL Piggyback 50 ml IV Q8H 60 Days Qty: 60 0RF Rx Instructions: 6 weeks abx total acetaminophen 325 mg Tablet 975 mg PO Q6H PRN (Reason: Pain, Mild 1-3,Fever,Headache) 15 Days Qty: 20 0RF atorvastatin 20 mg Tablet 20 mg PO DAILY 30 Days Qty: 30 3RF insulin glargine [Lantus U-100 Insulin] 100 unit/mL Solution 25 unit subcut DAILY 30 Days Qty: 7.5 3RF insulin lispro [Admelog U-100 Insulin lispro] 100 unit/mL Solution See Protocol subcut QIDACHS 30 Days Qty: 10 3RF Protocol: Insulin Correction Scale Less than or equal to 110 ---- Give (units): 0 111 to 150 Give (units): 0 151 to 200 Give (units): 2 201 to 250 Give (units): 4 251 to 300 Give (units): 6 301 to 350 Give (units): 8 Greater than 350 Give (units): 10 Call MD if Blood Glucose > : 350 glipizide 5 mg Tablet 5 mg PO BIDWM 30 Days Qty: 60 3RF Discharge Orders: Discharge Order (Routine); Ordered 01/24/25 Ordered By: Nely Wilson Diet: Diabetic diet Activity on Discharge: As tolerated Stand Alone Forms: Patient Portal Discharge page Print Language: Cuban Activity Restrictions/Additional Instructions: Left Toe- Elevate foot with pillows. Limit prolonged walking and standing. Cleanse with NS moist gauze, Pat dry.? Apply barrier to periwound, apply Durafiber AG to wound bed, cover with dry gauze, ABd pad and wrap.? Change Daily while inpatient and Change every other day at time of d/c. Recommend follow up out patient Wound Clinic at [address] [place] [phone] and to call for an appointment at time of discharge. [phone].? Care Plan Goals: Control of diabetes Resolution of osteomyelitis with 6 weeks of antibiotics Health Concerns: See above Plan of Treatment: See above Assessment: See above Discharge Date/Time: 01/25/25 11:22
== END 2025-01-25 11:22 | disposition home or self-care (01) | DRG 720 ==
LOC: HO.ED 13:36 → HO.EDOVER 14:04 → HO.S3 19:44
PROVIDERS: Physician Assistant Medical; Student in an Organized Health Care Education/Training Program; Admitting Provider Internal Medicine; Emergency Provider Emergency Medicine; Visit Provider Student in an Organized Health Care Education/Training Program
DX: A41.9 Sepsis, unspecified organism (principal); M86.172 Other acute osteomyelitis, left ankle and foot; E11.69 Type 2 diabetes mellitus with other specified complication; E11.621 Type 2 diabetes mellitus with foot ulcer; E11.65 Type 2 diabetes mellitus with hyperglycemia; L03.032 Cellulitis of left toe; B95.61 Methicillin susceptible Staphylococcus aureus infection as the cause of diseases classified elsewhere; L97.529 Non-pressure chronic ulcer of other part of left foot with unspecified severity; E78.5 Hyperlipidemia, unspecified; T38.3X6A Underdosing of insulin and oral hypoglycemic [antidiabetic] drugs, initial encounter; E66.813 Obesity, class 3; Z71.3 Dietary counseling and surveillance; Z68.41 Body mass index [BMI] 40.0-44.9, adult; Z91.120 Patient's intentional underdosing of medication regimen due to financial hardship; Z79.899 Other long term (current) drug therapy
CPT/HCPCS: 36415; 36573; 73630; 73720; 80048; 80053; 80061; 80202; 82010; 82565; 82947; 83036; 83605; 83735; 83880; 84443; 84484; 85025; 85027; 85652; 86140; 87040; 87077; 87186; 87205; 93005; 93306; 93971; 99285; A9585; C1751; J0690; J1650; J2543; J3373; J3374; J7120

== ENCOUNTER → 2025-01-16 10:50 | Outpatient (BNV) | payer OTHER, SELFPAY | PROVIDERS: Admitting Provider Internal Medicine; Emergency Provider Emergency Medicine; Visit Provider Internal Medicine | DX: R00.0 Tachycardia, unspecified (principal) | CPT/HCPCS: 93010 ==

== ENCOUNTER → 2025-01-16 10:50 | Outpatient (BNV) | payer OTHER, SELFPAY | PROVIDERS: Visit Provider Radiology Diagnostic Radiology | DX: L97.529 Non-pressure chronic ulcer of other part of left foot with unspecified severity (principal); R22.42 Localized swelling, mass and lump, left lower limb; M79.672 Pain in left foot | CPT/HCPCS: 73630; 73720; 93971 ==

== ENCOUNTER 2025-01-16 14:04 | Outpatient (BNV) | payer OTHER, SELFPAY | END 2025-01-22 12:00 | PROVIDERS: Admitting Provider Internal Medicine; Emergency Provider Emergency Medicine; Visit Provider Internal Medicine Cardiovascular Disease | DX: I51.7 Cardiomegaly (principal); I77.810 Thoracic aortic ectasia; R78.81 Bacteremia; B95.61 Methicillin susceptible Staphylococcus aureus infection as the cause of diseases classified elsewhere | CPT/HCPCS: 93306 ==

== ENCOUNTER → 2025-01-16 14:04 | Outpatient (BNV) | payer OTHER, SELFPAY | PROVIDERS: Admitting Provider Internal Medicine; Emergency Provider Emergency Medicine; Visit Provider Internal Medicine | DX: E11.65 Type 2 diabetes mellitus with hyperglycemia (principal); E66.813 Obesity, class 3 | CPT/HCPCS: 99223 ==

== ENCOUNTER → 2025-01-16 14:04 | Outpatient (BNV) | payer OTHER, SELFPAY | PROVIDERS: Admitting Provider Internal Medicine; Emergency Provider Emergency Medicine; Visit Provider Physician Assistant Surgical | DX: L03.032 Cellulitis of left toe (principal); E11.65 Type 2 diabetes mellitus with hyperglycemia; L97.529 Non-pressure chronic ulcer of other part of left foot with unspecified severity | CPT/HCPCS: 99222; 99232 ==

== ENCOUNTER → 2025-01-16 14:04 | Outpatient (BNV) | payer OTHER, SELFPAY | PROVIDERS: Admitting Provider Internal Medicine; Emergency Provider Emergency Medicine; Visit Provider Internal Medicine | DX: E11.65 Type 2 diabetes mellitus with hyperglycemia (principal); L97.529 Non-pressure chronic ulcer of other part of left foot with unspecified severity | CPT/HCPCS: 99222; 99499 ==

== ENCOUNTER 2025-01-29 09:00 | Outpatient (AMB) | payer OTHER, SELFPAY ==
--- NOTE | 2025-01-29 09:06 | MHC.PC.OV ---
Vital Signs 01/29/25 09:08 Height 6 ft 1.23 in Weight 323 lb 2 oz BMI 42.4 BP 120/80 Blood Pressure Location Lt brachial Position Sitting Pulse 101 H Pulse Source Pulse Oximeter Temp 97.1 F Temp Source Temporal Artery Scan Pulse Oximetry (%) 96 Oxygen Delivery Method Room Air Intake Visit Reasons: establish care/discuss fmla Intake Note: Patient is a new patient here to establish care for DM, Cholesterol, Heart issues. Transferring care from Dr Ventura. Medical records have been requested and have not received. Discuss FMLA form [place] Required: No Movement Assembly Final Inspector: Not Required per policy Accompanied by: Self / Same As Patient Allergies No Known Allergies* Allergy (Uncoded 01/29/25 09:08) Unknown Medication List - Last Reconciled 01/29/25 by Eulalia Park MD acetaminophen 975 mg (3 x 325 mg) PO Q6H PRN 15 days atorvastatin 20 mg PO DAILY 30 days cefazolin in dextrose (iso-os) 2 gram/50 mL 50 mL IV Q8H 60 days glipizide 5 mg PO BIDWM 30 days insulin glargine (Lantus U-100 Insulin) 25 units (0.25 mL) subcut DAILY 30 days insulin lispro (Admelog U-100 Insulin lispro) See Protocol units subcut QIDACHS 30 days Tobacco use date assessed: 01/29/25 Dental Screening Dental Screen Date: 01/29/25 Did you have a dental visit in the last 12 months?: No Did you have a dental problem in the last 6 months where you did not have access to dental care?: No Was dental information given to patient?: No HPI HPI Comments History of Present Illness Details The patient is a 44-year-old male presenting with diabetes mellitus management and evaluation of a left foot infection. The patient was hospitalized recently due to a left foot infection, specifically affecting the toe, with a suspicion of osteomyelitis, requiring a six-week course of antibiotics. During the hospital stay, the patient was diagnosed with diabetes mellitus, which was previously known but not managed due to insurance issues. The patient reports that his blood glucose levels were significantly elevated during hospitalization, with a reading of 366 mg/dL, possibly exacerbated by the infection. He was started on glipizide and insulin therapy, and he has a history of using metformin, which was discontinued due to loss of insurance coverage. The patient experiences occasional lightheadedness following antibiotic infusions, which resolves after resting for about 30 minutes. He manages his infusions at home with assistance from his mother, without the involvement of home health services. The patient denies any shortness of breath or significant changes in bowel habits, and he reports a history of occasional dry cough and previous ankle swelling related to the infection, which has improved with antibiotic treatment. 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 He has not consumed alcohol in the past four months and has a history of heavier drinking in the past, with the last significant intake occurring 20 years ago. He is to receive Cefazolin TID at home until 03/04/2025 with a PICC line. Date of admission: 01/16/2025. DOD: 01/25/2025. [facility] Surgical History (Updated 01/29/25 @ 09:18 by FRANKY Clark) History of tonsillectomy Family History (Updated 01/29/25 @ 09:18 by FRANKY Clark) Other Substance use disorder Social History (Updated 01/29/25 @ 09:18 by FRANKY Clark) Household Members: Family Housing: House Do you presently have visiting nurse or other home services: No Alcohol intake: current Alcohol intake frequency: does not drink Patient Tobacco Use Status: Never used Tobacco e-Cigarette/Vaping Use: Never Used Second Hand Smoke Exposure: No service: No Current occupational status: employed Current occupation: [employer] Cognitive needs: No Hearing needs: No Vision needs: Yes (Contacts) Questionnaire PHQ-9 Over the last 2 weeks, how often have you been bothered by any of the following problems? 1. Little interest or pleasure in doing things: not at all 2. Feeling down, depressed, or hopeless: several days 3. Trouble falling or staying asleep, or sleeping too much: several days 4. Feeling tired or having little energy: several days 5. Poor appetite or overeating: not at all 6. Feeling bad about yourself - or that you are a failure or have let yourself or your family down: not at all 7. Trouble concentrating on things, such as reading the newspaper or watching television: not at all 8. Moving or speaking so slowly that other people could have noticed. Or the opposite - being so fidgety or restless that you have been moving around a lot more than usual: not at all 9. Thoughts that you would be better off or of hurting yourself in some way: not at all Total score: 3 Depression Screening Interpretation: Positive Depression Screening Done: Yes Source: Developed by Drs. Carlos Alberto Blankenship, Rashida Shafer, Dwayne Padilla and colleagues, with an educational barebr from [email or web address]. Thrive Questionnaire Date Thrive assessed: 01/17/25 I am a: Patient What is your living situation today?: I have a steady place to live Within the past 12 months, did the food you bought not last and you didn't have the money to get more?: Never true Within the past 12 months, did you worry whether your food would run out before you got money to buy more?: Never true Do you have trouble paying for medicines?: No Do you have trouble getting transportation to medical appointments?: No Do you have trouble paying your heating and electricity bill?: No Do you have trouble taking care of your child, family member or friend?: No Do you have trouble with day-to-day activities such as bathing, preparing meals, shopping, managing finances, etc.?: No Are you currently unemployed and looking for a job?: No Are you interested in more education?: Yes Please select the resources that you would like help with: None Currently or been in a relationship where the following occur: No concerns reported THRIVE Score: 0 AUDIT C Alcohol Use Questionnaire (AUDIT-C) 1. How often do you have a drink containing alcohol?: Monthly or less 2. How many drinks containing alcohol do you have on a typical day when you are drinking?: 1 or 2 3. How often do you have six or more drinks on one occasion?: Never Total Score: 1 MACKENZIE-7 AMB Questionnaire MACKENZIE-7 Date MACKENZIE - 7 assessed: 01/29/25 Feeling nervous, anxious, or on edge: 0 = Not at all Not being able to stop or control worryin = Not at all Worrying too much about different things: 0 = Not at all Trouble relaxin = Not at all Being so restless that it is hard to sit still: 1 = Several days Becoming easily annoyed or irritable: 0 = Not at all Feeling afraid as if something awful might happen: 0 = Not at all Total MACKENZIE-7 score (0-4 normal; 5-9 mild; 10-14 moderate; 15-21 severe): 1 Source: Developed by Drs. Carlos Alberto Blankenship, Rashida Shafer, Dwayne Padilla and colleagues, with an educational barber from [email or web address]. Review of Systems Const Details: Positives besides what was mentioned in HPI are in BOLD Constitutional: No Weight Change, No Fever, No Chills, No Night Sweats, No Fatigue, No Malaise ENT/Mouth: No Hearing Changes, No Ear Pain, No Nasal Congestion, No Sinus Pain, No Hoarseness, No sore throat, No Rhinorrhea, No Swallowing Difficulty Eyes: No Eye Pain, No Swelling, No Redness, No Foreign Body, No Discharge, No Vision Changes Cardiovascular: No Chest Pain, No SOB, No PND, No Dyspnea on Exertion, No Orthopnea, No Claudication, No Edema, No Palpitations Respiratory: No Cough, No Sputum, No Wheezing, No Smoke Exposure, No Dyspnea Gastrointestinal: No Nausea, No Vomiting, No Diarrhea, No Constipation, No Pain, No Heartburn, No Anorexia, No Dysphagia, No Hematochezia, No Melena, No Flatulence, No Jaundice Genitourinary: No Dysmenorrhea, No DUB, No Dyspareunia, No Dysuria, No Urinary Frequency, No Hematuria, No Urinary Incontinence, No Urgency, No Flank Pain, No Urinary Flow Changes, No Hesitancy Musculoskeletal: No Arthralgias, No Myalgias, No Joint Swelling, No Joint Stiffness, No Back Pain, No Neck Pain, No Injury History Skin: No Skin Lesions, No Pruritis, No Hair Changes, No Breast/Skin Changes, No Nipple Discharge Neuro: No Weakness, No Numbness, No Paresthesias, No Loss of Consciousness, No Syncope, No Dizziness, No Headache, No Coordination Changes, No Recent Falls Psych: No Anxiety/Panic, No Depression, No Insomnia, No Personality Changes, No Delusions, No Rumination, No SI/HI/AH/VH, No Social Issues, No Memory Changes, No Violence/Abuse Hx., No Eating Concerns Heme/Lymph: No Bruising, No Bleeding, No Transfusions History, No Lymphadenopathy Endocrine: No Polyuria, No Polydipsia, No Temperature Intolerance Physical exam (Primary Care) Vital Signs: Last Vital Signs Temp 97.1 F 01/29/25 09:08 Pulse 101 H 01/29/25 09:08 BP 120/80 01/29/25 09:08 Pulse Ox 96 01/29/25 09:08 Oxygen Delivery Method Room Air 01/29/25 09:08 BMI result Body Mass Index 42.4 Tobacco/Smoking Status: Tobacco use Status Tobacco use date assessed 01/29/25 01/29/25 09:09 Patient Tobacco Use Status Never used Tobacco 01/29/25 09:18 e-Cigarette/Vaping Use Never Used 01/29/25 09:09 PHQ-9: PHQ-9 Score PHQ-9: Total score 3 01/29/25 13:53 Depression Screening Interpretation: Positive Thrive Assessment: Date of Thrive Assessment Date Thrive assessed 01/17/25 01/29/25 09:06 Currently or been in a relationship where the following occur: No concerns reported Const Other: Pertinent findings are in BOLD GENERAL APPEARANCE NAD, activity normal for age, well developed/ well nourished, no cyanosis, pallor, or diaphoresis. EYES lids/conjunctiva normal. EARS/NOSE/THROAT Mucous membranes moist, nares normal, lips/teeth normal uvula midline without oral pharyngeal erythema, exudate or swelling TMs normal bilaterally. No lymphangitis/lymphedema. HEAD/NECK normocephalic atraumatic, no facial trauma, neck is supple. RESPIRATORY respiratory effort normal, speaks in full sentences, no tripod position, no accessory muscle use. Lungs clear to auscultation without rhonchi, wheezes, rales CARDIAC Regular rate and rhythm, no edema. ABDOMINAL Soft, ND/NT. No evidence of fluid wave. No pulsatile masses on exam, rebound tenderness, De La Rosa sign or pain over Mcburney's point. MUSCLES/EXTREMITIES No abnormal range of motion, no swelling. SKIN Warm, pink and dry. No rashes, dermatoses, petechiae or lesions. NEUROLOGICAL Speech is clear and appropriate. Normal level of consciousness. Gait and coordination are normal. 5/5 strength in all extremities. PSYCH Normal mood and affect. Judgement/competence is appropriate Coding Level of Care Code Est Pt Level 4 (98243) Diagnoses Diabetes E13.621; L97.509 Diabetes mellitus complication detail: with foot ulcer Diabetes mellitus complication status: with skin complications Diabetes mellitus exterminator termite insulin use: without exterminator termite use Diabetes mellitus type: other specified (including ALMA) Cellulitis L03.032 Laterality: left Site of cellulitis: extremity Site of cellulitis of extremity: toe Acute hematogenous osteomyelitis of left foot M86.072 Laterality: left Obesity, class 3 E66.813 Health maintenance examination Z00.00 Assessment & Plan Assessment & Plan (1) Diabetes: Code(s): E11.9 - Type 2 diabetes mellitus without complications Category: Medical Qualifiers: Diabetes mellitus complication detail: with foot ulcer Diabetes mellitus complication status: with skin complications Diabetes mellitus exterminator termite insulin use: without exterminator termite use Diabetes mellitus type: other specified (including ALMA) Qualified Code(s): E13.621 - Other specified diabetes mellitus with foot ulcer; L97.509 - Non-pressure chronic ulcer of other part of unspecified foot with unspecified severity Plan: - Continue Glipizide and Insulin as prescribed by Hospitalist. - Endocrinology referral as A1C is >10. - Podiatry referral. - Opthalmo referral for eye exam. - TSH, Lipid panel. (2) Cellulitis: Code(s): L03.90 - Cellulitis, unspecified Category: Medical Qualifiers: Laterality: left Site of cellulitis: extremity Site of cellulitis of extremity: toe Qualified Code(s): L03.032 - Cellulitis of left toe Plan: Same as under Osteomyelitis of the foot. (3) Acute hematogenous osteomyelitis of foot: Code(s): M86.079 - Acute hematogenous osteomyelitis, unspecified ankle and foot Category: Medical Qualifiers: Laterality: left Qualified Code(s): M86.072 - Acute hematogenous osteomyelitis, left ankle and foot Plan: - Cefazolin for 6 weeks. - ID refferal. - Wound care scheduled. - Told patient to check with ID, wound care and urgent care on who will remove his PICC line. (4) Obesity, class 3: Code(s): E66.813 - Obesity, class 3 Category: Medical Plan: Advised patient on lifestyle modifications. (5) Health maintenance examination: Code(s): Z00.00 - Encounter for general adult medical examination without abnormal findings Category: Medical Plan: Plan Health maintenance: - Hep B, C, HIV screening. - Repeat labs ordered. We will discuss the need for colonoscopy during next visit after infection resolves. Plan As above Orders: Orders Complete Blood Count Auto Diff 01/29/25 L03.032 - Cellulitis of left toe, M86.079 - Acute hematogenous osteomyelitis, unspecified ankle and foot Hepatitis B Surface Antibody 01/29/25 Z00.00 - Encounter for general adult medical examination without abnormal findings Hepatitis C Antibody Reflex 01/29/25 Z00.00 - Encounter for general adult medical examination without abnormal findings Lipid Panel 01/29/25 E13.621 - Other specified diabetes mellitus with foot ulcer, L97.509 - Non-pressure chronic ulcer of other part of unspecified foot with unspecified severity TSH reflex Free T4 01/29/25 E13.621 - Other specified diabetes mellitus with foot ulcer, L97.509 - Non-pressure chronic ulcer of other part of unspecified foot with unspecified severity Comprehensive Met. Panel 01/29/25 M86.079 - Acute hematogenous osteomyelitis, unspecified ankle and foot HIV Ab/Ag 01/29/25 Z00.00 - Encounter for general adult medical examination without abnormal findings Hepatitis B Core Antibody 01/29/25 Z00.00 - Encounter for general adult medical examination without abnormal findings Hepatitis B Surface Antigen 01/29/25 Z00.00 - Encounter for general adult medical examination without abnormal findings Referrals Ophthalmology Referral E13.621 - Other specified diabetes mellitus with foot ulcer, L97.509 - Non-pressure chronic ulcer of other part of unspecified foot with unspecified severity Infectious Disease Referral L03.032 - Cellulitis of left toe, M86.079 - Acute hematogenous osteomyelitis, unspecified ankle and foot Podiatry Referral E13.621 - Other specified diabetes mellitus with foot ulcer, L03.032 - Cellulitis of left toe, L97.509 - Non-pressure chronic ulcer of other part of unspecified foot with unspecified severity Endocrinology Referral E13.621 - Other specified diabetes mellitus with foot ulcer, L97.509 - Non-pressure chronic ulcer of other part of unspecified foot with unspecified severity
[2025-01-29 09:08] VITALS: BP 120/80; PULSE 101; TEMP 36.2; O2SAT 96; BMI 42.4
--- NOTE | 2025-01-29 10:53 | A.OFFVIS_ITS ---
Vital Signs 01/29/25 09:08 Height 6 ft 1.23 in Weight 323 lb 2 oz BMI 42.4 BP 120/80 Blood Pressure Location Lt brachial Position Sitting Pulse 101 H Pulse Source Pulse Oximeter Temp 97.1 F Temp Source Temporal Artery Scan Pulse Oximetry (%) 96 Oxygen Delivery Method Room Air Intake Visit Reasons: establish care/discuss fmla Allergies No Known Allergies* Allergy (Uncoded 01/29/25 09:08) Unknown Medication List - Last Reconciled 01/29/25 by Eulalia Park MD acetaminophen 975 mg (3 x 325 mg) PO Q6H PRN 15 days atorvastatin 20 mg PO DAILY 30 days cefazolin in dextrose (iso-os) 2 gram/50 mL 50 mL IV Q8H 60 days glipizide 5 mg PO BIDWM 30 days insulin glargine (Lantus U-100 Insulin) 25 units (0.25 mL) subcut DAILY 30 days insulin lispro (Admelog U-100 Insulin lispro) See Protocol units subcut QIDACHS 30 days HPI Comments Details: The patient is a 44-year-old male presenting with diabetes mellitus management and evaluation of a left foot infection. The patient was hospitalized recently due to a left foot infection, specifically affecting the toe, with a suspicion of osteomyelitis, requiring a six-week course of antibiotics. During the hospital stay, the patient was diagnosed with diabetes mellitus, which was previously known but not managed due to insurance issues. The patient reports that his blood glucose levels were significantly elevated during hospitalization, with a reading of 366 mg/dL, possibly exacerbated by the infection. He was started on glipizide and insulin therapy, and he has a history of using metformin, which was discontinued due to loss of insurance coverage. The patient experiences occasional lightheadedness following antibiotic infusions, which resolves after resting for about 30 minutes. He manages his infusions at home with assistance from his mother, without the involvement of home health services. The patient denies any shortness of breath or significant changes in bowel habits, and he reports a history of occasional dry cough and previous ankle swelling related to the infection, which has improved with antibiotic treatment. 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 He has not consumed alcohol in the past four months and has a history of heavier drinking in the past, with the last significant intake occurring 20 years ago. He is to recieve Cefazolin TID at home until 03/04/2025 with a PICC line. Date of admission: 01/16/2025. DOD: 01/25/2025. 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 [employer] Cognitive needs: No Hearing needs: No Vision needs: Yes (Contacts) Review of Systems Const Details: Constitutional: No Weight Change, No Fever, No Chills, No Night Sweats, No Fatigue, No Malaise ENT/Mouth: No Hearing Changes, No Ear Pain, No Nasal Congestion, No Sinus Pain, No Hoarseness, No sore throat, No Rhinorrhea, No Swallowing Difficulty Eyes: No Eye Pain, No Swelling, No Redness, No Foreign Body, No Discharge, No Vision Changes Cardiovascular: No Chest Pain, No SOB, No PND, No Dyspnea on Exertion, No Orthopnea, No Claudication, No Edema, No Palpitations Respiratory: No Cough, No Sputum, No Wheezing, No Smoke Exposure, No Dyspnea Gastrointestinal: No Nausea, No Vomiting, No Diarrhea, No Constipation, No Pain, No Heartburn, No Anorexia, No Dysphagia, No Hematochezia, No Melena, No Flatulence, No Jaundice Genitourinary: No Dysmenorrhea, No DUB, No Dyspareunia, No Dysuria, No Urinary Frequency, No Hematuria, No Urinary Incontinence, No Urgency, No Flank Pain, No Urinary Flow Changes, No Hesitancy Musculoskeletal: No Arthralgias, No Myalgias, No Joint Swelling, No Joint Stiffness, No Back Pain, No Neck Pain, No Injury History Skin: No Skin Lesions, No Pruritis, No Hair Changes, No Breast/Skin Changes, No Nipple Discharge Neuro: No Weakness, No Numbness, No Paresthesias, No Loss of Consciousness, No Syncope, No Dizziness, No Headache, No Coordination Changes, No Recent Falls Psych: No Anxiety/Panic, No Depression, No Insomnia, No Personality Changes, No Delusions, No Rumination, No SI/HI/AH/VH, No Social Issues, No Memory Changes, No Violence/Abuse Hx., No Eating Concerns Heme/Lymph: No Bruising, No Bleeding, No Transfusions History, No Lymphadenopathy Endocrine: No Polyuria, No Polydipsia, No Temperature Intolerance Physical Exam Vital Signs: Last Vital Signs Temp 97.1 F 01/29/25 09:08 Pulse 101 H 01/29/25 09:08 BP 120/80 01/29/25 09:08 Pulse Ox 96 01/29/25 09:08 Oxygen Delivery Method Room Air 01/29/25 09:08 BMI result Body Mass Index 42.4 Const Other: GENERAL APPEARANCE NAD, activity normal for age, well developed/ well nourished, no cyanosis, pallor, or diaphoresis. EYES lids/conjunctiva normal. EARS/NOSE/THROAT Mucous membranes moist, nares normal, lips/teeth normal uvula midline without oral pharyngeal erythema, exudate or swelling TMs normal bilaterally. No lymphangitis/lymphedema. HEAD/NECK normocephalic atraumatic, no facial trauma, neck is supple. RESPIRATORY respiratory effort normal, speaks in full sentences, no tripod position, no accessory muscle use. Lungs clear to auscultation without rhonchi, wheezes, rales CARDIAC Regular rate and rhythm, no edema. ABDOMINAL Soft, ND/NT. No evidence of fluid wave. No pulsatile masses on exam, rebound tenderness, De La Rosa sign or pain over Mcburney's point. Musculoskeletal: Examination of the left foot, specifically the second toe, noted to be bandaged with no surgical intervention performed. SKIN Warm, pink and dry. No rashes, dermatoses, petechiae or lesions. NEUROLOGICAL Speech is clear and appropriate. Normal level of consciousness. Gait and coordination are normal. 5/5 strength in all extremities. PSYCH Normal mood and affect. Judgement/competence is appropriate Assessment & Plan Assessment & Plan (1) Diabetes: Code(s): E11.9 - Type 2 diabetes mellitus without complications Category: Medical Qualifiers: Diabetes mellitus complication detail: with foot ulcer Diabetes m ellitus complication status: with skin complications Diabetes mellitus mcfp insulin use: without pneumatic press hand use Diabetes mellitus type: other specified (including ALMA) Qualified Code(s): E13.621 - Other specified diabetes mellitus with foot ulcer; L97.509 - Non-pressure chronic ulcer of other part of uns pecified foot with unspecified severity Plan: - Continue Glipizide and Insulin as prescribed by Hospitalist. - Endocrinology referral as A1C is >10. - Podiatry referral. - Opthalmo referral for eye exam. - TSH, Lipid panel. (2) Cellulitis: Code(s): L03.90 - Cellulitis, unspecified Category: Medical Qualifiers: Laterality: left Site of cellulitis: extremity Site of cellulitis of extremity: toe Qualified Code(s): L03.032 - Cellulitis of left toe Plan: Same as under Osteomyelitis of the foot. (3) Acute hematogenous osteomyelitis of foot: Code(s): M86.079 - Acute hematogenous osteomyelitis, unspecified ankle and foot Category: Medical Plan: - Cefazolin for 6 weeks. - ID refferal. - Wound care scheduled. - Told patient to check with ID, wound care and urgent care on who will remove his PICC line. (4) Ulcer of left second toe: Code(s): L97.529 - Non-pressure chronic ulcer of other part of left foot with unspecified severity Category: Medical Qualifiers: Non-pressure ulcer stage: unspecified non-pressure ulcer stage Qualified Code(s): L97.529 - Non-pressure chronic ulcer of other part of left foot with unspecified severity Plan: Same as under Osteomyelitis (5) Uncontrolled type 2 diabetes mellitus with hyperglycemia: Code(s): E11.65 - Type 2 diabetes mellitus with hyperglycemia Category: Medical Plan: Same as under DM. Plan Health maintenance: - Hep B, C, HIV screening. - Repeat labs ordered. Orders: Orders Complete Blood Count Auto Diff Today L03.032 - Cellulitis of left toe, M86.079 - Acute hematogenous osteomyelitis, unspecified ankle and foot Hepatitis B Surface Antibody Today Z00.00 - Encounter for general adult medical examination without abnormal findings Hepatitis C Antibody Reflex Today Z00.00 - Encounter for general adult medical examination without abnormal findings Lipid Panel Today E13.621 - Other specified diabetes mellitus with foot ulcer, L97.509 - Non-pressure chronic ulcer of other part of unspecified foot with unspecified severity TSH reflex Free T4 Today E13.621 - Other specified diabetes mellitus with foot ulcer, L97.509 - Non-pressure chronic ulcer of other part of unspecified foot with unspecified severity Comprehensive Met. Panel Today M86.079 - Acute hematogenous osteomyelitis, unspecified ankle and foot HIV Ab/Ag Today Z00.00 - Encounter for general adult medical examination without abnormal findings Hepatitis B Core Antibody Today Z00.00 - Encounter for general adult medical examination without abnormal findings Hepatitis B Surface Antigen Today Z00.00 - Encounter for general adult medical examination without abnormal findings Referrals Ophthalmology Referral E13.621 - Other specified diabetes mellitus with foot ulcer, L97.509 - Non-pressure chronic ulcer of other part of unspecified foot with unspecified severity Infectious Disease Referral L03.032 - Cellulitis of left toe, M86.079 - Acute hematogenous osteomyelitis, unspecified ankle and foot Podiatry Referral E13.621 - Other specified diabetes mellitus with foot ulcer, L03.032 - Cellulitis of left toe, L97.509 - Non-pressure chronic ulcer of other part of unspecified foot with unspecified severity Endocrinology Referral E13.621 - Other specified diabetes mellitus with foot ulcer, L97.509 - Non-pressure chronic ulcer of other part of unspecified foot with unspecified severity Coding Level of Care Code New Pt Level 4 (01704) Diagnoses Diabetes E13.621; L97.509 Diabetes mellitus complication detail: with foot ulcer Diabetes mellitus complication status: with skin complications Diabetes mellitus pneumatic press hand insulin use: without pneumatic press hand use Diabetes mellitus type: other specified (including ALMA) Cellulitis L03.032 Laterality: left Site of cellulitis: extremity Site of cellulitis of extremity: toe Acute hematogenous osteomyelitis of foot M86.079 Ulcer of second toe of left foot, unspecified ulcer stage L97.529 Non-pressure ulcer stage: unspecified non-pressure ulcer stage Uncontrolled type 2 diabetes mellitus with hyperglycemia E11.65
== END 2025-01-29 09:58 | disposition home or self-care (01) ==
LOC: HO.HMCH 09:01
PROVIDERS: Visit Provider Internal Medicine
DX: E13.621 Other specified diabetes mellitus with foot ulcer (principal); L97.509 Non-pressure chronic ulcer of other part of unspecified foot with unspecified severity; M86.072 Acute hematogenous osteomyelitis, left ankle and foot; E66.813 Obesity, class 3; Z68.41 Body mass index [BMI] 40.0-44.9, adult; L03.032 Cellulitis of left toe

== ENCOUNTER 2025-02-07 18:40 | Outpatient (REF) | payer OTHER, SELFPAY ==
[2025-02-07 18:50] LABS: MANUAL DIFF FLAG NO
[2025-02-07 19:01] LABS: Hematocrit 36.9 % (42.0-52.0); Hemoglobin 12.3 g/dl (14.0-18.0); Imm Gran Abs Auto 0.04 X10*3/uL (0.00-0.03); Imm Gran Pct Auto 0.5 % (0.0-0.4); Lymphocytes Absolute Auto 1.7 X10*3/uL (1.2-4.9); Mean Corpuscular HGB Conc 33.3 g/dl (31.0-36.0); Mean Corpuscular Hemoglobin 27.1 pg (27.0-33.0); Mean Corpuscular Volume 81.3 fL (80.0-98.0); NRBC Abs Auto 0.000 X10*3/uL (0.0-0.012); NRBC Pct Auto 0.0 /100WBC (0.0-0.2); Platelet Count 272 X10*3/uL (160-400); Red Blood Count 4.54 X10*6/uL (4.60-5.80); White Blood Count 8.4 X10*3/uL (4.8-10.8)
[2025-02-07 19:13] LABS: Anion Gap 16 (12-20); Blood Urea Nitrogen 24 mg/dL (9-16); Calcium 9.6 mg/dL (8.4-10.2); Carbon Dioxide 26 mmol/L (22-29); Chloride 105 mmol/L (96-108); Potassium 4.3 mmol/L (3.3-5.1); Sodium 143 mmol/L (135-145)
[2025-02-13 11:53] LABS: Estimated Glomerular Filt Rate > 60
== END 2025-02-07 18:41 | disposition home or self-care (01) ==
LOC: HO.LNP 18:40
PROVIDERS: Visit Provider Student in an Organized Health Care Education/Training Program
DX: L03.116 Cellulitis of left lower limb (principal); M86.9 Osteomyelitis, unspecified
CPT/HCPCS: 80048; 85025

== ENCOUNTER 2025-02-18 12:55 | Outpatient (AMB) | payer OTHER, SELFPAY ==
[2025-02-18 13:28] VITALS: BMI 41.5
--- NOTE | 2025-02-18 13:28 | MHC.OFFVIS ---
Vital Signs 02/18/25 13:28 Height 6 ft 2 in Weight 323 lb BMI 41.5 Intake Visit Reasons: Left foot ulcer Intake Note: Florentin is a 44 year old male who presents today as a new patient for an evaluation of his left foot ulcer as well as a diabetic foot exam. His glucose is currently at 138. Patient reports a bilateral tingling and numbness in his toes and a burning sensation on his left 2nd toe where the ulcer is located. He mentions he has been experiencing headaches due to an antibiotic medication he is currently taking. Patient is not taking gabapentin at this time and he has occasional back pain. Allergies No Known Allergies* Allergy (Uncoded 01/29/25 09:08) Unknown HPI Comments Details: The patient is a 44-year-old male with a PMH as seen below presenting with a left 2nd toe wound. Patient states he noticed a blister approximately a week before the patient went to the hospital, and it became infected approximately eight days ago. The patient reports intermittent burning pain in the affected toe, described as feeling like the toe is on fire, occurring once in a while. The patient was hospitalized for approximately 8.5 days and is currently on a six-week course of IV antibiotics, with three weeks remaining. The patient changes the dressings at home with the help from his mother. The patient attends wound care once a week, with the next appointment scheduled for a week from tomorrow. He denies any other pedal concerns. Denies any current N/V/F/C. [facility] Medical History (Updated 02/19/25 @ 18:50 by Bonita Stern DPM) Osteophyte, left foot Surgical History (Updated 01/29/25 @ 09:18 by FRANKY Clark) History of tonsillectomy Family History (Updated 01/29/25 @ 09:18 by FRANKY Clark) Other Substance use disorder Social History (Updated 01/29/25 @ 09:18 by FRANKY Clark) Household Members: Family Housing: House Do you presently have visiting nurse or other home services: No Alcohol intake: current Alcohol intake frequency: does not drink Patient Tobacco Use Status: Never used Tobacco e-Cigarette/Vaping Use: Never Used Second Hand Smoke Exposure: No service: No Current occupational status: employed 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 All systems reviewed & are unremarkable except as noted in HPI and below Physical Exam Vital Signs: BMI result Body Mass Index 41.5 Extrem Other: LLE Focused Physical Exam: Derm: Ulcer limited to subcutaneous layer noted measuring approximately 1 x 0.8 x 0.1 cm with a granular wound bed noted with biofilm present. Ulcer located on the dorsal aspect of the 2nd toe. No purulence or drainage noted. Active bleeding noted upon debridement. No maceration noted. Mild erythema noted. No undermining, tunneling, or probing to bone noted. Edema noted to the LLE, worse to the 2nd toe. Toenails thickened and dystrophic. Mottling of skin noted. Vasc: DP pulses palpable. PT pulses non-palpable due to edema. CFT > 3 secs. Temp gradient: warm to warm. Varicosities noted. Neuro: Protective sensations grossly diminished. MSK: No pain on palpation to the ulcerative site. No fluctuance or crepitus noted. ROM of the forefoot slightly limited. Mildly antalgic gait. Office Procedures AMB Debridement/Avulsion Podia Details: Cleansed ulcerative site with sterile saline. Obtained a wound culture to be sent for microbiology. Debrided the left 2nd toe wound using a curette until a healthy bleeding granular wound bed was noted. Applied betadine to the wound edges. Applied Santyl to the wound bed and dressed the 2x2 gauze, kerlix, and a light KATHY bandage. 20895-[place] of active wound <20cm Procedure code (CPT) selection complete Office Meds collagenase clostridium histo. 250 unit/gram topical ointment Performing Provider: Bonita Stern DPM Performing Location: [facility] Administered by: Bonita Stern DPM on 02/19/25 18:26 Dose Route Admin Location Dispensed Lot Number Expiration Date FORMERLY NAMED [facility] [employer] 1 appl topical 30 g [id number] [employer] povidone-iodine 10 % topical swab Performing Provider: Bonita Stern DPM Performing Location: [facility] Administered by: Bonita Stern DPM on 02/19/25 18:26 Dose Route Admin Location Dispensed Lot Number Expiration Date FORMERLY NAMED [facility] [employer] 1 appl topical 1 appl [id number] [employer] [place]. Results Reviewed Results Reviewed: Laboratory Tests 01/17/25 02/07/25 07:29 15:45 Random Glucose 142 H Hemoglobin A1c % 11.5 H Podiatry read of Left foot 3 views xrays (01/16/25): Osteophytic changes noted. Calcaneal spur plantarally and posteriorly, worse posterior. No soft tissue emphysema noted. No acute fractures or dislocations noted. Podiatry read of Left foot MRI (01/16/25): Ulcer noted to the dorsal aspect of the 2nd toe with surrounding edema noted. Bone quality changes noted to the proximal phalanx of the 2nd toe. No soft tissue emphysema noted. Left foot 3 views xrays (01/16/25): FINDINGS: No acute cortical disruption or gross malalignment. No lytic or blastic lesions. Exostosis at the Achilles tendon insertion. No gross joint effusion. No subcutaneous emphysema. Soft tissue calcifications in the plantar regions of the toes. Sclerosis in the navicular. IMPRESSION: Degenerative changes without acute fracture or dislocation. Enthesopathy, Achilles tendon. Left foot MRI (01/16/25): FINDINGS: Lisfranc ligament: Intact Soft tissues: There is edema and moderate to severe fatty replacement of foot musculature. There is no hyperenhancement of the deep soft tissues. There is edema in the dorsal subcutaneous soft tissues without hyperenhancement. There is edema involving the deep and superficial soft tissues of the second digit at the base of the toe through the left lateral of the DIP joint with hyperenhancement. There is an 18 mm wide area of skin ulceration dorsal to the head of the proximal phalanx. There is no loculated fluid collection. There is a joint effusion with mild hyperenhancement of the synovium. Metatarsophalangeal (MTP) joint and sesamoids of the great toe: There is a joint effusion. Joint capsule structures and plantar plate complex are intact. Lesser MTP joints & Plantar plates: Intact and unremarkable. Bones/Marrow: The head of the proximal phalanx of the second digit demonstrates very subtle decreased signal on T1 imaging with cortical thinning. There is mildly increased signal on fluid sensitive sequences in the diaphysis through the head of the proximal phalanx with concordant mild enhancement. Bone marrow signal is physiologic otherwise. IMPRESSION: There is dorsal skin ulceration adjacent the second proximal phalanx head with cellulitis involving deep and superficial soft tissues of the second toe extending from the base of the toe through the DIP joint. There are subtle signal changes on T1 imaging in the head of the proximal phalanx that could be reactive in nature or could represent early osteomyelitis. Signal changes and mild enhancement in the diaphysis of the proximal phalanx are probably reactive in nature. Small joint effusion with mild enhancement without thickening of the synovium is probably reactive in nature and less likely to represent a septic arthritis. First MTP joint effusion. LLE Venous duplex (01/16/25): FINDINGS: Respiratory variation, normal compression and augmented flow are demonstrated in the interrogated left common femoral vein, superficial femoral vein, profunda femoral vein, popliteal vein and midcalf peroneal and posterior tibial venous segments . There is no Pennington's cyst. IMPRESSION: No acute deep venous thrombosis interrogated veins, left lower extremity. Negative for DVT. Assessment & Plan Assessment & Plan (1) Ulcer of left second toe: Code(s): L97.529 - Non-pressure chronic ulcer of other part of left foot with unspecified severity Category: Medical Qualifiers: Non-pressure ulcer stage: unspecified non-pressure ulcer stage Qualified Code(s): L97.529 - Non-pressure chronic ulcer of other part of left foot with unspecified severity (2) Cellulitis: Code(s): L03.90 - Cellulitis, unspecified Category: Medical Qualifiers: Laterality: left Site of cellulitis: extremity Site of cellulitis of extremity: toe Qualified Code(s): L03.032 - Cellulitis of left toe (3) Uncontrolled type 2 diabetes mellitus with hyperglycemia: Code(s): E11.65 - Type 2 diabetes mellitus with hyperglycemia Category: Medical (4) Diabetes: Code(s): E11.9 - Type 2 diabetes mellitus without complications Category: Medical Qualifiers: Diabetes mellitus complication detail: with foot ulcer Diabetes mellitus complication status: with skin complications Diabetes mellitus jail insulin use: without jail use Diabetes mellitus type: other specified (including ALMA) Qualified Code(s): E13.621 - Other specified diabetes mellitus with foot ulcer; L97.509 - Non-pressure chronic ulcer of other part of unspecified foot with unspecified severity (5) Diabetic neuropathy: Code(s): E11.40 - Type 2 diabetes mellitus with diabetic neuropathy, unspecified Category: Medical Qualifiers: Diabetes mellitus type: type 2 Diabetes mellitus complication detail: diabetic polyneuropathy Qualified Code(s): E11.42 - Type 2 diabetes mellitus with diabetic polyneuropathy Plan Patient was informed and verbally consented to the use of an ambient scribe for clinic note documentation during this visit. I discussed the possibility of early-stage osteomyelitis and the importance of continuing the IV antibiotic regimen to prevent progression. We talked about the debridement procedure to remove biofilm and promote healing, and the use of santyl and betadine to maintain a healthy wound environment. I emphasized the need for regular wound care visits and the use of diabetic shoes or accomodative shoes/inserts to prevent further complications. Follow-up was scheduled in two weeks to assess healing progress. 1. Left 2nd toe ulcer - Continue current antibiotic regimen for the remaining three weeks. - Performed debridement to the left 2nd toe ulcer remove biofilm and promote healing. - Applied Santyl, betadine, DSD, and a light KATHY to the ulcerative site. - Obtained a wound culture. - Continue weekly visits to wound care center. - Continue with diabetic management as per PCP. Patient is to return to the office in 2 weeks for re-evaluation. Will prescribe diabetic shoes and insoles to prevent further skin breakdown. Diabetic foot exam and routine nail care at this time. Orders: Orders AMB Debridement/Avulsion Podiatry 02/18/25 E11.40 - Type 2 diabetes mellitus with diabetic neuropathy, unspecified, E11.65 - Type 2 diabetes mellitus with hyperglycemia, E13.621 - Other specified diabetes mellitus with foot ulcer, L03.032 - Cellulitis of left toe, L97.509 - Non-pressure chronic ulcer of other part of unspecified foot with unspecified severity, L97.529 - Non-pressure chronic ulcer of other part of left foot with unspecified severity Routine Culture w Gram Stain 02/18/25 L03.032 - Cellulitis of left toe, L97.529 - Non-pressure chronic ulcer of other part of left foot with unspecified severity Coding Level of Care Code New Pt Level 5 (37076) Diagnoses Ulcer of second toe of left foot, unspecified ulcer stage L97.529 Non-pressure ulcer stage: unspecified non-pressure ulcer stage Cellulitis L03.032 Laterality: left Site of cellulitis: extremity Site of cellulitis of extremity: toe Uncontrolled type 2 diabetes mellitus with hyperglycemia E11.65 Diabetes E13.621; L97.509 Diabetes mellitus complication detail: with foot ulcer Diabetes mellitus complication status: with skin complications Diabetes mellitus jail insulin use: without terminal carman use Diabetes mellitus type: other specified (including ALMA) Diabetic polyneuropathy associated with type 2 diabetes mellitus E11.42 Diabetes mellitus type: type 2 Diabetes mellitus complication detail: diabetic polyneuropathy CPT Codes Skin Debridement - CPT: 13885-Xwldfsaeemf of active wound <20cm ([id number]) Time Spent (min) 80
== END 2025-02-18 14:22 | disposition home or self-care (01) ==
LOC: HO.HPODS 12:56
PROVIDERS: Visit Provider Student in an Organized Health Care Education/Training Program
DX: E13.621 Other specified diabetes mellitus with foot ulcer (principal); L97.529 Non-pressure chronic ulcer of other part of left foot with unspecified severity; L03.032 Cellulitis of left toe
CPT/HCPCS: 97597; 99203

== ENCOUNTER 2025-02-18 13:54 | Outpatient (REF) | payer OTHER, SELFPAY | END 2025-02-18 13:55 | disposition home or self-care (01) | LOC: HO.LAB 13:54 | PROVIDERS: Visit Provider Student in an Organized Health Care Education/Training Program | DX: L97.529 Non-pressure chronic ulcer of other part of left foot with unspecified severity (principal); L03.032 Cellulitis of left toe; E11.65 Type 2 diabetes mellitus with hyperglycemia; E11.621 Type 2 diabetes mellitus with foot ulcer; E11.42 Type 2 diabetes mellitus with diabetic polyneuropathy | CPT/HCPCS: 87070; 87147; 87205; 97597 ==

== ENCOUNTER 2025-02-26 09:59 | Outpatient (REF) | payer OTHER, SELFPAY ==
[2025-02-26 10:18] LABS: MANUAL DIFF FLAG NO
[2025-02-26 10:35] LABS: Hematocrit 38.1 % (42.0-52.0); Hemoglobin 12.4 g/dl (14.0-18.0); Imm Gran Abs Auto 0.02 X10*3/uL (0.00-0.03); Imm Gran Pct Auto 0.4 % (0.0-0.4); Lymphocytes Absolute Auto 1.2 X10*3/uL (1.2-4.9); Mean Corpuscular HGB Conc 32.5 g/dl (31.0-36.0); Mean Corpuscular Hemoglobin 26.3 pg (27.0-33.0); Mean Corpuscular Volume 80.7 fL (80.0-98.0); NRBC Abs Auto 0.000 X10*3/uL (0.0-0.012); NRBC Pct Auto 0.0 /100WBC (0.0-0.2); Platelet Count 199 X10*3/uL (160-400); Red Blood Count 4.72 X10*6/uL (4.60-5.80); White Blood Count 5.0 X10*3/uL (4.8-10.8)
[2025-02-26 11:25] LABS: Alanine Aminotransferase 25 U/L (0-40); Albumin Level 4.4 g/dL (3.5-5.0); Alkaline Phosphatase 72 U/L (39-117); Anion Gap 13 (12-20); Aspartate Amino Transferase 43 U/L (5-37); Blood Urea Nitrogen 17 mg/dL (9-16); Calcium 9.5 mg/dL (8.4-10.2); Carbon Dioxide 24 mmol/L (22-29); Chloride 107 mmol/L (96-108); Cholesterol 135 mg/dL (<200); Estimated Glomerular Filt Rate > 60; HDL Cholesterol 23 mg/dL (>40); Potassium 4.0 mmol/L (3.3-5.1); Sodium 140 mmol/L (135-145); Total Protein 7.3 g/dL (6.5-8.0); Triglycerides 193 mg/dL (<150)
[2025-02-26 11:34] LABS: HBS Num1 0.07 mIU/mL (0-7.99); HBc Num1 0.05 S/CO (0.00-0.79); HBsAGNum1 0.38 S/CO (0.00-0.99); HIV Num 1 0.05 S/CO (0.00-0.99); Hepatitis B Surface Antigen Negative (Negative); ~HepC Num1 0.06 S/CO (0.00-0.79); ~Hepatitis B Surface Antibody NONREACTIVE (Nonreactive); ~Hepatitis C Antibody Nonreactive (Nonreactive)
== END 2025-02-26 10:00 | disposition home or self-care (01) ==
LOC: HO.LAB 09:59
PROVIDERS: PCP Internal Medicine; Visit Provider Internal Medicine
DX: Z00.00 Encounter for general adult medical examination without abnormal findings (principal); Z11.4 Encounter for screening for human immunodeficiency virus [HIV]; E13.621 Other specified diabetes mellitus with foot ulcer; L97.509 Non-pressure chronic ulcer of other part of unspecified foot with unspecified severity; M86.079 Acute hematogenous osteomyelitis, unspecified ankle and foot; L03.032 Cellulitis of left toe
CPT/HCPCS: 36415; 80053; 80061; 84443; 85025; 86704; 86706; 86803; 87340; 87389

== ENCOUNTER 2025-03-01 11:08 | Outpatient (REF) | payer OTHER, SELFPAY ==
[2025-03-01 12:28] LABS: Reticulocytes Absolute 0.112 X10*6/uL (0.026-0.095)
[2025-03-01 13:08] LABS: Iron 44 mcg/dL (45-160); Percent Iron Saturation 15 % (15-50); Total Iron Binding Capacity 284 mcg/dL (228-428); Unsaturated Iron Binding 240 ug/dL
[2025-03-01 13:45] LABS: Folate 6.3 ng/mL (> or = 4.0); Vitamin B12 472 pg/mL (200-900)
== END 2025-03-01 11:09 | disposition home or self-care (01) ==
LOC: HO.LAB 11:08
PROVIDERS: PCP Internal Medicine; Visit Provider Internal Medicine
DX: M86.072 Acute hematogenous osteomyelitis, left ankle and foot (principal); R78.81 Bacteremia; D64.9 Anemia, unspecified; B95.61 Methicillin susceptible Staphylococcus aureus infection as the cause of diseases classified elsewhere
CPT/HCPCS: 36415; 82607; 82746; 83090; 83540; 83921; 85045

== ENCOUNTER 2025-03-01 11:08 | Outpatient (AMB) | payer OTHER, SELFPAY ==
--- NOTE | 2025-03-01 11:16 | MHC.OFFVIS ---
Vital Signs 03/01/25 11:26 Height 6 ft 2 in Weight 335 lb BMI 43.0 Pulse 88 Pulse Source Pulse Oximeter Pulse Oximetry (%) 98 Intake Visit Reasons: C reff/celullitis Allergies No Known Allergies* Allergy (Uncoded 01/29/25 09:08) Unknown HPI Comments Details: History of Present Illness The patient is a 44-year-old male presenting with a follow-up for infectious disease management. Previously diagnosed with methicillin-sensitive Staphylococcus aureus bacteremia and osteomyelitis of the left foot, second toe, during a hospital stay in December. Discharged on January 25, the patient has been receiving intravenous Cefazolin. The patient reports no fever or adverse effects from the antibiotics and continues routine wound clinic visits. Healing progress of the left foot ulcer has been satisfactory. The current IV antibiotic course is set to complete on March 08, with plans to commence oral doxycycline. Review of Systems - General: Denies fever, chills - Dermatologic: Denies rash - Gastrointestinal: Denies diarrhea Physical Exam - Vitals- Stable, afebrile - Respiratory- Lungs clear - Cardiovascular- Heart in regular rhythm - Gastrointestinal- Abdomen soft, nontender - Extremities- Healing foot ulcer observed on the left foot,second toe Results Plan Patient was informed and verbally consented to the use of an ambient scribe for clinic note documentation during this visit. 1. Osteomyelitis, unspecified M86.9 HCC 39 Continuing management with intravenous Cefazolin scheduled to conclude on March 08. Switching to oral doxycycline therapy post IV completion to sustain treatment efficacy. 2. Bacteremia R78.81 The current antibiotic treatment with Cefazolin will transition to oral doxycycline, ensuring bacterial eradication. Scheduled close monitoring for improvement and infection resolution. Discussion Notes I thoroughly discussed with the patient and his family the current status of his conditions, methicillin-sensitive Staphylococcus aureus bacteremia and osteomyelitis of the left foot's second toe, including the anticipated completion of his current intravenous antibiotic therapy. We reviewed the scheduled removal of the PICC line and the transition to oral doxycycline therapy. I emphasized the necessity of adherence to the prescribed regimen, and we agreed upon a follow-up appointment in one month to evaluate the response to oral antibiotics and further healing progress. Medical Decision Making After considering the ongoing treatment and the positive healing response, I opted to complete the IV Cefazolin therapy and subsequently transition to oral doxycycline. This decision was influenced by the patient?s stable condition and absence of adverse effects. The goals are to ensure continued resolution of the infection and prevent recurrence. Timely removal of the PICC line post-Cefazolin completion aligns with reducing potential complications related to prolonged IV access. Patient Instructions - Complete your current IV antibiotic therapy as directed until March 08. - Expect the removal of the PICC line on March 08. - Begin taking oral doxycycline, 100 mg twice a day, for one month after IV therapy ends. - Attend your wound clinic appointments for ongoing assessment and dressing changes. - Return for follow-up in one month or sooner if symptoms worsen, such as fever or increased redness/swelling at the infection site. [facility] Medical History (Updated 02/26/25 @ 12:52 by Eulalia Park MD) Osteophyte, left foot Surgical History (Updated 01/29/25 @ 09:18 by FRANKY Clark) History of tonsillectomy Family History (Updated 01/29/25 @ 09:18 by FRANKY Clark) Other Substance use disorder Social History (Updated 01/29/25 @ 09:18 by FRANKY Clark) Household Members: Family Housing: House Do you presently have visiting nurse or other home services: No Alcohol intake: current Alcohol intake frequency: does not drink Patient Tobacco Use Status: Never used Tobacco e-Cigarette/Vaping Use: Never Used Second Hand Smoke Exposure: No service: No Current occupational status: employed Current occupation: [email or web address] Cognitive needs: No Hearing needs: No Vision needs: Yes (Contacts) Physical Exam Vital Signs: Last Vital Signs Pulse 88 03/01/25 11:26 Pulse Ox 98 03/01/25 11:26 BMI result Body Mass Index 43.0 Const Other: Assessment & Plan Assessment & Plan (1) Acute hematogenous osteomyelitis of foot: Code(s): M86.079 - Acute hematogenous osteomyelitis, unspecified ankle and foot Category: Medical Qualifiers: Laterality: left Qualified Code(s): M86.072 - Acute hematogenous osteomyelitis, left ankle and foot Plan: as above Orders: Orders IR cvc remove any age Today M86.072 - Acute hematogenous osteomyelitis, left ankle and foot Medications: New doxycycline hyclate 100 mg PO BID 60 caps 0RF 30 days Coding Level of Care Code Est Pt Level 3 (82226) Diagnoses Acute hematogenous osteomyelitis of left foot M86.072 Laterality: left
[2025-03-01 11:26] VITALS: PULSE 88; O2SAT 98; BMI 43.0
== END 2025-03-01 11:48 | disposition home or self-care (01) ==
LOC: HO.HCC 11:08
PROVIDERS: PCP Internal Medicine; Visit Provider Internal Medicine
DX: M86.072 Acute hematogenous osteomyelitis, left ankle and foot (principal)
CPT/HCPCS: 99213

== ENCOUNTER 2025-03-06 08:38 | Outpatient (AMB) | payer OTHER, SELFPAY ==
[2025-03-06 08:54] VITALS: BP 126/72; PULSE 102; RESP 18; TEMP 36.2; O2SAT 96; BMI 42.4
--- NOTE | 2025-03-06 08:54 | MHC.PC.OV ---
Vital Signs 03/06/25 08:54 Height 6 ft 2 in Weight 330 lb 6 oz BMI 42.4 BP 126/72 Blood Pressure Location Lt brachial Position Sitting Respiration 18 Pulse 102 H Pulse Source Pulse Oximeter Temp 97.1 F Temp Source Temporal Artery Scan Pulse Oximetry (%) 96 Oxygen Delivery Method Room Air Intake Visit Reasons: PHYSICAL Orthopedic Designer Required: No Accompanied by: Self / Same As Patient Allergies No Known Allergies* Allergy (Uncoded 01/29/25 09:08) Unknown Tobacco use date assessed: 03/06/25 Dental Screening Dental Screen Date: 03/06/25 Did you have a dental visit in the last 12 months?: No Did you have a dental problem in the last 6 months where you did not have access to dental care?: No Was dental information given to patient?: No HPI HPI Comments History of Present Illness Details The patient is a 44-year-old male presenting for a physical examination. The patient has a history of a foot infection, which was previously treated with a PICC line for intravenous antibiotics. Currently, the patient is on oral antibiotics, and the PICC line is scheduled for removal. The wound is healing, but wound care has advised an additional two weeks for complete recovery. He was seen by infectious disease recently who switched his IV Abx to oral. The patient has diabetes mellitus, with blood sugar levels averaging around 150 mg/dL, fluctuating between 100 and 200 mg/dL. The patient is on insulin therapy, administering 25 units in the morning, and uses short-acting insulin as needed for elevated blood sugar levels. The patient monitors blood glucose four times daily and has an upcoming endocrinology appointment. The patient reports constipation, likely related to glipizide use, and has been managing it with fiber supplements. The patient has been advised to consider qclv-[id number]-nitvlyj options like MiraLax or [place]. The patient has iron deficiency anemia, with a recommendation for a colonoscopy to rule out gastrointestinal bleeding. Dietary adjustments include increasing iron-rich foods such as spinach and liver. The patient has a history of elevated intraocular pressure, with a follow-up eye examination scheduled in six months. The patient denies smoking and has a family history of anemia. [facility] Medical History Osteophyte, left foot Surgical History History of tonsillectomy Family History Other Substance use disorder Social History Household Members: Family Housing: House Do you presently have visiting nurse or other home services: No Alcohol intake: current Alcohol intake frequency: does not drink Patient Tobacco Use Status: Never used Tobacco e-Cigarette/Vaping Use: Never Used Second Hand Smoke Exposure: No service: No Current occupational status: employed Current occupation: [employer] Cognitive needs: No Hearing needs: No Vision needs: Yes (Contacts) Questionnaire Thrive Questionnaire Date Thrive assessed: 01/29/25 I am a: Patient What is your living situation today?: I have a steady place to live Within the past 12 months, did the food you bought not last and you didn't have the money to get more?: Never true Within the past 12 months, did you worry whether your food would run out before you got money to buy more?: Never true Do you have trouble paying for medicines?: No Do you have trouble getting transportation to medical appointments?: No Do you have trouble paying your heating and electricity bill?: No Do you have trouble taking care of your child, family member or friend?: No Do you have trouble with day-to-day activities such as bathing, preparing meals, shopping, managing finances, etc.?: No Are you currently unemployed and looking for a job?: No Are you interested in more education?: Yes Please select the resources that you would like help with: None Currently or been in a relationship where the following occur: No concerns reported THRIVE Score: 0 MACKENZIE-7 AMB Questionnaire MACKENZIE-7 Date MACKENZIE - 7 assessed: 01/29/25 Source: Developed by Drs. Carlos Alberto Blankenship, Rashida Shafer, Dwayne Padilla and colleagues, with an educational barber from [employer]. Review of Systems Const Details: Positives besides what was mentioned in HPI are in BOLD Constitutional: No Weight Change, No Fever, No Chills, No Night Sweats, No Fatigue, No Malaise ENT/Mouth: No Hearing Changes, No Ear Pain, No Nasal Congestion, No Sinus Pain, No Hoarseness, No sore throat, No Rhinorrhea, No Swallowing Difficulty Eyes: No Eye Pain, No Swelling, No Redness, No Foreign Body, No Discharge, No Vision Changes Cardiovascular: No Chest Pain, No SOB, No PND, No Dyspnea on Exertion, No Orthopnea, No Claudication, No Edema, No Palpitations Respiratory: No Cough, No Sputum, No Wheezing, No Smoke Exposure, No Dyspnea Gastrointestinal: No Nausea, No Vomiting, No Diarrhea, No Constipation, No Pain, No Heartburn, No Anorexia, No Dysphagia, No Hematochezia, No Melena, No Flatulence, No Jaundice Genitourinary: No Dysmenorrhea, No DUB, No Dyspareunia, No Dysuria, No Urinary Frequency, No Hematuria, No Urinary Incontinence, No Urgency, No Flank Pain, No Urinary Flow Changes, No Hesitancy Musculoskeletal: No Arthralgias, No Myalgias, No Joint Swelling, No Joint Stiffness, No Back Pain, No Neck Pain, No Injury History Skin: No Skin Lesions, No Pruritis, No Hair Changes, No Breast/Skin Changes, No Nipple Discharge Neuro: No Weakness, No Numbness, No Paresthesias, No Loss of Consciousness, No Syncope, No Dizziness, No Headache, No Coordination Changes, No Recent Falls Psych: No Anxiety/Panic, No Depression, No Insomnia, No Personality Changes, No Delusions, No Rumination, No SI/HI/AH/VH, No Social Issues, No Memory Changes, No Violence/Abuse Hx., No Eating Concerns Heme/Lymph: No Bruising, No Bleeding, No Transfusions History, No Lymphadenopathy Endocrine: No Polyuria, No Polydipsia, No Temperature Intolerance Physical exam (Primary Care) Vital Signs: Last Vital Signs Temp 97.1 F 03/06/25 08:54 Pulse 102 H 03/06/25 08:54 Resp 18 03/06/25 08:54 BP 126/72 03/06/25 08:54 Pulse Ox 96 03/06/25 08:54 Oxygen Delivery Method Room Air 03/06/25 08:54 BMI result Body Mass Index 42.4 Tobacco/Smoking Status: Tobacco use Status Tobacco use date assessed 03/06/25 03/06/25 09:02 Patient Tobacco Use Status Never used Tobacco 03/06/25 08:56 e-Cigarette/Vaping Use Never Used 03/06/25 08:56 Thrive Assessment: Date of Thrive Assessment Date Thrive assessed 01/29/25 03/06/25 08:56 Currently or been in a relationship where the following occur: No concerns reported Const Other: Pertinent findings are in BOLD GENERAL APPEARANCE NAD, activity normal for age, well developed/ well nourished, no cyanosis, pallor, or diaphoresis. EYES lids/conjunctiva normal. EARS/NOSE/THROAT Mucous membranes moist, nares normal, lips/teeth normal uvula midline without oral pharyngeal erythema, exudate or swelling TMs normal bilaterally. No lymphangitis/lymphedema. HEAD/NECK normocephalic atraumatic, no facial trauma, neck is supple. RESPIRATORY respiratory effort normal, speaks in full sentences, no tripod position, no accessory muscle use. Lungs clear to auscultation without rhonchi, wheezes, rales CARDIAC Regular rate and rhythm, no edema. ABDOMINAL Soft, ND/NT. No evidence of fluid wave. No pulsatile masses on exam, rebound tenderness, De La Rosa sign or pain over Mcburney's point. MUSCLES/EXTREMITIES No abnormal range of motion, no swelling. SKIN Warm, pink and dry. No rashes, dermatoses, petechiae or lesions. NEUROLOGICAL Speech is clear and appropriate. Normal level of consciousness. Gait and coordination are normal. 5/5 strength in all extremities. PSYCH Normal mood and affect. Judgement/competence is appropriate Coding Level of Care Code New Pt Level 3 (76334) New Pt Prev Care 40-64y(36028) Medical Decision Making Moderate Complexity Diagnoses Health maintenance examination Z00.00 Lump in neck R22.1 Anemia D64.9 Diabetes E13.621; L97.509 Diabetes mellitus complication detail: with foot ulcer Diabetes mellitus complication status: with skin complications Diabetes mellitus custodial insulin use: without watermelon inspector use Diabetes mellitus type: other specified (including ALMA) Obesity, class 3 E66.813 Cellulitis L03.032 Laterality: left Site of cellulitis: extremity Site of cellulitis of extremity: toe Constipation K59.00 Elevated IOP H40.059 Assessment & Plan Assessment & Plan (1) Health maintenance examination: Code(s): Z00.00 - Encounter for general adult medical examination without abnormal findings Category: Medical Plan: CBC, CMP, Lipid panel, A1C, TSH w T4, vit D. Orderd recently. Shingles 2 doses when >50 yo. NI. COVID: two doses. Completed in the past. Pneumococcal: 19-64. NI. Flu vaccine: Declined. Tdap: Next due 2026. Colonoscopy: 45-75. Ordered. AAA: 65 -75. NI. CT lun - 80. NI. PSA: 50 -70 every two years. HIV: Completed. HBV: Completed. HCV: Completed. (2) Lump in neck: Code(s): R22.1 - Localized swelling, mass and lump, neck Category: Medical Plan: Patient has a lump in his right side of his neck. US neck ordered. (3) Anemia: Code(s): D64.9 - Anemia, unspecified Category: Medical Plan: - Colonoscopy recommended to rule out gastrointestinal bleeding. - Increase dietary intake of iron-rich foods such as spinach. (4) Diabetes: Code(s): E11.9 - Type 2 diabetes mellitus without complications Category: Medical Qualifiers: Diabetes mellitus complication detail: with foot ulcer Diabetes mellitus complication status: with skin complications Diabetes mellitus custodial insulin use: without watermelon inspector use Diabetes mellitus type: other specified (including ALMA) Qualified Code(s): E13.621 - Other specified diabetes mellitus with foot ulcer; L97.509 - Non-pressure chronic ulcer of other part of unspecified foot with unspecified severity Plan: - Switch Long acting insulin with 25 units to bedtime instead of morning. - Use short-acting insulin as needed for blood sugar levels above 150 mg/dL. - Monitor blood glucose four times daily. 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 - Continuous glucose monitor ordered. - Follow-up with endocrinology scheduled for March 28. (5) Obesity, class 3: Code(s): E66.813 - Obesity, class 3 Category: Medical Plan: Advised on lifestyle modificaiton such as reducing dairy, red meat, gluten, and sugar. Patient has already cut out bread, and sugar. Stil consumes pork. (6) Cellulitis: Code(s): L03.90 - Cellulitis, unspecified Category: Medical Qualifiers: Laterality: left Site of cellulitis: extremity Site of cellulitis of extremity: toe Qualified Code(s): L03.032 - Cellulitis of left toe Plan: - Continue oral antibiotics as prescribed. - PICC line removal scheduled. - Follow-up with wound care for ongoing management. - F-U with ID scheduled. (7) Constipation: Code(s): K59.00 - Constipation, unspecified Category: Medical Plan: - Continue fiber supplements. - Consider [id number] options like MiraLax or Kim. (8) Elevated IOP: Code(s): H40.059 - Ocular hypertension, unspecified eye Category: Medical Plan: Follow-up with ophthalmology. Plan During the visit, we discussed the management of the patient's foot infection, including the continuation of oral antibiotics and the removal of the PICC line. We also reviewed the patient's diabetes management plan, emphasizing the importance of regular blood glucose monitoring and the use of insulin. The patient was advised on managing constipation with fiber supplements and [id number] options. We discussed the need for a colonoscopy due to iron deficiency anemia and dietary adjustments to increase iron intake. Follow-up appointments with endocrinology and ophthalmology were confirmed. Orders: Orders US soft tiss head and/or neck Today R22.1 - Localized swelling, mass and lump, neck Referrals Open Access Screening Colonoscopy Referral Z12.11 - Encounter for screening for malignant neoplasm of colon, Z12.12 - Encounter for screening for malignant neoplasm of rectum Medications: New metformin 500 mg PO DAILY 90 tabs 3RF [FreeStyle Felicitas Continuous Glucose Monitoring] As directed 1 ea 0RF polyethylene glycol 3350 (Miralax) 17 grams PO DAILY 119 grams 0RF sennosides (senna) 8.6 mg PO BEDTIME 30 caps 3RF Changed From insulin glargine (Lantus U-100 Insulin) 25 units (0.25 mL) subcut DAILY 30 days 7.5 mL 3RF To insulin glargine (Lantus U-100 Insulin) 25 units (0.25 mL) subcut QPM 7.5 mL 3RF 30 days
== END 2025-03-06 09:39 | disposition home or self-care (01) ==
LOC: HO.HMCH 08:39
PROVIDERS: PCP Internal Medicine; Visit Provider Internal Medicine
DX: Z00.00 Encounter for general adult medical examination without abnormal findings (principal); E13.621 Other specified diabetes mellitus with foot ulcer; E66.813 Obesity, class 3; Z68.41 Body mass index [BMI] 40.0-44.9, adult; L97.509 Non-pressure chronic ulcer of other part of unspecified foot with unspecified severity; R22.1 Localized swelling, mass and lump, neck; D64.9 Anemia, unspecified; L03.032 Cellulitis of left toe; K59.00 Constipation, unspecified; H40.059 Ocular hypertension, unspecified eye

== ENCOUNTER 2025-03-07 13:01 | Outpatient (REF) | payer OTHER, SELFPAY | END 2025-03-07 13:02 | disposition home or self-care (01) | LOC: HO.LNP 13:01 | PROVIDERS: PCP Internal Medicine; Visit Provider Student in an Organized Health Care Education/Training Program | DX: E11.621 Type 2 diabetes mellitus with foot ulcer (principal); L97.522 Non-pressure chronic ulcer of other part of left foot with fat layer exposed; E11.42 Type 2 diabetes mellitus with diabetic polyneuropathy; E11.65 Type 2 diabetes mellitus with hyperglycemia; L03.032 Cellulitis of left toe; Z79.4 Long term (current) use of insulin; Z79.84 Long term (current) use of oral hypoglycemic drugs | CPT/HCPCS: 11721; 97597 ==

== ENCOUNTER 2025-03-07 13:01 | Outpatient (AMB) | payer OTHER, SELFPAY ==
--- NOTE | 2025-03-07 13:33 | A.OFFVIS_ITS ---
Intake Visit Reasons: fu wound care left 2nd toe Intake Note: Florentin is a 44 year old male who presents today for a follow up on wound care of his left 2nd toe. Patient reports the toe is doing well and you have no concerns at this time. Allergies No Known Allergies* Allergy (Uncoded 01/29/25 09:08) Unknown Medication List - Last Reconciled 03/07/25 by Bonita Stern DPM atorvastatin 20 mg PO DAILY 30 days cefazolin in dextrose (iso-os) 2 gram/50 mL 50 mL IV Q8H 60 days doxycycline hyclate 100 mg PO BID 30 days [Freestyle felicitas 2 plus readers As directed] [Freestyle felicitas 2 plus sensors As directed] [FreeStyle Felicitas Continuous Glucose Monitoring As directed] glipizide 5 mg PO BIDWM 30 days insulin glargine (Lantus U-100 Insulin) 25 units (0.25 mL) subcut QPM 30 days insulin lispro (Admelog U-100 Insulin lispro) See Protocol units subcut QIDACHS 30 days metformin 500 mg PO DAILY polyethylene glycol 3350 (Miralax) 17 grams PO DAILY sennosides (senna) 8.6 mg PO BEDTIME HPI Comments Details: The patient is a 44-year-old male presenting for a follow up of a diabetic foot ulcer to the left 2nd toe. The ulcer has been under treatment at the wound care center, with regular visits, with healing noted. He denies any new adverse events noted. He denies any current pain to the area. Denies any other pedal concerns. Denies any current N/V/F/C. [facility] Medical History Osteophyte, left foot Surgical History History of tonsillectomy Family History Other Substance use disorder Social History Household Members: Family Housing: House Do you presently have visiting nurse or other home services: No Alcohol intake: current Alcohol intake frequency: does not drink Patient Tobacco Use Status: Never used Tobacco e-Cigarette/Vaping Use: Never Used Second Hand Smoke Exposure: No service: No Current occupational status: employed Current occupation: [employer] Cognitive needs: No Hearing needs: No Vision needs: Yes (Contacts) Review of Systems Const Details: - Musculoskeletal: Reports intermittent burning pain in the left 2nd toe with a wound noted. - Neurological: Reports diminished sensation in feet. Denies pain during examination. - Derm: Thickened, elongated, and dystrophic toenails x10. All systems reviewed & are unremarkable except as noted in HPI and below Physical Exam Extrem Other: LLE Focused Physical Exam: Derm: Ulcer limited to subcutaneous layer noted measuring approximately 0.8 x 0.5 x 0.5 cm with a granular wound bed noted with biofilm present, improved from last visit. Ulcer located on the dorsal aspect of the 2nd toe. No purulence or drainage noted. Active bleeding noted upon debridement. No maceration noted. No erythema noted. No undermining, tunneling, or probing to bone noted. Edema noted to the LLE, worse to the 2nd toe. Toenails thickened, discolored, and elongated, and dystrophic. Mottling of skin noted. Vasc: DP pulses palpable. PT pulses non-palpable due to edema. CFT > 3 secs. Temp gradient: warm to warm. Varicosities noted. Pedal hair absent. Neuro: Protective sensations grossly diminished. MSK: No pain on palpation to the ulcerative site. No fluctuance or crepitus noted. ROM of the forefoot slightly limited. Mildly antalgic gait. Office Procedures AMB Debridement/Avulsion Podia Details: Cleansed ulcerative site with sterile saline. Debrided the left 2nd toe wound using a curette until a healthy bleeding granular wound bed was noted. Applied betadine to the wound edges. Applied Santyl to the wound bed and dressed the 2x2 gauze, and coban. Debrided toenails x10 using sterile nail nippers without incidents. 71910-Yqaruopqain of active wound <20cm 92872-Tswnrushxgu of Nail 6+ Procedure code (CPT) selection complete Diabetic Foot Exam G9226 - Diabetic Foot Exam Office Meds collagenase clostridium histo. 250 unit/gram topical ointment Performing Provider: Bonita Stern DPM Performing Location: [facility] [place] Pod[facility]ry-[facility] Administered by: Bonita Stern DPM on 03/08/25 11:16 Dose Route Admin Location Dispensed Lot Number Expiration Date [facility] Historical [employer] Director 1 appl topical 30 g [id number] [employer] povidone-iodine 10 % topical swab Performing Provider: Bonita Stern DPM Performing Location: [facility] [place] [facility] Administered by: Bonita Stern DPM on 03/08/25 11:16 Dose Route Admin Location Dispensed Lot Number Expiration Date [facility] Historical [employer] Director 1 appl topical 1 appl [id number] [employer] [place]. Results Reviewed Results Reviewed: Laboratory Tests 01/17/25 02/07/25 07:29 15:45 Random Glucose 142 H Hemoglobin A1c % 11.5 H Left foot wound culture (02/18/25): Coag negative Staph Podiatry read of Left foot 3 views xrays (01/16/25): Osteophytic changes noted. Calcaneal spur plantarally and posteriorly, worse posterior. No soft tissue emphysema noted. No acute fractures or dislocations noted. Podiatry read of Left foot MRI (01/16/25): Ulcer noted to the dorsal aspect of the 2nd toe with surrounding edema noted. Bone quality changes noted to the proximal phalanx of the 2nd toe. No soft tissue emphysema noted. Left foot 3 views xrays (01/16/25): FINDINGS: No acute cortical disruption or gross malalignment. No lytic or blastic lesions. Exostosis at the Achilles tendon insertion. No gross joint effusion. No subcutaneous emphysema. Soft tissue calcifications in the plantar regions of the toes. Sclerosis in the navicular. IMPRESSION: Degenerative changes without acute fracture or dislocation. Enthesopathy, Achilles tendon. Left foot MRI (01/16/25): FINDINGS: Lisfranc ligament: Intact Soft tissues: There is edema and moderate to severe fatty replacement of foot musculature. There is no hyperenhancement of the deep soft tissues. There is edema in the dorsal subcutaneous soft tissues without hyperenhancement. There is edema involving the deep and superficial soft tissues of the second digit at the base of the toe through the left lateral of the DIP joint with hyperenhancement. There is an 18 mm wide area of skin ulceration dorsal to the head of the proximal phalanx. There is no loculated fluid collection. There is a joint effusion with mild hyperenhancement of the synovium. Metatarsophalangeal (MTP) joint and sesamoids of the great toe: There is a joint effusion. Joint capsule structures and plantar plate complex are intact. Lesser MTP joints & Plantar plates: Intact and unremarkable. Bones/Marrow: The head of the proximal phalanx of the second digit demonstrates very subtle decreased signal on T1 imaging with cortical thinning. There is mildly increased signal on fluid sensitive sequences in the diaphysis through the head of the proximal phalanx with concordant mild enhancement. Bone marrow signal is physiologic otherwise. IMPRESSION: There is dorsal skin ulceration adjacent the second proximal phalanx head with cellulitis involving deep and superficial soft tissues of the second toe extending from the base of the toe through the DIP joint. There are subtle signal changes on T1 imaging in the head of the proximal phalanx that could be reactive in nature or could represent early osteomyelitis. Signal changes and mild enhancement in the diaphysis of the proximal phalanx are probably reactive in nature. Small joint effusion with mild enhancement without thickening of the synovium is probably reactive in nature and less likely to represent a septic arthritis. First MTP joint effusion. LLE Venous duplex (01/16/25): FINDINGS: Respiratory variation, normal compression and augmented flow are demonstrated in the interrogated left common femoral vein, superficial femoral vein, profunda femoral vein, popliteal vein and midcalf peroneal and posterior tibial venous segments . There is no Pennington's cyst. IMPRESSION: No acute deep venous thrombosis interrogated veins, left lower extremity. Negative for DVT. Assessment & Plan Assessment & Plan (1) Uncontrolled type 2 diabetes mellitus with hyperglycemia: Code(s): E11.65 - Type 2 diabetes mellitus with hyperglycemia Category: Medical (2) Diabetes: Code(s): E11.9 - Type 2 diabetes mellitus without complications Category: Medical Qualifiers: Diabetes mellitus complication detail: with foot ulcer Diabetes mellitus complication status: with skin complications Diabetes mellitus snf insulin use: without terminal system operator use Diabetes mellitus type: other specified (including ALMA) Qualified Code(s): E13.621 - Other specified diabetes mellitus with foot ulcer; L97.509 - Non-pressure chronic ulcer of other part of unspecified foot with unspecified severity (3) Cellulitis: Code(s): L03.90 - Cellulitis, unspecified Category: Medical Qualifiers: Laterality: left Site of cellulitis: extremity Site of cellulitis of extremity: toe Qualified Code(s): L03.032 - Cellulitis of left toe (4) Ulcer of left second toe: Code(s): L97.529 - Non-pressure chronic ulcer of other part of left foot with unspecified severity Category: Medical Qualifiers: Non-pressure ulcer stage: unspecified non-pressure ulcer stage Qualified Code(s): L97.529 - Non-pressure chronic ulcer of other part of left foot with unspecified severity (5) Diabetic neuropathy: Code(s): E11.40 - Type 2 diabetes mellitus with diabetic neuropathy, unspecified Category: Medical Qualifiers: Diabetes mellitus complication detail: diabetic polyneuropathy Diabetes mellitus type: type 2 Qualified Code(s): E11.42 - Type 2 diabetes mellitus with diabetic polyneuropathy Plan Patient was informed and verbally consented to the use of an ambient scribe for clinic note documentation during this visit. I discussed with the patient the importance of continuing treatment at the wound care center and the application of medication and dressing changes to aid in the healing of the diabetic foot ulcer. We reviewed the need for regular monitoring of the feet to prevent new injuries, given the diminished sensation due to peripheral neuropathy. The patient was informed about the positive progress of the ulcer and the plan to extend follow-up intervals as healing continues. Educated the patient on the adverse effects that Diabetes has on the body and organs. - Continue current antibiotic regimen for the remaining. - Performed debridement to the left 2nd toe ulcer remove biofilm and promote healing. - Applied Santyl, betadine, DSD,and coban to the ulcerative site. - Continue with diabetic management as per PCP. - Continue attending the wound care center for ongoing management of the diabetic foot ulcer. - Apply prescribed medication and bandages to the ulcer to promote healing. - Monitor feet regularly for any new wounds or changes in the existing ulcer. RTC 1 month for re-evaluation. Orders: Orders AMB Diabetic Foot Exam 03/07/25 E11.42 - Type 2 diabetes mellitus with diabetic polyneuropathy, E11.65 - Type 2 diabetes mellitus with hyperglycemia, E13.621 - Other specified diabetes mellitus with foot ulcer, L03.032 - Cellulitis of left toe, L97.509 - Non-pressure chronic ulcer of other part of unspecified foot with unspecified severity, L97.529 - Non-pressure chronic ulcer of other part of left foot with unspecified severity AMB Debridement/Avulsion Podiatry 03/07/25 E11.42 - Type 2 diabetes mellitus with diabetic polyneuropathy, E11.65 - Type 2 diabetes mellitus with hyperglycemia, E13.621 - Other specified diabetes mellitus with foot ulcer, L03.032 - Cellulitis of left toe, L97.509 - Non-pressure chronic ulcer of other part of unspecified foot with unspecified severity, L97.529 - Non-pressure chronic ulcer of other part of left foot with unspecified severity Coding Level of Care Code Est Pt Level 4 (62291) Diagnoses Uncontrolled type 2 diabetes mellitus with hyperglycemia E11.65 Diabetes E13.621; L97.509 Diabetes mellitus complication detail: with foot ulcer Diabetes mellitus complication status: with skin complications Diabetes mellitus terminal system operator insulin use: without snf use Diabetes mellitus type: other specified (including ALMA) Cellulitis L03.032 Laterality: left Site of cellulitis: extremity Site of cellulitis of extremity: toe Ulcer of second toe of left foot, unspecified ulcer stage L97.529 Non-pressure ulcer stage: unspecified non-pressure ulcer stage Diabetic polyneuropathy associated with type 2 diabetes mellitus E11.42 Diabetes mellitus complication detail: diabetic polyneuropathy Diabetes mellitus type: type 2 CPT Codes Skin Debridement - CPT: 96707-Crcsniwafkq of active wound <20cm ([id number]) Skin Debridement - CPT: 27400-Kxubjfrnfnl of Nail 6+ ([id number]) Diabetic Foot Exam - CPT: G9226 - Diabetic Foot Exam ([id number]) Time Spent (min) 55
== END 2025-03-07 13:53 | disposition home or self-care (01) ==
LOC: HO.HPODS 13:01
PROVIDERS: PCP Internal Medicine; Visit Provider Student in an Organized Health Care Education/Training Program
DX: E11.65 Type 2 diabetes mellitus with hyperglycemia (principal); E11.621 Type 2 diabetes mellitus with foot ulcer; L97.509 Non-pressure chronic ulcer of other part of unspecified foot with unspecified severity; E11.42 Type 2 diabetes mellitus with diabetic polyneuropathy; L03.032 Cellulitis of left toe; L97.529 Non-pressure chronic ulcer of other part of left foot with unspecified severity
CPT/HCPCS: 11721; 97597; 99214; G9226

== ENCOUNTER 2025-03-07 19:04 | Outpatient (REF) | payer OTHER, SELFPAY ==
[2025-03-07 19:09] LABS: MANUAL DIFF FLAG NO
[2025-03-07 19:29] LABS: Hematocrit 40.3 % (42.0-52.0); Hemoglobin 12.9 g/dl (14.0-18.0); Imm Gran Abs Auto 0.04 X10*3/uL (0.00-0.03); Imm Gran Pct Auto 0.4 % (0.0-0.4); Lymphocytes Absolute Auto 2.2 X10*3/uL (1.2-4.9); Mean Corpuscular HGB Conc 32.0 g/dl (31.0-36.0); Mean Corpuscular Hemoglobin 25.7 pg (27.0-33.0); Mean Corpuscular Volume 80.4 fL (80.0-98.0); NRBC Abs Auto 0.000 X10*3/uL (0.0-0.012); NRBC Pct Auto 0.0 /100WBC (0.0-0.2); Platelet Count 289 X10*3/uL (160-400); Red Blood Count 5.01 X10*6/uL (4.60-5.80); White Blood Count 10.2 X10*3/uL (4.8-10.8)
[2025-03-07 19:39] LABS: Anion Gap 15 (12-20); Blood Urea Nitrogen 26 mg/dL (9-16); Calcium 9.8 mg/dL (8.4-10.2); Carbon Dioxide 23 mmol/L (22-29); Chloride 105 mmol/L (96-108); Estimated Glomerular Filt Rate > 60; Potassium 4.3 mmol/L (3.3-5.1); Sodium 139 mmol/L (135-145)
== END 2025-03-07 19:05 | disposition home or self-care (01) ==
LOC: HO.LNP 19:04
PROVIDERS: Visit Provider Student in an Organized Health Care Education/Training Program
DX: L03.116 Cellulitis of left lower limb (principal); M26.9 Dentofacial anomaly, unspecified
CPT/HCPCS: 80048; 85025

== ENCOUNTER 2025-03-28 09:20 | Outpatient (AMB) | payer OTHER, SELFPAY ==
--- NOTE | 2025-03-28 09:26 | A.OFFVIS_ITS ---
Vital Signs 03/28/25 09:30 Height 6 ft 2 in Weight 339 lb 1.135 oz BMI 43.5 BP 126/74 Blood Pressure Location Rt brachial Position Sitting Pulse 101 H Pulse Source Pulse Oximeter Pulse Oximetry (%) 98 Oxygen Delivery Method Room Air Intake Visit Reasons: Other specified diabetes mellitus with foot ulcer Intake Note: New patient internally referred by PCP for Diabetes Mellitus. Patient reports he had an ulcer on his left foot and had a debridement, states he is being followed by [facility], last seen 03/12/2025. Last Diabetic Eye exam: March 05, 2025 [facility] Last Podiatry Visit: March 07, 2025, [facility] Random Glucose: 131 mg/dl Hgb A1C: 11.5% 01/17/2025 Keno Dealer Required: No Accompanied by: Self / Same As Patient Allergies No Known Allergies* Allergy (Uncoded 03/28/25 09:32) Unknown Medication List - Last Reconciled 03/28/25 by Carlos Alberto Murphy MD atorvastatin 20 mg PO DAILY 30 days blood sugar diagnostic (FreeStyle Lite Strips) As directed blood-glucose meter (FreeStyle Lite Meter kit) As directed cefazolin in dextrose (iso-os) 2 gram/50 mL 50 mL IV Q8H 60 days doxycycline hyclate 100 mg PO BID 30 days [Freestyle felicitas 2 plus readers As directed] [Freestyle felicitas 2 plus sensors As directed] [FreeStyle Felicitas Continuous Glucose Monitoring As directed] glipizide 5 mg PO BIDWM 30 days insulin glargine (Lantus U-100 Insulin) 25 units (0.25 mL) subcut QPM 30 days insulin lispro (Admelog U-100 Insulin lispro) See Protocol units subcut QIDACHS 30 days lancets (FreeStyle Lancets) As directed metformin 500 mg PO DAILY pen needle, diabetic (Graciela 2nd Gen Pen Needle) As directed polyethylene glycol 3350 (Miralax) 17 grams PO DAILY sennosides (senna) 8.6 mg PO BEDTIME HPI Comments Details: 44 YO M who is seen in consultation for T2DM at the request of PCP. Recently admitted with a foot ulcer to [facility] Initially diagnosed with prediabetes then T2DM in recent hospitalization . Was initially started on treatment with metformin . Current regimen . Lantus 25 units , Ademalog 2 units pre meals , metformin 500 mg QD glipizide 5 mg BID Per the CGM Felicitas CGMS is active 83 % of time . data the patient's predicted A1C is 7% Avg glucose is 154 . Variability of 13.8 The patient's blood sugars were in target 91% of the time, above target 9% of the time, and below target 0% of the time Reports low sugars occasionally . Treats lows with fruit . Checks sugar after to ensure it is rising. Checks 1 hr later Family history of T2DM in maternal grandfather and father is prediabetic . Has eyes checked yearly, last eye exam 02/2025 , denies retinopathy. Has neuropathy,, sees podiatry.Sees wound care Denies nephropathy, Not on KATHY/ARB. Has HLD, on statin. Last LDL 74 as measured on []. Denies CAD. Not Had diabetes education. [facility] Medical History (Updated 03/06/25 @ 09:40 by Eulalia Park MD) Osteophyte, left foot Surgical History History of tonsillectomy Family History Other Substance use disorder Social History Household Members: Family Housing: House Do you presently have visiting nurse or other home services: No Alcohol intake: current Alcohol intake frequency: does not drink Patient Tobacco Use Status: Never used Tobacco e-Cigarette/Vaping Use: Never Used Second Hand Smoke Exposure: No service: No Current occupational status: employed Current occupation: [employer] Cognitive needs: No Hearing needs: No Vision needs: Yes (Contacts) Physical Exam Absence of Cushingoid features except supraclavicular fat pad . Absence of ac romegalic features. Neck exam reveals nl size thyroid about 15 gms. No thyroid nodules palpable. No carotid bruits present. Lungs CTA. Heart S1 S2, Reg R/R. No M/R/ G. Skin exam reveals absence of vitiligo or acanthosis nigricans. Abdominal exam reveals Soft NT/ND with NA BS. No organomegaly present. Neck Other: . Extrem Other: Visual exam of foot performed. No ulcerations or open lesions. No onchomycosis, no callouses.Pulses 2 + distally Sensation intact to decreased monofilament exam. Vibratory sensation sensed is decreased with 128 Hz tuning fork. Healing ulcer on 2nd L toe Assessment & Plan Assessment & Plan (1) Uncontrolled type 2 diabetes mellitus with hyperglycemia: Code(s): E11.65 - Type 2 diabetes mellitus with hyperglycemia Category: Medical Plan: This is a 44-year-old white male with a history of type 2 diabetes being treated with metformin, glipizide and basal-bolus insulin with good glycemic control and known microvascular complications namely neuropathy. The plan is to talk to the patient about potentially starting a G LP 1 agonist namely Mounjaro. We will start Mounjaro 2.5 mg Q weekly. Went over side effects of Mounjaro including but not limited to nausea, vomiting and rare risk of pancreatitis. We will discontinue the glipizide. We will instruct the patient to call to to report any hypoglycemia to adjust insulin regimen. 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 We will check microalbumin to creatinine ratio. We will check 24 hour urine for free cortisol and creatinine are low doubt [place] syndrome in light of the supraclavicular fat pad. We will have patient follow up in 2 months Orders: Orders Creatinine, 24 Hr Group Today E11.65 - Type 2 diabetes mellitus with hyperglycemia Cortisol, Free 24Hr Urine Today E11.65 - Type 2 diabetes mellitus with hyperglycemia Microalbumin, Random (w Creat) Today E11.65 - Type 2 diabetes mellitus with hyperglycemia Referrals Diabetes Education Referral E11.65 - Type 2 diabetes mellitus with hyperglycemia Nutrition/Dietitian Referral E11.65 - Type 2 diabetes mellitus with hyperglycemia Medications: New Mounjaro (tirzepatide) for 4 weeks 2.5 mg (0.5 mL) subcut QWEEK 2 mL 4RF NS Changed From metformin 500 mg PO DAILY 90 tabs 3RF To metformin 500 mg PO BID 90 tabs 3RF Discontinued glipizide Discontinued Reason: Doctor's Order 5 mg PO BIDWM 30 days 60 tabs 3RF Coding Level of Care Code New Pt Level 5 (01805) Complex EM visit Add On G2211 Diagnoses Uncontrolled type 2 diabetes mellitus with hyperglycemia E11.65
[2025-03-28 09:30] VITALS: BP 126/74; PULSE 101; O2SAT 98; BMI 43.5
[2025-03-28 09:44] LABS: Glucose, Whole Blood 131 mg/dL (60-115)
== END 2025-03-28 10:20 | disposition home or self-care (01) ==
LOC: HO.ENCR 09:20
PROVIDERS: Visit Provider Internal Medicine Endocrinology, Diabetes & Metabolism
DX: E11.65 Type 2 diabetes mellitus with hyperglycemia (principal)
CPT/HCPCS: 99204; G2211

== ENCOUNTER → 2025-03-28 09:20 | Outpatient (BNVA) | payer OTHER, SELFPAY | PROVIDERS: Visit Provider Internal Medicine Endocrinology, Diabetes & Metabolism | DX: E11.65 Type 2 diabetes mellitus with hyperglycemia (principal) | CPT/HCPCS: 82947 ==

== ENCOUNTER 2025-03-29 10:40 | Outpatient (AMB) | payer OTHER, SELFPAY ==
--- NOTE | 2025-03-29 10:39 | A.OFFVIS_ITS ---
Vital Signs 3 03/29/25 10:45 Height 6 ft 2 in Weight 343 lb BMI 44.0 Pulse 108 H Pulse Source Pulse Oximeter Pulse Oximetry (%) 98 Oxygen Delivery Method Room Air Intake Visit Reasons: [facility] reff/celullitis Allergies No Known Allergies* Allergy (Uncoded 03/29/25 10:47) Unknown HPI HPI [facility] reff/celullitis: Details: History of Present Illness The patient is a 44-year-old male presenting with a follow-up for foot wound healing. Treatment initially involved antibiotics, Kefzol and Doxycycline, which the patient completed as prescribed. He reports that the foot wound is healing well without any new symptoms. There is an absence of complications or discomfort related to the wound currently. The patient manages his blood sugar levels and ensures proper footwear to aid in the healing process. Review of Systems - General: Denies fever, chills, or malaise. - Respiratory: Denies shortness of breath or cough. - Cardiovascular: Denies chest pain or palpitations. - Gastrointestinal: Denies nausea or abdominal pain. - Musculoskeletal: Reports a healing foot wound; no additional complaints. - Endocrine: Denies recent issues, monitors blood sugar as instructed. Physical Exam - Vitals- Stable. - Respiratory- Lungs clear. - Cardiovascular- Heart rhythm regular. - Gastrointestinal- Abdomen soft. - Musculoskeletal- Lower extremities noted to be healing well, consistent with ongoing recovery of foot wound. Results Plan Patient was informed and verbally consented to the use of an ambient scribe for clinic note documentation during this visit. 1. Foot Wound Healing The foot wound shows good signs of healing following antibiotics. Encourage monitoring of blood sugar levels and using appropriate footwear. Continue with regular podiatry care and seek further evaluation if complications arise. Discussion Notes During the visit, we discussed the current status of the foot wound, which is healing well. I emphasized the importance of continuing to monitor his blood sugar, as this is crucial for wound healing. We also discussed the need to ensure appropriate footwear to avoid further trauma or complications. The patient understood and agreed with the plan to maintain care and seek podiatry input as needed. No additional treatments were deemed necessary at this time. Medical Decision Making In evaluating the healing foot wound, the completed course of antibiotics including Kefzol and Doxycycline has been beneficial, as there is no current infection or symptoms. The main goal is to continue the wound?s improvement by maintaining good blood sugar control and using appropriate footwear. Regular monitoring is important, and follow-up with podiatry is essential to address any issues early. The patient?s positive response to current management negates the need for further immediate interventions. Patient Instructions - Check your blood sugar regularly to support wound healing. - Wear appropriate footwear to prevent further injury. - Keep your podiatry appointments. - Return for care if the wound worsens or new issues arise. [facility] Medical History (Updated 03/06/25 @ 09:40 by Eulalia Park MD) Osteophyte, left foot Surgical History History of surgery History of tonsillectomy Family History Other Substance use disorder Social History Household Members: Family Housing: House Do you presently have visiting nurse or other home services: No Alcohol intake: current Alcohol intake frequency: does not drink Patient Tobacco Use Status: Never used Tobacco e-Cigarette/Vaping Use: Never Used Second Hand Smoke Exposure: No service: No Current occupational status: employed Current occupation: [employer] Cognitive needs: No Hearing needs: No Vision needs: Yes (Contacts) Physical Exam Exam Exam: Vital Signs: Last Vital Signs Pulse 108 H 03/29/25 10:45 Pulse Ox 98 03/29/25 10:45 Oxygen Delivery Method Room Air 03/29/25 10:45 BMI result Body Mass Index 44.0 Assessment & Plan Assessment & Plan (1) Acute hematogenous osteomyelitis of foot: Code(s): M86.079 - Acute hematogenous osteomyelitis, unspecified ankle and foot Category: Medical Qualifiers: Laterality: left Qualified Code(s): M86.072 - Acute hematogenous osteomyelitis, left ankle and foot Plan: as above Coding Level of Care Code Est Pt Level 3 (42610) Diagnoses Acute hematogenous osteomyelitis of left foot M86.072 Laterality: left
[2025-03-29 10:45] VITALS: PULSE 108; O2SAT 98; BMI 44.0
== END 2025-03-29 11:10 | disposition home or self-care (01) ==
LOC: HO.HID 10:40
PROVIDERS: Visit Provider Internal Medicine
DX: M86.072 Acute hematogenous osteomyelitis, left ankle and foot (principal)
CPT/HCPCS: 99213

== ENCOUNTER 2025-04-04 13:19 | Outpatient (AMB) | payer OTHER, SELFPAY ==
[2025-04-04 13:24] VITALS: BMI 44.0
--- NOTE | 2025-04-04 13:24 | MHC.OFFVIS ---
Vital Signs 04/04/25 13:24 Height 6 ft 2 in Weight 343 lb BMI 44.0 Intake Visit Reasons: f/u left 2nd toe ulcer Intake Note: Florentin is a 44 year old male who presents for a follow up of a left 2nd toe ulcer. Patient reports he is doing well with no further concerns at this time. Allergies No Known Allergies* Allergy (Uncoded 03/29/25 10:47) Unknown HPI Comments Details: The patient is a 44-year-old male presenting for a follow up of a left 2nd toe diabetic ulcer. The patient has been consistently going to the wound care center for debridements and dressing changes. Patient states his last appointment is next Tuesday due to significant improvement. The foot wound has been healing well with no significant pain or pus reported. The patient is on his feet all day at work and wears steel-toed boots. Patient states he also does intermittent dressing changes at home as well. Denies any other pedal concerns. Denies any new pedal injuries. [facility] Medical History (Updated 03/06/25 @ 09:40 by Eulalia Park MD) Osteophyte, left foot Surgical History History of surgery History of tonsillectomy Family History Other Substance use disorder Social History Household Members: Family Housing: House Do you presently have visiting nurse or other home services: No Alcohol intake: current Alcohol intake frequency: does not drink Patient Tobacco Use Status: Never used Tobacco e-Cigarette/Vaping Use: Never Used Second Hand Smoke Exposure: No service: No Current occupational status: employed Current occupation: [employer] Cognitive needs: No Hearing needs: No Vision needs: Yes (Contacts) Review of Systems Const Details: - Musculoskeletal: Reports intermittent burning pain in the left 2nd toe with a wound noted. - Neurological: Reports diminished sensation in feet. Denies pain during examination. All systems reviewed & are unremarkable except as noted in HPI and below Physical Exam Vital Signs: BMI result Body Mass Index 44.0 Extrem Other: LLE Focused Physical Exam: Derm: Ulcer limited to subcutaneous layer noted measuring approximately 0.7 x 0.5 x 0.5 cm with a granular wound bed noted with biofilm present, improved from last visit. Ulcer located on the dorsal aspect of the 2nd toe. No purulence or drainage noted. Active bleeding noted upon debridement. No maceration noted. No erythema noted. No undermining, tunneling, or probing to bone noted. Edema noted to the LLE, worse to the 2nd toe. Toenails thickened, discolored, and dystrophic. Mottling of skin noted. Vasc: DP pulses palpable. PT pulses non-palpable due to edema. CFT > 3 secs. Temp gradient: warm to warm. Varicosities noted. Pedal hair absent. Neuro: Protective sensations grossly diminished. MSK: No pain on palpation to the ulcerative site. No fluctuance or crepitus noted. ROM of the forefoot slightly limited. Hammertoe deformities noted. Mildly antalgic gait unassisted. Office Procedures AMB Debridement/Avulsion Podia Details: Cleansed ulcerative site with sterile saline. Debrided the left 2nd toe ulcer using a curette until a healthy bleeding granular wound bed was noted. Applied betadine to the wound edges. Applied Santyl to the wound bed and dressed the left 2nd toe with 2x2 gauze, and coban. 18284-[id number] of active wound <20cm Procedure code (CPT) selection complete Office Meds collagenase clostridium histo. 250 unit/gram topical ointment Performing Provider: Bonita Stern DPM Performing Location: [facility] Administered by: Bonita Stern DPM on 04/07/25 18:31 Dose Route Admin Location Dispensed Lot Number Expiration Date [facility] Legal Mediator 1 appl topical 30 g [id number] [place] povidone-iodine 10 % topical swab Performing Provider: Bonita Stern DPM Performing Location: [facility] Administered by: Bonita Stern DPM on 04/07/25 18:31 Dose Route Admin Location Dispensed Lot Number Expiration Date [facility] Legal Mediator 1 appl topical 1 appl [id number] [employer] [place]. Results Reviewed Results Reviewed: Laboratory Tests 01/17/25 02/07/25 03/07/25 07:29 15:45 17:00 WBC 10.2 Glucose (Clinic) Random Glucose 142 H Hemoglobin A1c % 11.5 H 03/28/25 09:39 WBC Glucose (Clinic) 131 H Random Glucose Hemoglobin A1c % Left foot wound culture (02/18/25): Coag negative Staph Podiatry read of Left foot 3 views xrays (01/16/25): Osteophytic changes noted. Calcaneal spur plantarally and posteriorly, worse posterior. No soft tissue emphysema noted. No acute fractures or dislocations noted. Podiatry read of Left foot MRI (01/16/25): Ulcer noted to the dorsal aspect of the 2nd toe with surrounding edema noted. Bone quality changes noted to the proximal phalanx of the 2nd toe. No soft tissue emphysema noted. Left foot 3 views xrays (01/16/25): FINDINGS: No acute cortical disruption or gross malalignment. No lytic or blastic lesions. Exostosis at the Achilles tendon insertion. No gross joint effusion. No subcutaneous emphysema. Soft tissue calcifications in the plantar regions of the toes. Sclerosis in the navicular. IMPRESSION: Degenerative changes without acute fracture or dislocation. Enthesopathy, Achilles tendon. Left foot MRI (01/16/25): FINDINGS: Lisfranc ligament: Intact Soft tissues: There is edema and moderate to severe fatty replacement of foot musculature. There is no hyperenhancement of the deep soft tissues. There is edema in the dorsal subcutaneous soft tissues without hyperenhancement. There is edema involving the deep and superficial soft tissues of the second digit at the base of the toe through the left lateral of the DIP joint with hyperenhancement. There is an 18 mm wide area of skin ulceration dorsal to the head of the proximal phalanx. There is no loculated fluid collection. There is a joint effusion with mild hyperenhancement of the synovium. Metatarsophalangeal (MTP) joint and sesamoids of the great toe: There is a joint effusion. Joint capsule structures and plantar plate complex are intact. Lesser MTP joints & Plantar plates: Intact and unremarkable. Bones/Marrow: The head of the proximal phalanx of the second digit demonstrates very subtle decreased signal on T1 imaging with cortical thinning. There is mildly increased signal on fluid sensitive sequences in the diaphysis through the head of the proximal phalanx with concordant mild enhancement. Bone marrow signal is physiologic otherwise. IMPRESSION: There is dorsal skin ulceration adjacent the second proximal phalanx head with cellulitis involving deep and superficial soft tissues of the second toe extending from the base of the toe through the DIP joint. There are subtle signal changes on T1 imaging in the head of the proximal phalanx that could be reactive in nature or could represent early osteomyelitis. Signal changes and mild enhancement in the diaphysis of the proximal phalanx are probably reactive in nature. Small joint effusion with mild enhancement without thickening of the synovium is probably reactive in nature and less likely to represent a septic arthritis. First MTP joint effusion. LLE Venous duplex (01/16/25): FINDINGS: Respiratory variation, normal compression and augmented flow are demonstrated in the interrogated left common femoral vein, superficial femoral vein, profunda femoral vein, popliteal vein and midcalf peroneal and posterior tibial venous segments . There is no Pennington's cyst. IMPRESSION: No acute deep venous thrombosis interrogated veins, left lower extremity. Negative for DVT. Assessment & Plan Assessment & Plan (1) Uncontrolled type 2 diabetes mellitus with hyperglycemia: Code(s): E11.65 - Type 2 diabetes mellitus with hyperglycemia Category: Medical (2) Diabetes: Code(s): E11.9 - Type 2 diabetes mellitus without complications Category: Medical Qualifiers: Diabetes mellitus complication detail: with foot ulcer Diabetes mellitus complication status: with skin complications Diabetes mellitus buttermaker continuous churn insulin use: without buttermaker continuous churn use Diabetes mellitus type: other specified (including ALMA) Qualified Code(s): E13.621 - Other specified diabetes mellitus with foot ulcer; L97.509 - Non-pressure chronic ulcer of other part of unspecified foot with unspecified severity (3) Cellulitis: Code(s): L03.90 - Cellulitis, unspecified Category: Medical Qualifiers: Laterality: left Site of cellulitis: extremity Site of cellulitis of extremity: toe Qualified Code(s): L03.032 - Cellulitis of left toe (4) Ulcer of left second toe: Code(s): L97.529 - Non-pressure chronic ulcer of other part of left foot with unspecified severity Category: Medical Qualifiers: Non-pressure ulcer stage: unspecified non-pressure ulcer stage Qualified Code(s): L97.529 - Non-pressure chronic ulcer of other part of left foot with unspecified severity (5) Diabetic neuropathy: Code(s): E11.40 - Type 2 diabetes mellitus with diabetic neuropathy, unspecified Category: Medical Qualifiers: Diabetes mellitus complication detail: diabetic polyneuropathy Diabetes mellitus type: type 2 Qualified Code(s): E11.42 - Type 2 diabetes mellitus with diabetic polyneuropathy Plan Patient was informed and verbally consented to the use of an ambient scribe for clinic note documentation during this visit. I discussed with the patient the importance of continuing with the current wound care regimen to promote healing. We also talked about the need to monitor his feet daily and to monitor for signs of infection. Advised patient to keep the dressing intact. - Prescribed diabetic shoes and inserts. - Debrided the left 2nd toe ulcer and applied a dressing. - Patient is to keep the dressing clean, dry, and intact. - Advised patient to wear wide toebox shoes. - Advised patient to wear supportive shoe gear and avoid barefoot walking. - Continue with diabetic management as per PCP. - Continue attending the wound care center for ongoing management of the diabetic foot ulcer. - Apply prescribed medication and bandages to the ulcer to promote healing. RTC in 3 weeks. Orders: Orders AMB Debridement/Avulsion Podiatry 04/04/25 E11.42 - Type 2 diabetes mellitus with diabetic polyneuropathy, E11.65 - Type 2 diabetes mellitus with hyperglycemia, E13.621 - Other specified diabetes mellitus with foot ulcer, L03.032 - Cellulitis of left toe, L97.509 - Non-pressure chronic ulcer of other part of unspecified foot with unspecified severity, L97.529 - Non-pressure chronic ulcer of other part of left foot with unspecified severity Medications: New [diabetic shoes and inserts] Please dispense 1 pair of diabetic shoes and 1-3 pairs of inserts 1 ea 0RF E11.42 - Type 2 diabetes mellitus with diabetic polyneuropathy, E11.65 - Type 2 diabetes mellitus with hyperglycemia, E13.621 - Other specified diabetes mellitus with foot ulcer, L03.032 - Cellulitis of left toe, L97.509 - Non-pressure chronic ulcer of other part of unspecified foot with unspecified severity, L97.529 - Non-pressure chronic ulcer of other part of left foot with unspecified severity Coding Level of Care Code Est Pt Level 4 (98433) Diagnoses Uncontrolled type 2 diabetes mellitus with hyperglycemia E11.65 Diabetes E13.621; L97.509 Diabetes mellitus complication detail: with foot ulcer Diabetes mellitus complication status: with skin complications Diabetes mellitus long-term insulin use: without long-term use Diabetes mellitus type: other specified (including ALMA) Cellulitis L03.032 Laterality: left Site of cellulitis: extremity Site of cellulitis of extremity: toe Ulcer of second toe of left foot, unspecified ulcer stage L97.529 Non-pressure ulcer stage: unspecified non-pressure ulcer stage Diabetic polyneuropathy associated with type 2 diabetes mellitus E11.42 Diabetes mellitus complication detail: diabetic polyneuropathy Diabetes mellitus type: type 2 CPT Codes Skin Debridement - CPT: 97435-Smnxtazqcve of active wound <20cm ([id number]) Time Spent (min) 42 Comment 10 mins for procedure
== END 2025-04-04 13:48 | disposition home or self-care (01) ==
LOC: HO.HPODS 13:20
PROVIDERS: PCP Internal Medicine; Visit Provider Student in an Organized Health Care Education/Training Program
DX: E11.65 Type 2 diabetes mellitus with hyperglycemia (principal); E11.621 Type 2 diabetes mellitus with foot ulcer; L03.032 Cellulitis of left toe; L97.529 Non-pressure chronic ulcer of other part of left foot with unspecified severity; E11.42 Type 2 diabetes mellitus with diabetic polyneuropathy
CPT/HCPCS: 97597; 99214

== ENCOUNTER → 2025-04-04 13:19 | Outpatient (BNVA) | payer OTHER, SELFPAY | PROVIDERS: PCP Internal Medicine; Visit Provider Student in an Organized Health Care Education/Training Program | DX: E11.65 Type 2 diabetes mellitus with hyperglycemia (principal); E11.621 Type 2 diabetes mellitus with foot ulcer; L97.529 Non-pressure chronic ulcer of other part of left foot with unspecified severity; L03.032 Cellulitis of left toe; E11.42 Type 2 diabetes mellitus with diabetic polyneuropathy | CPT/HCPCS: 97597 ==

== ENCOUNTER 2025-04-24 08:44 | Outpatient (AMB) | payer OTHER, SELFPAY ==
--- NOTE | 2025-04-24 08:56 | A.OFFVIS_ITS ---
Intake Intake Visit Reasons: Type 2 diabetes mellitus with hyperglycemia Accompanied by: Self / Same As Patient Allergies No Known Allergies* Allergy (Uncoded 03/29/25 10:47) Unknown HPI Comprehensive Diabetes Asmnt Most Recent Diabetes Results: 2 Hemoglobin A1c 8.7 % 07/03/18 Microalb/Creat Ratio 77.5 ug/mg cr 07/03/18 Cholesterol, (<200) 135 mg/dL 02/26/25 HDL Cholesterol, (>40) 23 mg/dL L 02/26/25 Triglycerides, (<150) 193 mg/dL H 02/26/25 Creatinine, (0.5-1.4) 0.72 mg/dL 03/07/25 BUN, (9-16) 26 mg/dL H 03/07/25 Sodium, (135-145) 139 mmol/L 03/07/25 Potassium, (3.3-5.1) 4.3 mmol/L 03/07/25 Chloride, (96-108) 105 mmol/L 03/07/25 Carbon Dioxide, (22-29) 23 mmol/L 03/07/25 Calcium, (8.4-10.2) 9.8 mg/dL 03/07/25 AST, (5-37) 43 U/L H 02/26/25 ALT, (0-40) 25 U/L 02/26/25 Total Protein, (6.5-8.0) 7.3 g/dL 02/26/25 Albumin, (3.5-5.0) 4.4 g/dL 02/26/25 [facility] Medical History (Updated 03/06/25 @ 09:40 by Eulalia Park MD) Osteophyte, left foot Surgical History History of surgery History of tonsillectomy Family History Other Substance use disorder Social History Household Members: Family Housing: House Do you presently have visiting nurse or other home services: No Alcohol intake: current Alcohol intake frequency: does not drink Patient Tobacco Use Status: Never used Tobacco e-Cigarette/Vaping Use: Never Used Second Hand Smoke Exposure: No service: No Current occupational status: employed Current occupation: [employer] Cognitive needs: No Hearing needs: No Vision needs: Yes (Contacts) Assessment & Plan Assessment & Plan (1) Uncontrolled type 2 diabetes mellitus with hyperglycemia: Code(s): E11.65 - Type 2 diabetes mellitus with hyperglycemia Plan: Diabetes self-management education and support participation record Assessment/scale: 1= needs instructed? 2= needs review? 3= comprehend keep point? 4= demonstrates understanding/ competent? NC= Not Covered Topics Learning Objective: Initial visit Initial or post srvc Initial or post srvc Initial or post srvc Initial or post srvc Initial or post srvc Post srvc Comments Pre Edu-assessment/plan Outcome or reassess O utcome or reassess Outcome or reassess Outcome or reassess Outcome or reassess Outcome or reassess Diabetes pathophysiology 1 Healthy eating 2 Being active 2 Taking medication 2 Monitoring glucose 2 Acute complication 2 Chronic complicated 1 Lifestyle and healthy coping 2 Diabetes distress in support 1 ?Diabetes pathophysiology: ?Defined diabetes med identify own type of diabetes; list 3 options for treating diabetes Healthy eating: ?Described effect of type, amount and ?timing of food on blood glucose; list 3 methods for planning meal Being active: ?State effect of exercise on blood glucose level Taking medication: ?State effect of diabetes medications on diabetes; name diabetes medications taking, action and side effects Monitoring glucose: ?Identify recommended blood glucose targets and personal target Acute complication: ?List symptoms and treatment of hyper and hypoglycemia, DKA, sick day guidelines and guidelines for severe weather or situations of crisis and diabetes supply manage Chronic complication: ?To find the relationship of blood glucose levels to long- term complications of diabetes in screening and preventative measures Lifestyle and healthy coping: ?Described lifestyle and healthy coping strategies to rule out diabetes self-management Diabetes to stress and support: ?Recognize Diabetes to stress and be able to identified support options Learning objectives: The patient was provided with verbal and written education on the following topics as outlined below. The patient met all learning objectives and was able to verbalize understanding and provide teach back of education topics discussed . The patient was provided with the opportunity to ask questions and all questions were answered. Patient Assessment Assess patient education level/literacy/barriers, patient's A1c on 01/17/2025 11.5%. Patient reports he had an ulcer on his left foot and had a debridement, states he is being followed by [facility] After reviewing patient's sensor data patient's glucose have improved. Patient is currently taking Lantus 25 units daily Humalog sliding scale Mounjaro 2.5 mg weekly, patient reports he has taken for 3 weeks has not experienced any GI side effects Metformin 500 mg b.i.d. Glucose levels have significantly improved since last A1c. Patient reports he has reduced amount of carbohydrates at meals Patient questions/concerns What is Diabetes? Pathophysiology How the body produces and uses insulin Identify type of DM Risk factors Signs of Diabetes Brief overview of Diabetes Management Monitoring blood sugar Following a meal plan Regular exercise Maintaining a healthy weight Taking medication as needed Members of the care team (PCP, RN, MA, RD, CDE, payroll tax specialist) Blood glucose monitoring When/how often to test Target blood sugar ranges Introduction to Nutrition Importance of healthy diet in managing DM Diet is personalized to individual preference Review patient?s regular diet/food preferences Who prepares meals/does food shopping/ Dining out?/ Barriers? How diet effects glucose Eating 3 balanced meals a day with small, healthy snacks between meals Review food groups Carbohydrates: What is a carbohydrate/Which food/food groups are considered carbohydrates Effect of carbohydrates on blood glucose Portion sizes Reading food labels Basic carb counting (if applicable per nursing assessment) Plate method Meal planning Recommendations: Follow plate method, consistent carbs and read nutritional labels. Smart Goal: Patient will keep carb portion that meals from 45-60 g per meal Educational Materials: The patient was provided with the following written educational materials: Planning Healthy Meals Handout Patient Response to instructions: Comprehension of Instructions: Fair Readiness to make changes: Contemplation How confident they feel about making changes: Positive Portions of this note were created using voice recognition software, please excuse any words or phrases that may have been misinterpreted. Patient Instructions: Include regular daily activity. ADA recommends 30 minutes of exercise 5 days a week. Weight loss talk to PCP or University Administrator before starting new plan. Test blood sugar as directed; Fasting and 2hpp largest meal. Watch trends in results. Utilize results and to assess how food, physical activity and medications affect blood sugar results. Bring glucometer or CGM to next visit. Be knowledgeable about diabetes medication, its action, side effects, efficacy, toxicity, prescribed dosage, appropriate timing and frequency of administration, effect of missed and delayed doses and instructions for storage, travel and safety. Problem solving techniques to monitor hypo/hyperglycemia episodes and treatments. Reduce risk reduction behaviors, smoking cessation, regular eye, foot and dental examinations. Coding Level of Care Code Est Pt Level 1 (54338) Diagnoses Uncontrolled type 2 diabetes mellitus with hyperglycemia E11.65
== END 2025-04-24 09:29 | disposition home or self-care (01) ==
LOC: HO.ENCR 08:45
PROVIDERS: Visit Provider Registered Nurse Diabetes Educator
DX: E11.65 Type 2 diabetes mellitus with hyperglycemia (principal)
CPT/HCPCS: 99499

== ENCOUNTER 2025-04-25 14:16 | Outpatient (AMB) | payer OTHER, SELFPAY ==
[2025-04-25 14:28] VITALS: BMI 44.0
--- NOTE | 2025-04-25 14:28 | A.OFFVIS_ITS ---
Vital Signs 3 04/25/25 14:28 Height 6 ft 2 in Weight 343 lb BMI 44.0 Intake Visit Reasons: left 2nd toe ulcer Intake Note: Florentin is a 44 year old male who presents today for a follow up on his left 2nd toe ulcer. Patient reports his blood sugars is currently at 151 and he has not been able to receive his diabetic shoes or inserts. He states everything has been going well and finds that his toe has been healing okay. Patient has no further questions or concerns at this time. Allergies No Known Allergies* Allergy (Uncoded 03/29/25 10:47) Unknown HPI Comments Details: The patient is a 44 year old male presenting for follow-up of a left 2nd toe diabetic ulcer. The ulcer on his left second toe has healed well and closed up significantly since his last visit. He has been compliant with dressing changes at home and denies any new injuries to his feet. He has an upcoming appointment with wound care for further assessment. He reports a sensation of his big toe being squeezed but denies any pain or bleeding from the area. The patient's history is significant for diabetes mellitus, and he reports his blood sugar has been well-controlled, with a recent reading of 151 mg/dL. He has not yet obtained his prescribed diabetic shoes and inserts but plans to contact the supplier soon. Denies any other pedal concerns. Denies any new pedal injuries. [facility] Medical History (Updated 04/28/25 @ 13:21 by Bonita Stern DPM) Other specified epidermal thickening Osteophyte, left foot Surgical History History of surgery History of tonsillectomy Family History Other Substance use disorder Social History Household Members: Family Housing: House Do you presently have visiting nurse or other home services: No Alcohol intake: current Alcohol intake frequency: does not drink Patient Tobacco Use Status: Never used Tobacco e-Cigarette/Vaping Use: Never Used Second Hand Smoke Exposure: No service: No Current occupational status: employed Current occupation: [employer] Cognitive needs: No Hearing needs: No Vision needs: Yes (Contacts) Review of Systems Const Details: Dermatological: Healed left 2nd toe ulcer. All systems reviewed & are unremarkable except as noted in HPI and below Physical Exam Vital Signs: BMI result Body Mass Index 44.0 Extrem Other: LLE Focused Physical Exam: Derm: Hyperkeratotic lesion noted to the dorsal aspect of the 2nd toe. Upon debridement, Healed Ulcer noted to the dorsal aspect of the 2nd toe. No purulence or drainage noted. No bleeding noted upon debridement. No maceration noted. Minimal erythema noted. No undermining, tunneling, or probing to bone noted. Edema noted to the LLE, worse to the 2nd toe. Toenails thickened, discolored, and dystrophic. Mottling of skin noted. Hyperkeratotic areas noted. Vasc: DP pulses palpable. PT pulses non-palpable due to edema. CFT > 3 secs. Temp gradient: warm to warm. Varicosities noted. Pedal hair absent. Neuro: Protective sensations grossly diminished. MSK: No pain on palpation to the ulcerative/hyperkeratotic site. No fluctuance or crepitus noted. ROM of the forefoot slightly limited. Hammertoe deformities noted. Mildly antalgic gait unassisted. Office Procedures AMB Debridement/Avulsion Podia Details: Debrided the hyperkeratotic lesion noted to the left 2nd toe with a curette without incidents. Upon debridement the ulcer was noted to be healed. [id number] of Callus (1) Procedure code (CPT) selection complete Results Reviewed Results Reviewed: Laboratory Tests 01/17/25 02/07/25 03/07/25 07:29 15:45 17:00 WBC 10.2 Glucose (Clinic) Random Glucose 142 H Hemoglobin A1c % 11.5 H 03/28/25 09:39 WBC Glucose (Clinic) 131 H Random Glucose Hemoglobin A1c % Left foot wound culture (02/18/25): Coag negative Staph Podiatry read of Left foot 3 views xrays (01/16/25): Osteophytic changes noted. Calcaneal spur plantarally and posteriorly, worse posterior. No soft tissue emphysema noted. No acute fractures or dislocations noted. Podiatry read of Left foot MRI (01/16/25): Ulcer noted to the dorsal aspect of the 2nd toe with surrounding edema noted. Bone quality changes noted to the proximal phalanx of the 2nd toe. No soft tissue emphysema noted. Left foot 3 views xrays (01/16/25): FINDINGS: No acute cortical disruption or gross malalignment. No lytic or blastic lesions. Exostosis at the Achilles tendon insertion. No gross joint effusion. No subcutaneous emphysema. Soft tissue calcifications in the plantar regions of the toes. Sclerosis in the navicular. IMPRESSION: Degenerative changes without acute fracture or dislocation. Enthesopathy, Achilles tendon. Left foot MRI (01/16/25): FINDINGS: Lisfranc ligament: Intact Soft tissues: There is edema and moderate to severe fatty replacement of foot musculature. There is no hyperenhancement of the deep soft tissues. There is edema in the dorsal subcutaneous soft tissues without hyperenhancement. There is edema involving the deep and superficial soft tissues of the second digit at the base of the toe through the left lateral of the DIP joint with hyperenhancement. There is an 18 mm wide area of skin ulceration dorsal to the head of the proximal phalanx. There is no loculated fluid collection. There is a joint effusion with mild hyperenhancement of the synovium. Metatarsophalangeal (MTP) joint and sesamoids of the great toe: There is a joint effusion. Joint capsule structures and plantar plate complex are intact. Lesser MTP joints & Plantar plates: Intact and unremarkable. Bones/Marrow: The head of the proximal phalanx of the second digit demonstrates very subtle decreased signal on T1 imaging with cortical thinning. There is mildly increased signal on fluid sensitive sequences in the diaphysis through the head of the proximal phalanx with concordant mild enhancement. Bone marrow signal is physiologic otherwise. IMPRESSION: There is dorsal skin ulceration adjacent the second proximal phalanx head with cellulitis involving deep and superficial soft tissues of the second toe extending from the base of the toe through the DIP joint. There are subtle signal changes on T1 imaging in the head of the proximal phalanx that could be reactive in nature or could represent early osteomyelitis. Signal changes and mild enhancement in the diaphysis of the proximal phalanx are probably reactive in nature. Small joint effusion with mild enhancement without thickening of the synovium is probably reactive in nature and less likely to represent a septic arthritis. First MTP joint effusion. LLE Venous duplex (01/16/25): FINDINGS: Respiratory variation, normal compression and augmented flow are demonstrated in the interrogated left common femoral vein, superficial femoral vein, profunda femoral vein, popliteal vein and midcalf peroneal and posterior tibial venous segments . There is no Pennington's cyst. IMPRESSION: No acute deep venous thrombosis interrogated veins, left lower extremity. Negative for DVT. Assessment & Plan Assessment & Plan (1) Uncontrolled type 2 diabetes mellitus with hyperglycemia: Code(s): E11.65 - Type 2 diabetes mellitus with hyperglycemia Category: Medical (2) Diabetes: Code(s): E11.9 - Type 2 diabetes mellitus without complications Category: Medical Qualifiers: Diabetes mellitus complication detail: with foot ulcer Diabetes mellitus complication status: with skin complications Diabetes mellitus watermaster insulin use: without watermaster use Diabetes mellitus type: other specified (including ALMA) Qualified Code(s): E13.621 - Other specified diabetes mellitus with foot ulcer; L97.509 - Non-pressure chronic ulcer of other part of unspecified foot with unspecified severity (3) Cellulitis: Code(s): L03.90 - Cellulitis, unspecified Category: Medical Qualifiers: Laterality: left Site of cellulitis: extremity Site of cellulitis of extremity: toe Qualified Code(s): L03.032 - Cellulitis of left toe (4) Ulcer of left second toe: Code(s): L97.529 - Non-pressure chronic ulcer of other part of left foot with unspecified severity Category: Medical Qualifiers: Non-pressure ulcer stage: unspecified non-pressure ulcer stage Q ualified Code(s): L97.529 - Non-pressure chronic ulcer of other part of left foot with unspecified severity (5) Diabetic neuropathy: Code(s): E11.40 - Type 2 diabetes mellitus with diabetic neuropathy, unspecified Category: Medical Qualifiers: Diabetes mellitus type: type 2 Diabetes mellitus complication detail: d iabetic polyneuropathy Qualified Code(s): E11.42 - Type 2 diabetes mellitus with diabetic polyneuropathy (6) Other specified epidermal thickening: Code(s): L85.8 - Other specified epidermal thickening Category: Medical Plan Patient was informed and verbally consented to the use of an ambient scribe for clinic note documentation during this visit. I informed the patient that the ulcer on his left second toe has healed very well. I advised him that routine dressing changes are no longer needed, but he should protect the area with a bandage to prevent friction, particularly when wearing work shoes. I provided anticipatory guidance on applying iodine if the skin becomes macerated to keep the area dry. I reviewed the importance of maintaining good blood sugar control to promote healing. We discussed his upcoming wound care appointment and the plan for routine diabetic nail and callus care to start at his next follow-up in 6 weeks. I also reminded him to follow up on obtaining his diabetic shoes and inserts. - Debrided the hyperkeratotic lesion noted to the left 2nd toe. - The patient no longer needs to perform routine dressing changes at home. - If the skin on the toe appears macerated, he should apply iodine to keep it dry. - The patient was advised to wear a protective bandage over the area when wearing tight shoes to prevent friction. - Advised patient to avoid tight-fitting shoes and to wear supportive shoe gear. - Patient should avoid barefoot walking. - Advised patient to wear wide toebox shoes. - Continue with diabetic management as per PCP. RTC in 6 weeks. Orders: Orders 2 AMB Debridement/Avulsion Podiatry 04/25/25 L03.032 - Cellulitis of left toe, L85.8 - Other specified epidermal thickening, L97.529 - Non-pressure chronic ulcer of other part of left foot with unspecified severity Coding Level of Care Code Est Pt Level 4 (48933) Diagnoses Uncontrolled type 2 diabetes mellitus with hyperglycemia E11.65 Diabetes E13.621; L97.509 Diabetes mellitus complication detail: with foot ulcer Diabetes mellitus complication status: with skin complications Diabetes mellitus residential insulin use: without residential use Diabetes mellitus type: other specified (including ALMA) Cellulitis L03.032 Laterality: left Site of cellulitis: extremity Site of cellulitis of extremity: toe Ulcer of second toe of left foot, unspecified ulcer stage L97.529 Non-pressure ulcer stage: unspecified non-pressure ulcer stage Diabetic polyneuropathy associated with type 2 diabetes mellitus E11.42 Diabetes mellitus type: type 2 Diabetes mellitus complication detail: diabetic polyneuropathy Other specified epidermal thickening L85.8 CPT Codes Skin Debridement - CPT: 82778-[id number] of Callus (1) ([id number]) Time Spent (min) 35 Comment 5 mins for procedure
== END 2025-04-25 14:32 | disposition home or self-care (01) ==
LOC: HO.HPODS 14:16
PROVIDERS: PCP Internal Medicine; Visit Provider Student in an Organized Health Care Education/Training Program
DX: E11.65 Type 2 diabetes mellitus with hyperglycemia (principal); E11.621 Type 2 diabetes mellitus with foot ulcer; L97.509 Non-pressure chronic ulcer of other part of unspecified foot with unspecified severity; L03.032 Cellulitis of left toe; L97.529 Non-pressure chronic ulcer of other part of left foot with unspecified severity; E11.42 Type 2 diabetes mellitus with diabetic polyneuropathy; L85.8 Other specified epidermal thickening
CPT/HCPCS: 11055; 99214

== ENCOUNTER → 2025-04-25 14:16 | Outpatient (BNVA) | payer OTHER, SELFPAY | PROVIDERS: PCP Internal Medicine; Visit Provider Student in an Organized Health Care Education/Training Program | DX: E11.65 Type 2 diabetes mellitus with hyperglycemia (principal); L03.032 Cellulitis of left toe; L97.529 Non-pressure chronic ulcer of other part of left foot with unspecified severity; E11.42 Type 2 diabetes mellitus with diabetic polyneuropathy; L85.8 Other specified epidermal thickening | CPT/HCPCS: 11055 ==

== ENCOUNTER 2025-05-02 15:11 | Outpatient (REF) | payer OTHER, SELFPAY ==
--- NOTE | ~2025-05-02 | US_ITS ---
EXAMINATION: US SOFT TISSUE HEAD AND/OR NECK CLINICAL INFORMATION: Localized palpable abnormality right side of neck. COMPARISON: None available. TECHNIQUE: Linear transducer strange-scale and color Doppler examination with attention to the palpable abnormality in the right aspect of the neck as indicated by the patient. FINDINGS: No evidence of mass, fluid collection, or abnormal lymph node is present. No definite correlate to the region of palpable concern is identified on sonography. There is a mildly prominent but morphologically normal right level 2 lymph node measuring 2.8 x 0.9 x 1.1 cm, with preserved fatty hilum, thickened cortex, and reniform shape. There is a smaller right level 3 lymph node measuring 1.5 x 0.5 x 1.2 cm which is also morphologically normal without suspicious feature. US/US soft tiss head and/or neck IMPRESSION: 1. The palpable abnormality of concern in the right neck shows no ultrasound correlate. There is no mass or suspicious finding. 2. There are 2 morphologically normal right cervical chain lymph nodes are identified. Electronically signed by: Dimitri Copeland MD 05/02/2025 04:23 PM [facility]
== END 2025-05-02 15:12 ==
LOC: HO.US 15:11
PROVIDERS: PCP Internal Medicine; Visit Provider Internal Medicine
DX: R22.1 Localized swelling, mass and lump, neck (principal)
CPT/HCPCS: 76536

== ENCOUNTER → 2025-05-02 15:12 | Outpatient (BNV) | payer OTHER, SELFPAY | PROVIDERS: PCP Internal Medicine; Visit Provider Radiology Diagnostic Radiology | DX: R22.1 Localized swelling, mass and lump, neck (principal) | CPT/HCPCS: 76536 ==

== ENCOUNTER 2025-05-10 14:30 | Outpatient (RCR) | payer OTHER, SELFPAY | END 2025-05-10 16:47 | disposition home or self-care (01) | LOC: HO.WCC 14:30 | PROVIDERS: Visit Provider Surgery Vascular Surgery | DX: E11.65 Type 2 diabetes mellitus with hyperglycemia (principal); E11.40 Type 2 diabetes mellitus with diabetic neuropathy, unspecified; M20.42 Other hammer toe(s) (acquired), left foot; Z09 Encounter for follow-up examination after completed treatment for conditions other than malignant neoplasm; Z79.4 Long term (current) use of insulin; Z79.84 Long term (current) use of oral hypoglycemic drugs; Z86.31 Personal history of diabetic foot ulcer | CPT/HCPCS: 11044; 11055; 17250; 97597; 99212; 99213 ==